=== PATIENT | female | born 1945 | race Caucasian/White ===

== ENCOUNTER 2017-07-03 13:51 | Observation (INO) | payer MEDICARE, OTHER, SELFPAY ==
[2017-07-03] VITALS (9 sets, daily range): BP systolic 127–153; BP diastolic 75–98; PULSE 71–76; RESP 16–20; TEMP 36.3–37.2; O2SAT 96–98; BMI 38.1; BMI 38.7
--- NOTE | 2017-07-03 13:55 | NURSING ---
NO OLD EKGS
--- NOTE | 2017-07-03 14:01 | EKG12_ITS ---
Test Reason : NEURO Blood Pressure : / mmHG Vent. Rate : 076 BPM Atrial Rate : 076 BPM P-R Int : 328 ms QRS Dur : 098 ms QT Int : 394 ms P-R-T Axes : 041 024 043 degrees QTc Int : 443 ms Sinus rhythm with 1st degree A-V block Otherwise normal ECG Confirmed by ELMER EVANS, JOSUÉ ([id number]), video tape editor ALEXANDER QUISPE ([id number]) on 07/05/2017 3:13:00 PM Referred By: ZOLTAN Confirmed By:JOSUÉ PAYNE MD
--- NOTE | 2017-07-03 14:01 | CT_ITS ---
STUDY: CT BRAIN WITHOUT CONTRAST REASON FOR EXAM: Female, 72 years old. 7 onset of left arm weakness and garbled speech at 12:30 AM today. All symptoms have resolved. RADIATION DOSAGE (If Supplied By Facility): CTDIvol = ( 44.99 ) mGy, DLP = ( 728.62 ) mGycm TECHNIQUE: Transaxial CT imaging of the brain was performed without administration of intravenous contrast material. Coronal and sagittal reconstructions were also performed. Individualized dose optimization techniques were used for this CT. COMPARISON: None. FINDINGS: Normal soft tissue structures. Normal calvarium. Normal size ventricles and extra-axial spaces for the patient's age. Hypodensities in the subcortical white matter and periventricular white matter of both cerebral hemispheres are chronic white matter ischemic changes. Normal basal ganglia and thalami. Normal brainstem. Normal cerebellum. There is no intracranial hemorrhage. There are no findings of an acute ischemic infarction. Sclerotic wall thickening with mucosal thickening of the right maxillary sinus and contraction due to chronic sinusitis. Benign mucus retention cyst and minimal mucosal thickening in the left maxillary sinus. The remaining paranasal sinuses are normal. CT/Brain/Head without Contrast IMPRESSION: 1. No CT evidence of intracranial bleeding or acute ischemic infarct at this time. 2. Chronic white matter ischemic changes in both cerebral hemispheres. Electronically Signed: Jovon Argueta MD at 14:35 EDT , Service support ,
[2017-07-03 14:12] LABS: Absolute Lymphocyte Count 1.56 X10^3/ul (0.83-4.51); Absolute Neutrophil Count 5.1 X10^3/uL (2.0-7.7); Basophil# 0.05 X10^3/uL; Basophil% 0.6 % (0-1); Eosinophil# 0.66 X10^3/uL; Eosinophils% 8.4 % (0-5); Hematocrit 36.5 % (37-47); Hemoglobin 12.4 g/dl (12.0-15.0); Lymphocyte # 1.56 X10^3/ul (4.0); Lymphocyte % 19.8 % (19-41); Mean Corpuscular Hgb 30.3 pg (27.0-32.0); Mean Corpuscular Volume 89.2 fL (81-99); Mean Platelet Vol. 9.1 fl (6.2-12.0); Monocyte# 0.52 X10^3/uL; Monocyte% 6.6 % (0-10); Neutrophil # 5.07 X10^3/uL (2.7-7.7); Neutrophil % 64.5 % (47-70); POSITIVE COUNT NO; POSITIVE DIFFERENTIAL NO; POSITIVE MORPHOLOGY NO; Platelet Count 391 K/mm3 (150-450); RBC Distribution Width CV 14.4 % (11.6-14.6); RBC Distribution Width SD 46.7 fl (35.1-43.9); Red Blood Count 4.09 M/mm3 (4.2-5.4); White Blood Count 7.9 K/mm3 (4.4-11.0)
[2017-07-03 14:18] LABS: Prothrombin Time (Protime)PT. 13.1 SECONDS (11.7-14.9)
[2017-07-03 14:19] LABS: Partial Thromboplast Time 29.7 Seconds (24.1-36.2)
--- NOTE | 2017-07-03 14:20 | RAD_ITS ---
STUDY: X-RAY CHEST REASON FOR EXAM: Female, 72 years old. Left-sided weakness. TECHNIQUE: AP upright portable view. COMPARISON: None. FINDINGS: Pulmonary hyperinflation. The lungs are clear. There is no demonstrated pleural abnormality. Normal size heart. Normal mediastinum and manoj. Normal visualized pulmonary arteries. Normal visualized aortic arch and descending thoracic aorta. Mild dextroscoliosis of the thoracic spine and accentuated by rotated positioning. Normal visualized ribs, clavicles, and shoulders. Prominent retrocardiac region soft tissue is most likely large gastric hernia. RAD/Chest 1 View IMPRESSION: 1. No acute cardiopulmonary pathology. 2. Pulmonary hyperinflation is suspicious for mild COPD. 3. Large left gastric hernia. Electronically Signed: Jovon Argueta MD at 14:58 EDT , Service support ,
--- NOTE | 2017-07-03 14:27 | ED.VISSUMM ---
- ER Visit Summary Date of Service: 07/03/17 Chief Complaint: Left arm weakness and speech difficulty History of Present Illness: The patient is a 72 F who states that at 12:40 PM this afternoon she developed difficulty moving her left arm. Patient states her arm would not go where she wanted it to go. She did not have any paresthesias. She called her who is nearby and she had difficulty speaking and expressing what she wanted to say to him. She states that her speech was very slurred. He came to check on her and symptoms were resolved by 1 PM. Patient presents here shortly before 2 PM for evaluation. Patient denies headache at present and did not have a headache with this episode. She did state that she had had some floaters in her left eye and a mild headache last week. Past history significant for hypertension and high cholesterol. Physical Examination: Blood pressure is 151/98, temperature 99.0, heart rate 76, respiratory rate 18, pulse ox 98% on room air. Patient sitting upright in bed no acute distress. Head neck examination is grossly unremarkable. Heart is regular rate and rhythm. Lung sounds are clear. Abdomen is soft and nontender. Neuro exam at this time reveals an NIH score of 0. Test Results: EKG is sinus at 76 with a first-degree AV block. No acute ischemia is noted. CT head shows no evidence of acute bleed or ischemic infarct. Portable chest x-ray is possible mild COPD with evidence of a hiatal hernia. CBC and chemistry studies are normal. Coags normal. Troponin is less than 0.02. Emergency Department Course and Treatment: On repeat evaluation patient is resting comfortably. She has had no recurrence of her symptoms. Patient will be admitted for further stroke workup and evaluation. Treatment Plan: [] Disposition: Admit Impression: TIA This note was generated with [employer] dictation software. It may contain incorrect words, spelling, and punctuation that were not noted in review of the chart prior to signing ED Disposition - Plan for ED Patient: Chief Complaint: Neuro S/Sx Referrals: Bright Gupta MD [Primary Care Provider] -
[2017-07-03 14:31] LABS: Anion Gap 8 (5-15); BUN 15 mg/dL (7-18); BUN/Creat Ratio 17.8 RATIO (10-20); Calcium,Total 8.7 mg/dL (8.5-10.1); Chloride 99 mmol/L (98-107); Creatinine, Serum 0.84 mg/dL (0.55-1.02); EST Glomerular Filtration Rate 71 mL/min (>60); Est Glom Filt Rate - Afr Amer 86 mL/min (>60); Estimated Creatinine Clearance 47.03 ml/min; Glucose 130 mg/dL (74-106); Potassium 3.6 mmol/L (3.5-5.1); Sodium Level 136 mmol/L (136-145)
--- NOTE | 2017-07-03 15:19 | NURSING ---
PCU OBS TIA, LEFT ARM WEAKNESS, DYSPHGIA SHANE
--- NOTE | 2017-07-03 15:55 | PCM.HP.STD ---
<Emily Blandon - Last Filed: 07/03/17 16:30> Problem List (1) Hypertension Status: Chronic (2) Hyperlipemia Status: Chronic (3) Zenkers diverticulum Status: Chronic (4) GERD (gastroesophageal reflux disease) Status: Chronic (5) CAD (coronary artery disease) Status: Chronic (6) Marijuana use Status: Chronic (7) Obesity (BMI 30-39.9) Status: Chronic History of Present Illness Date of Admission: 07/03/17 Chief Complaint: Left facial droop, slurred speech, left arm weakness. The patient is a 72 year old F who presents to the emergency room with left facial droop, slurred speech, left arm weakness which began around 12:45 PM today and resolved by approximately 1 PM. Patient states Tuesday and Tuesday this past week she noticed vision changes in her left eye and describes a zigzag appearance in her vision which came intermittently a few times and has since resolved. She denies headache. Her symptoms have now completely resolved. She denies history of stroke. She denies chest pain, shortness of breath. She has a past medical history of hypertension, hyperlipidemia, GERD, Zenker's diverticulum, CAD, marijuana use, occasional tobacco use. She has a remote history of detached left retina. Patient denies recent illness or other associated symptoms. Past Medical History Past Medical History (Chronic Problems): Chronic Problems Hypertension (Chronic) Hyperlipemia (Chronic) Zenkers diverticulum (Chronic) GERD (gastroesophageal reflux disease) (Chronic) CAD (coronary artery disease) (Chronic) Marijuana use (Chronic) Obesity (BMI 30-39.9) (Chronic) Allergies quinapril [From Accupril] Adverse Reaction (Verified 07/03/17 14:05) Other Home Medications: Ambulatory Orders Medication Instructions Recorded Aspirin [Aspirin, Baby] 81 mg PO QHS 01/18/17 Atenolol [Tenormin] 25 mg PO DAILY 01/18/17 Cholecalciferol (VIT D3) [Vitamin 2,000 unit PO DAILY 01/18/17 D] Cyanocobalamin (Vitamin B-12) 1,000 mcg PO DAILY 01/18/17 [Vitamin B12] Folic Acid 2 mg PO DAILY@0800 01/18/17 Losartan/Hydrochlorothiazide 1 each PO DAILY 01/18/17 [Losartan-Hctz 100-25 mg Tab] Multivitamins,Therapeutic 1 tablet PO DAILY 01/18/17 [Multivitamin] Omeprazole Magnesium [Prilosec Otc] 20 mg PO DAILY 01/18/17 Psyllium [Metamucil] 1 packet PO DAILY 01/18/17 Atorvastatin Calcium [Lipitor] 40 mg PO DAILY 07/03/17 Surgical History: - - Tubal ligation, lymph node removal left neck due to necrotic lymph node, Psychiatric History: No pertinent psych hx [employer] History: No pertinent [employer] history Lives: Spouse/ Significant Other Smoking Status: Current some day smoker Alcohol: Occasional Drugs: Marijuana - *Family History Maternal History Items: Hypertension Paternal History Items: Cancer - Colon Review of Systems Constitutional: Denies: Chills, Fever, Weight Change HEENT: Denies: Head Aches, Sinus Congestion, Sinus Drainage Cardiovascular: Denies: Chest Pain, Palpitations Respiratory: Denies: Cough, Shortness of breath at rest, Sputum production Gastrointestinal: Denies: Abdominal Pain, Nausea, Vomiting Genitourinary: Denies: Dysuria Musculoskeletal: Denies: Joint Pain, Joint Tenderness Skin: Denies: Rash, Wounds Neurological: Reports: Blurred vision - Left eye, resolved., Slurred speech, Numbness - Left arm, - - Left facial droop. Psychiatric: Denies: Anxiety, Depression, Homicidal Ideations, Suicidal Ideations Hematologic/ Lymphatic: Denies: Easy Bruising, Easy Bleeding VTE Information - Inpt Only VTE Present on Admission: No VTE Mechan Device Prophylaxis: None VTE Pharm Prophylaxis ordered?: Yes - Physical Exam General: Alert, Oriented x3, Cooperative, No apparent distress HEENT: Atraumatic, PERRLA, EOMI, Normocephalic Neck: Supple, No JVD, Negative Carotid Bruits Lungs: Clear to auscultation, Normal air movement Cardiovascular: Regular rate, Regular Rhythm, Normal S1, Normal S2, No murmurs Abdomen: Bowel Sounds Present, Soft, Non Tender Extremities: No clubbing, No cyanosis, No edema, Capillary Refill Less than 3 Seconds Skin: No rashes, No breakdown Musculoskeletal: No Tenderness to Palpation of Joints or Extremities Neurological: Cranial nerves II-XII grossly intact, Neuro grossly intact Psych/Mental Status: Normal Affect, Appropriate Vital Signs Temp Pulse Resp BP Pulse Ox 99.0 F 76 18 153/83 H 98 07/03/17 13:53 07/03/17 15:34 07/03/17 15:34 07/03/17 15:34 07/03/17 15:34 Oxygen Delivery Method Room Air Weight: 91.6 kg Body Mass Index (BMI) 38.1 Laboratory Tests Past 24 Hrs 07/03/17 07/03/17 07/03/17 14:01 14:01 14:01 WBC 7.9 RBC 4.09 L Hgb 12.4 Hct 36.5 L MCV 89.2 MCH 30.3 MCHC 34.0 RDW 14.4 RDW Differential 46.7 H Plt Count 391 MPV 9.1 Immature Gran % (Auto) 0.100 Neut % (Auto) 64.5 Lymph % (Auto) 19.8 [place] % (Auto) 6.6 Eos % (Auto) 8.4 H Baso % (Auto) 0.6 Absolute Neuts (auto) 5.1 Absolute Lymphs (auto) 1.56 Total Counted Not Reportable PT 13.1 INR 1.0 APTT 29.7 Sodium 136 Potassium 3.6 Chloride 99 Carbon Dioxide 29.0 Anion Gap 8 BUN 15 Creatinine 0.84 Estim Creat Clear Calc 47.03 Est GFR (MDRD) Af Amer 86 Est GFR (MDRD) Non-Af 71 BUN/Creatinine Ratio 17.8 Glucose 130 H Calcium 8.7 Troponin I < 0.02 Assessment/Plan 1. Suspected TIA-previously reported left facial droop, slurred speech and left arm weakness. These resolved in approximately 15-20 minutes. NIH currently 0. EKG sinus rhythm with first-degree AV block. No evidence of ischemia. CT without evidence of acute bleed or ischemic infarct. Chest x-ray shows possible mild COPD and hiatal hernia. Troponin negative ?1. Glucose elevated on admission, 130. Complete hemoglobin A1c. Check fasting lipid panel in a.m. Check TSH, mag. Complete MRI of brain. CTA head/neck. Consult neurology. PT/OT/ST. 2. Hypertension-stable, continue home regimen. 3. Hyperlipidemia-continue statin. Fasting lipid panel in a.m. 4. CAD-continue aspirin, statin. 5. GERD- Continue PPI. Patient underwent EGD January [address] Carvalho which showed moderate hiatal hernia, mid esophageal diverticulum, Zenker's diverticulum. 6. Tobacco use/marijuana use-encouraged smoking cessation. 7. Obesity- Diet and lifestyle modifications encouraged. DVT prophylaxis-Lovenox subcu. This patient was seen by STEFAN Lizama under the supervision of Dr. Oaets. <Landon Oates - Last Filed: 07/03/17 17:06> History of Present Illness As mentioned above symptoms lasted for about 15-20 minutes. I agree with above note [] Past Medical History Allergies quinapril [From Accupril] Adverse Reaction (Verified 07/03/17 14:05) Other - Physical Exam General: Alert, Oriented x3, Cooperative HEENT: Atraumatic, PERRLA, EOMI, Normocephalic Neck: Supple, No JVD, Negative Carotid Bruits Lungs: Clear to auscultation, Normal air movement Cardiovascular: Regular rate, No murmurs, - - EKG shows normal sinus rhythm at 76 bpm Abdomen: Bowel Sounds Present, Soft, Non Tender Extremities: No edema, Capillary Refill Less than 3 Seconds Skin: No rashes, No breakdown Musculoskeletal: No Tenderness to Palpation of Joints or Extremities, Arthritic Changes Neurological: Cranial nerves II-XII grossly intact Psych/Mental Status: Normal Affect, Appropriate Vital Signs Temp Pulse Resp BP Pulse Ox 98.9 F 74 18 135/75 H 97 07/03/17 16:20 07/03/17 16:20 07/03/17 16:20 07/03/17 16:20 07/03/17 16:20 Oxygen Delivery Method Room Air Weight: 191 lb 9.307 oz Body Mass Index (BMI) 38.7 Assessment/Plan This patient was seen in conjunction with Emily SANCHEZ. I have independently interviewed and examined the patient and reviewed pertinent history, examination findings, laboratory and plan of management. I have reviewed the note and agree with the documented findings with the few additional points. In brief, patient is admitted for TIA symptoms as mentioned above. Patient denies prior stroke, coronary artery disease or peripheral artery disease. Admitted for stroke workup as mentioned above. I have discussed my assessment with Emily SANCHEZ and orders have been reviewed. Code Visit OBSV E&M: 02674 Initial observation care L3
--- NOTE | 2017-07-03 16:26 | CT_ITS ---
STUDY: CTA NECK WITH CONTRAST REASON FOR EXAM: Female, 72 years old. CVA, left sided weakness and garbled speech earlier today, all symptoms resolved. Hx hypertension. RADIATION DOSAGE (If Supplied By Facility): CTDIvol = ( 16.28 ) mGy, DLP = ( 712.41 ) mGycm TECHNIQUE: CT angiography with multi-detector data acquisition was performed from the aortic arch to the skull base following intravenous administration of 100mL ml of Isovue 370 contrast. MIP images were reconstructed from the axial data set. Post-processing of the angiographic images was performed, with multiplanar reformation and 3D reconstruction. COMPARISON: None. FINDINGS: AORTIC ARCH: There is atherosclerotic calcific plaque formation of the aortic arch and great vessels arising from the aortic arch, without a hemodynamically significant stenosis. There is a normal origin of the brachiocephalic, left common carotid, and left subclavian arteries. Normal origins of the brachiocephalic, left common carotid, and left subclavian arteries. RIGHT CAROTID ARTERIES: Normal right common carotid artery (CCA). Normal right common carotid bulb. There is mild atherosclerotic plaque formation of the origin of the right internal carotid artery with a calculated stenosis of 35%. Normal visualized cervical portion of the right internal carotid artery. Normal origin of the right external carotid artery (ECA). LEFT CAROTID ARTERIES: Normal left common carotid artery (CCA). Normal left common carotid bulb. There is moderate atherosclerotic plaque formation of the origin of the left internal carotid artery with a calculated stenosis of 62%. Normal visualized cervical portion of the left internal carotid artery. Normal origin of the left external carotid artery (ECA). VERTEBRAL ARTERIES: There is nonvisualization of the distal left vertebral artery. This may represent slow flow or stenosis. IMPRESSION: There is mild atherosclerotic plaque formation of the origin of the right internal carotid artery with a calculated stenosis of 35%. There is moderate atherosclerotic plaque formation of the origin of the left internal carotid artery with a calculated stenosis of 62%. There is nonvisualization of the distal left vertebral artery. This may represent slow flow or stenosis. Electronically Signed: Franco Rao MD at 18:22 EDT , Service support , STUDY: CTA OF THE BRAIN REASON FOR EXAM: Female, 72 years old. CVA, left sided weakness and garbled speech earlier today, all symptoms resolved. Hx hypertension. RADIATION DOSAGE (If Supplied By Facility): CTDIvol = ( 16.28 ) mGy, DLP = ( 812.41 ) mGycm TECHNIQUE: CT angiography was performed with a multi-detector CT scanner. Data acquisition was obtained from the skull base through the vertex following intravenous administration of 100 ml of Iso 370. MIP images were reconstructed from the axial data set. Post-processing of the angiographic images was performed, with multiplanar reformation and 3D reconstruction. Individualized dose optimization techniques were used for this CT. COMPARISON: CT Brain 3.18 FINDINGS: Normal bilateral petrous carotid arteries. There is calcified plaque formation of the right cavernous carotid artery, without a cross-sectional luminal stenosis. There is calcified plaque formation of the left cavernous carotid artery, without a cross-sectional luminal stenosis. Normal right A1 segments of the anterior cerebral artery. Normal left A1 segments of the anterior cerebral artery. There is non-visualization of the anterior communicating artery (ACOM). Normal bilateral A2 segments of the anterior cerebral arteries. Normal right M1 and M2 segments of the middle cerebral arteries, with a normal M1 bifurcation. Normal left M1 and M2 segments of the middle cerebral arteries, with a normal M1 bifurcation. There is non-visualization of the right posterior communicating artery (PCOM). Normal left posterior communicating artery (PCOM). Normal bilateral vertebral arteries. Normal basilar artery with a normal basilar bifurcation. The visualized bilateral superior cerebellar (SCA) arteries are normal. Normal bilateral P1, P2 and visualized P3 segments of the posterior cerebral arteries. There is no demonstrated aneurysm of the [place]. There is no demonstrated abnormality of the visualized brain. CT/CTA Head W/WO Contrast IMPRESSION: There is non-visualization of the anterior communicating artery (ACOM). There is non-visualization of the right posterior communicating artery (PCOM). There is calcified plaque formation of the right cavernous carotid artery, without a cross-sectional luminal stenosis. There is calcified plaque formation of the left cavernous carotid artery, without a cross-sectional luminal stenosis. Electronically Signed: Franco Rao MD at 18:26 EDT , Service support ,
--- NOTE | 2017-07-03 16:26 | CT_ITS ---
STUDY: CTA NECK WITH CONTRAST REASON FOR EXAM: Female, 72 years old. CVA, left sided weakness and garbled speech earlier today, all symptoms resolved. Hx hypertension. RADIATION DOSAGE (If Supplied By Facility): CTDIvol = ( 16.28 ) mGy, DLP = ( 712.41 ) mGycm TECHNIQUE: CT angiography with multi-detector data acquisition was performed from the aortic arch to the skull base following intravenous administration of 100mL ml of Isovue 370 contrast. MIP images were reconstructed from the axial data set. Post-processing of the angiographic images was performed, with multiplanar reformation and 3D reconstruction. COMPARISON: None. FINDINGS: AORTIC ARCH: There is atherosclerotic calcific plaque formation of the aortic arch and great vessels arising from the aortic arch, without a hemodynamically significant stenosis. There is a normal origin of the brachiocephalic, left common carotid, and left subclavian arteries. Normal origins of the brachiocephalic, left common carotid, and left subclavian arteries. RIGHT CAROTID ARTERIES: Normal right common carotid artery (CCA). Normal right common carotid bulb. There is mild atherosclerotic plaque formation of the origin of the right internal carotid artery with a calculated stenosis of 35%. Normal visualized cervical portion of the right internal carotid artery. Normal origin of the right external carotid artery (ECA). LEFT CAROTID ARTERIES: Normal left common carotid artery (CCA). Normal left common carotid bulb. There is moderate atherosclerotic plaque formation of the origin of the left internal carotid artery with a calculated stenosis of 62%. Normal visualized cervical portion of the left internal carotid artery. Normal origin of the left external carotid artery (ECA). VERTEBRAL ARTERIES: There is nonvisualization of the distal left vertebral artery. This may represent slow flow or stenosis. IMPRESSION: There is mild atherosclerotic plaque formation of the origin of the right internal carotid artery with a calculated stenosis of 35%. There is moderate atherosclerotic plaque formation of the origin of the left internal carotid artery with a calculated stenosis of 62%. There is nonvisualization of the distal left vertebral artery. This may represent slow flow or stenosis. Electronically Signed: Franco Rao MD at 18:22 EDT , Service support , STUDY: CTA OF THE BRAIN REASON FOR EXAM: Female, 72 years old. CVA, left sided weakness and garbled speech earlier today, all symptoms resolved. Hx hypertension. RADIATION DOSAGE (If Supplied By Facility): CTDIvol = ( 16.28 ) mGy, DLP = ( 812.41 ) mGycm TECHNIQUE: CT angiography was performed with a multi-detector CT scanner. Data acquisition was obtained from the skull base through the vertex following intravenous administration of 100 ml of Iso 370. MIP images were reconstructed from the axial data set. Post-processing of the angiographic images was performed, with multiplanar reformation and 3D reconstruction. Individualized dose optimization techniques were used for this CT. COMPARISON: CT Brain 3.18 FINDINGS: Normal bilateral petrous carotid arteries. There is calcified plaque formation of the right cavernous carotid artery, without a cross-sectional luminal stenosis. There is calcified plaque formation of the left cavernous carotid artery, without a cross-sectional luminal stenosis. Normal right A1 segments of the anterior cerebral artery. Normal left A1 segments of the anterior cerebral artery. There is non-visualization of the anterior communicating artery (ACOM). Normal bilateral A2 segments of the anterior cerebral arteries. Normal right M1 and M2 segments of the middle cerebral arteries, with a normal M1 bifurcation. Normal left M1 and M2 segments of the middle cerebral arteries, with a normal M1 bifurcation. There is non-visualization of the right posterior communicating artery (PCOM). Normal left posterior communicating artery (PCOM). Normal bilateral vertebral arteries. Normal basilar artery with a normal basilar bifurcation. The visualized bilateral superior cerebellar (SCA) arteries are normal. Normal bilateral P1, P2 and visualized P3 segments of the posterior cerebral arteries. There is no demonstrated aneurysm of the [place]. There is no demonstrated abnormality of the visualized brain. CT/CTA Neck W/WO Contrast IMPRESSION: There is non-visualization of the anterior communicating artery (ACOM). There is non-visualization of the right posterior communicating artery (PCOM). There is calcified plaque formation of the right cavernous carotid artery, without a cross-sectional luminal stenosis. There is calcified plaque formation of the left cavernous carotid artery, without a cross-sectional luminal stenosis. Electronically Signed: Franco Rao MD at 18:26 EDT , Service support ,
[2017-07-03 17:11] LABS: Bedside Glucose 109 mg/dL (70-110)
[2017-07-03] MEDS: Aspirin E.C. 325 MG Tablet PO (17:15)
[2017-07-03 17:41] LABS: Hemoglobin A1c 6.2 % (4.2-6.3)
[2017-07-03] MEDS: 0.9% Normal Saline 1,000 ML 75 ML IV (18:24)
[2017-07-03] MEDS: Atorvastatin Calcium 80 MG Tablet PO (22:05)
[2017-07-03 22:51] LABS: Bedside Glucose 126 mg/dL (70-110)
[2017-07-04] VITALS (13 sets, daily range): BP systolic 110–167; BP diastolic 69–87; PULSE 70–89; RESP 16–18; TEMP 36.4–36.8; O2SAT 96–99; BMI 38.7
[2017-07-04] MEDS: 0.9% Normal Saline 1,000 ML 75 ML IV ×2 (00:48→15:51)
[2017-07-04 05:02] LABS: Cholesterol 129 mg/dL (200); High Density Lipoprotein 38 mg/dL; Triglycerides 165 mg/dL
[2017-07-04 05:03] LABS: Very Low Density Lipoprotein 33 mg/dL (5-40)
[2017-07-04] MEDS: Aspirin 81 MG TAB.CHEW PO (08:25)
--- NOTE | 2017-07-04 09:00 | MRI_ITS ---
STUDY: MRI BRAIN WITHOUT CONTRAST REASON FOR EXAM: Female, 72 years old. tia, left sided weakness, garbled speech, lt facial droop TECHNIQUE: Standardized multiplanar fat and water weighted pulse sequences were obtained. COMPARISON: 07/03/2017CT of the head FINDINGS: There is ventricular enlargement with prominence of the anterior horns and temporal tips of the bilateral lateral ventricles. There is confluent periventricular hyperintensity cloaking the lateral ventricles. There is thinning with bowing of the corpus callosum. There is enlargement of the third ventricle. 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 There are multiple white matter hyperintensities, distributed throughout the deep white matter tracts of the cerebral hemispheres, consistent with moderate chronic white matter ischemic changes. Normal bilateral basal ganglia. Normal thalami. There is no extra-axial fluid accumulation. Normal flow voids within the major intracranial circulation suggesting patency by spin echo criteria. Normal sella turcica, pituitary gland, infundibular stalk, optic chiasm and hypothalamus. Normal tectal plate and pineal gland. There is mucoperiosteal inflammatory disease of the paranasal sinuses consistent with mild chronic sinusitis. MRI/Brain without Contrast IMPRESSION: No acute intracranial abnormality. Moderate chronic microvascular ischemic changes. Findings suggestive of NPH. Electronically Signed: Louie Breaux MD at 11:31 EDT Tel , Service support ,
--- NOTE | 2017-07-04 10:05 | CDU_ITS ---
Reason For Study: CVA Rt. Velocities/BP Lt. Velocities/BP Prox CCA 87/17 cm/sec. Prox CCA 79/23 cm/sec. Mid CCA 67/16 cm/sec. Mid CCA 79/25 cm/sec. Dist CCA 70/20 cm/sec. Dist CCA 65/22 cm/sec. Prox ICA 46/13 cm/sec. Prox ICA 339/110 cm/sec. Mid ICA 78/20 cm/sec. Mid ICA 224/72 cm/sec. Dist ICA 83/28 cm/sec. Dist ICA 96/25 cm/sec. Rt. ICA/CCA = 1.23. Lt. ICA/CCA = 4.29. Prox ECA 95/15 cm/sec. Prox ECA 160/31 cm/sec. Rt. Vert. 37/13 cm/sec. Lt. Vert. 32/8 cm/sec. Right Extracranial There is no significant atherosclerotic plaque noted in the right common carotid artery. There is heterogeneous, irregular atherosclerotic plaque noted in the right internal carotid artery. There is no significant atherosclerotic plaque noted in the right external carotid artery. Antegrade flow is noted in the right vertebral artery. Left Extracranial There is heterogeneous, irregular atherosclerotic plaque noted in the left common carotid artery. There is heterogeneous, irregular atherosclerotic plaque noted in the left internal carotid artery. There is heterogeneous, irregular atherosclerotic plaque noted in the left external carotid artery. Antegrade flow is noted in the left vertebral artery. Procedure Carotid Duplex [id number]. Prelim given to Albina VIGIL. Exam performed portable in patient room. Interpretation Summary Minimal smooth plague at the proximal right internal carotid with <50% stenosis. Normal flow right external carotids Irregular, calcific plague withn the distal left common carotid artery with irregular plague at the proximal internal carotid and >70% stenosis. Moderate disease left external carotid Patent and antegrade vertebrals bilaterally Ordering Physician: Mayco Perry Referring Physician: Ean Gupta Performed By: Gauri Boland, RENARD, RVT
--- NOTE | 2017-07-04 11:11 | PCM.CONS.GEN ---
Reason for Consult Date of Consultation: 07/04/17 Reason for Consultation: tia History of Present Illness: The patient is a 72 year old right handed white female who experienced left arm weakness and slurred speech beginning 1230pm yesterday, resolving by 1pm, normal since. noted left facial droop. 6 days ago while watching tv noted zig-zag ripple fractal vision covered each eye and noted in both eyes, on left side lasting 20minutes then went away. occurred again 5 days ago, then again last night lasting about 20 minutes. no headache. Past Medical History Past Medical History (Chronic Problems): Chronic Problems Hypertension (Chronic) Hyperlipemia (Chronic) Zenkers diverticulum (Chronic) GERD (gastroesophageal reflux disease) (Chronic) CAD (coronary artery disease) (Chronic) Marijuana use (Chronic) Obesity (BMI 30-39.9) (Chronic) Allergies quinapril [From Accupril] Adverse Reaction (Verified 07/03/17 14:05) Other Home Medications: Ambulatory Orders Medication Instructions Recorded Aspirin [Aspirin, Baby] 81 mg PO QHS 01/18/17 Atenolol [Tenormin] 25 mg PO DAILY 01/18/17 Cholecalciferol (VIT D3) [Vitamin 2,000 unit PO DAILY 01/18/17 D] Cyanocobalamin (Vitamin B-12) 1,000 mcg PO DAILY 01/18/17 [Vitamin B12] Folic Acid 2 mg PO DAILY@0800 01/18/17 Losartan/Hydrochlorothiazide 1 each PO DAILY 01/18/17 [Losartan-Hctz 100-25 mg Tab] Multivitamins,Therapeutic 1 tablet PO DAILY 01/18/17 [Multivitamin] Omeprazole Magnesium [Prilosec Otc] 20 mg PO DAILY 01/18/17 Psyllium [Metamucil] 1 packet PO DAILY 01/18/17 Atorvastatin Calcium [Lipitor] 40 mg PO DAILY 07/03/17 Surgical History: - - Tubal ligation, lymph node removal left neck due to necrotic lymph node, Psychiatric History: No pertinent psych hx 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 Lives: Spouse/ Significant Other Smoking Status: Current some day smoker Tobacco Use: Non-smoker Alcohol: Occasional Drugs: Marijuana - *Family History Maternal History Items: Hypertension Paternal History Items: Cancer - Colon Review of Systems Constitutional: Denies: Chills, Fever, Weight Change HEENT: Denies: Head Aches, Sinus Congestion, Sinus Drainage Cardiovascular: Denies: Chest Pain, Palpitations Respiratory: Denies: Cough, Shortness of breath at rest, Sputum production Gastrointestinal: Denies: Abdominal Pain, Nausea, Vomiting Genitourinary: Denies: Dysuria Musculoskeletal: Denies: Joint Pain, Joint Tenderness Skin: Denies: Rash, Wounds Neurological: Denies: Numbness, Tingling, Focal weakness Psychiatric: Denies: Anxiety, Depression, Homicidal Ideations, Suicidal Ideations Hematologic/ Lymphatic: Denies: Easy Bruising, Easy Bleeding - Physical Exam General: Alert, Oriented x3, Cooperative HEENT: Atraumatic, PERRLA, EOMI, Normocephalic Neck: Supple, No JVD, Negative Carotid Bruits Lungs: Clear to auscultation, Normal air movement Cardiovascular: Regular rate, No murmurs Abdomen: Bowel Sounds Present, Soft, Non Tender Extremities: No edema, Capillary Refill Less than 3 Seconds Skin: No rashes, No breakdown Musculoskeletal: No Tenderness to Palpation of Joints or Extremities Neurological: Cranial nerves II-XII grossly intact Psych/Mental Status: Normal Affect, Appropriate Vital Signs Temp Pulse Resp BP Pulse Ox 36.8 C 74 16 146/87 H 99 07/04/17 08:02 07/04/17 08:02 07/04/17 08:02 07/04/17 08:02 07/04/17 08:02 Oxygen Delivery Method Room Air Weight: 86.9 kg Body Mass Index (BMI) 38.7 Intake and Output for Last 24 Hours 07/02/17 07/03/17 07/04/17 23:59 23:59 23:59 Intake Total 240 / 240 240 / 240 Balance 240 / 240 240 / 240 Laboratory Tests Past 24 Hrs 07/03/17 07/03/17 07/04/17 17:24 21:30 04:00 Troponin I < 0.02 < 0.02 < 0.02 Triglycerides 165 Cholesterol 129 LDL Cholesterol 58 VLDL Cholesterol 33 HDL Cholesterol 38 L POC Glucose 07/03/17 07/03/17 22:02 17:00 POC Glucose 126 H 109 Current Home Med List Medication Instructions Recorded Confirmed Type Aspirin [Aspirin, Baby] 81 mg PO QHS 01/18/17 07/03/17 History Atenolol [Tenormin] 25 mg PO DAILY 01/18/17 07/03/17 History Cholecalciferol (VIT D3) [Vitamin 2,000 unit PO DAILY 01/18/17 07/03/17 History D] Cyanocobalamin (Vitamin B-12) 1,000 mcg PO DAILY 01/18/17 07/03/17 History [Vitamin B12] Folic Acid 2 mg PO DAILY@0800 01/18/17 07/03/17 History Losartan/Hydrochlorothiazide 1 each PO DAILY 01/18/17 07/03/17 History [Losartan-Hctz 100-25 mg Tab] Multivitamins,Therapeutic 1 tablet PO DAILY 01/18/17 07/03/17 History [Multivitamin] Omeprazole Magnesium [Prilosec Otc] 20 mg PO DAILY 01/18/17 07/03/17 History Psyllium [Metamucil] 1 packet PO DAILY 01/18/17 07/03/17 History Atorvastatin Calcium [Lipitor] 40 mg PO DAILY 07/03/17 07/03/17 History mri reviewed, no acute cta reviewed, ? prox left ica stenosis Assessment/Plan tia vs complex migraine, left ica stenosis change asa to plavix continue statin echo await carotid us if above ok, dc with op followup outpt psg dc smoking
--- NOTE | 2017-07-04 11:18 | ECHOCS_ITS ---
Reason For Study: TIA/CVA Procedure This was a 2D Doppler, Color Flow transthoracic echocardiogram. Contrast injection was performed. The exam was of fair technical quality due to body habitus. Exam performed portable in patient room. Left Ventricle Normal LV size. Left ventricular systolic function is normal. The estimated ejection fraction is 65 %. No evidence for diastolic dysfunction. No regional wall motion abnormalities noted. Right Ventricle Normal RV size. Normal systolic function. Atria Normal left atrium. Normal right atrium. Bubble contrast study negative for right to left interatrial shunt. Mitral Valve Normal mitral valve. Tricuspid Valve Normal tricuspid valve. Mild (1+) tricuspid valve insufficiency. Pulmonary artery systolic pressure is 38 mmHg. Aortic Valve Normal aortic valve. Pulmonic Valve Normal pulmonic valve. Great Vessels Normal aortic root. The pulmonary artery is normal size. Pericardium/Pleural No pericardial effusion. Medication Diluted definity 3ml given slow IV push to enhance endocardial definition. Performed a rapid injection of agitated mix of 9 cc saline and 1cc air to assess for atrial septal defect. MMode/2D Measurements & Calculations LVIDd: 3.3 cm IVSd: 1.3 cm LVOT diam: 2.0 cm LVIDs: 2.0 cm LVPWd: 1.1 cm LVOT area: 3.3 cm2 RVDd: 2.8 cm FS: 38.3 % Ao root diam: 3.3 cm LAV(MOD-bp): 43.6 ml LA dimension: 3.2 cm LAV(MOD-bp) Indexed: 24.1 ml/m2 LA A4 area: 15.8 cm2 LAV(MOD-sp2): 42.9 ml LAV(MOD-sp4): 36.7 ml RA A4 area: 12.2 cm2 Doppler Measurements & Calculations MV E max ashok: 146.8 cm/sec MV V2 max: 140.8 cm/sec Ao V2 max: 160.0 cm/sec MV A max ashok: 157.0 cm/sec MV max P.9 mmHg Ao max P.2 mmHg MV E/A: 0.93 MV V2 mean: 92.4 cm/sec JO(V,D): 3.1 cm2 MV mean P.9 mmHg MV V2 VTI: 43.1 cm LV V1 max: 149.3 cm/sec PA V2 max: 87.5 cm/sec TR max ashok: 288.0 cm/sec LV V1 max P.9 mmHg TR max P.2 mmHg Interpretation Summary Normal LV size. Left ventricular systolic function is normal. The estimated ejection fraction is 65 %. No evidence for diastolic dysfunction. Pulmonary artery systolic pressure is 38 mmHg. Contrast injection was performed. Ordering Physician: Mayco Perry Referring Physician: SHRUTHI OCASIO Performed By: Arlette Lee RDCS, RVT
--- NOTE | 2017-07-04 14:59 | PN_ITS ---
<Emily Blandon - Last Filed: 07/04/17 14:58> Subjective: Patient seen and examined. States she did have a few episodes of flashes in her vision last night which has since resolved. She does state she has an upcoming follow-up appointment with ophthalmology for previous partial retinal detachment of the left eye and has had these symptoms in the past. Otherwise denies neurologic symptoms. Denies other complaints. - Physical Exam General: Alert, Oriented x3, Cooperative HEENT: Atraumatic, PERRLA, EOMI, Normocephalic Neck: Supple, No JVD, Negative Carotid Bruits Lungs: Clear to auscultation, Normal air movement Cardiovascular: Regular rate, Regular Rhythm, Normal S1, Normal S2, No murmurs Abdomen: Bowel Sounds Present, Soft, Non Tender, Non-Distended, Obese Extremities: No clubbing, No cyanosis, No edema, Capillary Refill Less than 3 Seconds Skin: No rashes, No breakdown Musculoskeletal: No Tenderness to Palpation of Joints or Extremities Neurological: Cranial nerves II-XII grossly intact, Neuro grossly intact Psych/Mental Status: Normal Affect, Appropriate Vital Signs Temp Pulse Resp BP Pulse Ox 98.2 F 76 16 147/87 H 98 07/04/17 14:02 07/04/17 14:02 07/04/17 14:02 07/04/17 14:02 07/04/17 14:02 Oxygen Delivery Method Room Air Weight: 86.9 kg Body Mass Index (BMI) 38.7 Intake and Output for Last 24 Hours 07/02/17 07/03/17 07/04/17 23:59 23:59 23:59 Intake Total 240 / 240 1609 / 1609 Balance 240 / 240 1609 / 1609 Laboratory Tests Past 24 Hrs 07/03/17 07/03/17 07/04/17 17:24 21:30 04:00 Troponin I < 0.02 < 0.02 < 0.02 Triglycerides 165 Cholesterol 129 LDL Cholesterol 58 VLDL Cholesterol 33 HDL Cholesterol 38 L POC Glucose 07/03/17 07/03/17 22:02 17:00 POC Glucose 126 H 109 Medical Necessity - Tobacco Use Smoking Status: Current some day smoker Tobacco Use: Non-smoker Assessment/Plan 1. Suspected TIA versus atypical migraine-previously reported left facial droop , slurred speech and left arm weakness. These resolved in approximately 15-20 minutes. NIH currently 0. EKG sinus rhythm with first-degree AV block. No evidence of ischemia. CT without evidence of acute bleed or ischemic infarct. Chest x-ray shows possible mild COPD and hiatal hernia. Troponin negative ?4. Neurology consulted. 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 Moderate chronic microvascular ischemic changes. No acute intracranial abnormality. Echocardiogram and carotid ultrasound pending. CTA of neck showed right internal carotid artery stenosis 35%, left internal coronary artery stenosis 62%. Continue Plavix, statin. PT/OT/ST. neurology recommending outpatient PSG. 2. Hypertension-stable, continue home regimen. 3. Hyperlipidemia-continue statin. . 4. CAD-continue plavix, statin. 5. GERD- Continue PPI. Patient underwent EGD January [address] Carvalho which showed moderate hiatal hernia, mid esophageal diverticulum, Zenker's diverticulum. 6. Tobacco use/marijuana use-encouraged smoking cessation. 7. Obesity- Diet and lifestyle modifications encouraged. DVT prophylaxis-Lovenox subcu. This patient was seen by STEFAN Lizama under the supervision of Dr. Garcia. <Meche Garcia - Last Filed: 07/05/17 07:22> - Physical Exam Vital Signs Temp Pulse Resp BP Pulse Ox 98.9 F 70 16 147/74 H 98 07/05/17 03:20 07/05/17 03:20 07/05/17 03:20 07/05/17 03:20 07/05/17 03:20 Oxygen Delivery Method Room Air Weight: 86.9 kg Body Mass Index (BMI) 38.7 Intake and Output for Last 24 Hours 07/03/17 07/04/17 07/05/17 23:59 23:59 23:59 Intake Total 240 / 240 2579 / 2579 948 / 948 Balance 240 / 240 2579 / 2579 948 / 948 Assessment/Plan Patient was seen and examined independently. Interval history, physical exam and assessment and plan as noted above by Emily Blandon, nurse practitioner. Patient complains of flashes of light in the left eye. Symptoms of left-sided weakness with facial droop and slurred speech resulting less than 30 minutes. No acute events on telemetry. Appreciate neurology consult. Rest of results are pending. Will follow-up on the results Code Visit OBSV E&M: 15767 Subsequent observation care L3
--- NOTE | 2017-07-04 16:00 | NURSING ---
dr. drake consulted, in surgery and surgical nurse took report about consult.
--- NOTE | 2017-07-04 17:17 | PCM.CONS.GEN ---
Reason for Consult Date of Consultation: 07/04/17 History of Present Illness: The patient is a 72 year old F who was admitted yesterday with transient left facial droop and left eye vision problems and temporary left upper extremity weakness. [place] to have had a TIA or possible migraine.MRI and CTA were obtained. There was felt to be calcific 62% narrowing of the left internal carotid. A carotid duplex exam pain. This demonstrates significant irregular calcific plaque at the distal left common carotid at the proximal left internal carotid with greater than 70% stenosis. Patient had been on low-dose aspirin at the time of the event. She has not had any previous TIAs or strokes. She denies any previous myocardial infarction. She is a chronic marijuana user and also cigarette user. She is noted be significantly overweight. In addition she has a history one year ago of difficult intubation for hemorrhoidectomy. In fact that intubation failed at the local [facility] outpatient center. She then states that she had a successful intubation here at the [facility] which allowed her to have an upper endoscopy by Dr. Rubio which demonstrated a large Zenker's esophageal which did not require additional treatment. Asked to see this patient in consultation by Dr. Perry in electronic copy my surgical consult will be present within the electronic medical record Past Medical History Past Medical History (Chronic Problems): Chronic Problems Hypertension (Chronic) Hyperlipemia (Chronic) Zenkers diverticulum (Chronic) GERD (gastroesophageal reflux disease) (Chronic) CAD (coronary artery disease) (Chronic) Marijuana use (Chronic) Obesity (BMI 30-39.9) (Chronic) Allergies quinapril [From Accupril] Adverse Reaction (Verified 07/03/17 14:05) Other Home Medications: Ambulatory Orders Medication Instructions Recorded Aspirin [Aspirin, Baby] 81 mg PO QHS 01/18/17 Atenolol [Tenormin] 25 mg PO DAILY 01/18/17 Cholecalciferol (VIT D3) [Vitamin 2,000 unit PO DAILY 01/18/17 D] Cyanocobalamin (Vitamin B-12) 1,000 mcg PO DAILY 01/18/17 [Vitamin B12] Folic Acid 2 mg PO DAILY@0800 01/18/17 Losartan/Hydrochlorothiazide 1 each PO DAILY 01/18/17 [Losartan-Hctz 100-25 mg Tab] Multivitamins,Therapeutic 1 tablet PO DAILY 01/18/17 [Multivitamin] Omeprazole Magnesium [Prilosec Otc] 20 mg PO DAILY 01/18/17 Psyllium [Metamucil] 1 packet PO DAILY 01/18/17 Atorvastatin Calcium [Lipitor] 40 mg PO DAILY 07/03/17 Surgical History: - - Tubal ligation, lymph node removal left neck due to necrotic lymph node, Psychiatric History: No pertinent psych hx 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 Lives: Spouse/ Significant Other Smoking Status: Current some day smoker Tobacco Use: Non-smoker Alcohol: Occasional Drugs: Marijuana - *Family History Maternal History Items: Hypertension Paternal History Items: Cancer - Colon Review of Systems Constitutional: Denies: Anorexia Eyes: Reports: Blurred vision HEENT: Denies: Difficulty Hearing Cardiovascular: Denies: Chest Pain Respiratory: Denies: Cough Gastrointestinal: Denies: Abdominal Pain Genitourinary: Denies: Dysuria Musculoskeletal: Denies: Arm Pain Skin: Denies: Dryness Neurological: Denies: Balance problems Psychiatric: Denies: Anxiety Endocrine: Denies: Change in Body Habitus Hematologic/ Lymphatic: Denies: Adenopathy - Physical Exam General: Alert, Oriented x3, Cooperative, No apparent distress HEENT: Atraumatic Oral: Moist Mucosa Neck: Supple Lungs: Clear to auscultation Cardiovascular: Regular rate, - - Heart rates are 3+ bilateral I do not detect any bruits. Brachials and radials are 3+ bilateral. Abdomen: - - The overweight I cannot detect any internal organs Extremities: No clubbing, No cyanosis, No edema Musculoskeletal: No Tenderness to Palpation of Joints or Extremities Lymphatic: No Cervical, Supraclavicular, or Inguinal Adenopathy, - - Well-healed suprasternal incision consistent with her right neck necrotic lymph node resection in 1979 Neurological: Cranial nerves II-XII grossly intact Psych/Mental Status: Normal Affect Vital Signs Temp Pulse Resp BP Pulse Ox 98.2 F 82 16 147/87 H 98 07/04/17 14:02 07/04/17 15:32 07/04/17 14:02 07/04/17 14:02 07/04/17 14:02 Oxygen Delivery Method Room Air Weight: 191 lb 9.307 oz Body Mass Index (BMI) 38.7 Intake and Output for Last 24 Hours 07/02/17 07/03/17 07/04/17 23:59 23:59 23:59 Intake Total 240 / 240 1609 / 1609 Balance 240 / 240 1609 / 1609 Laboratory Tests Past 24 Hrs 07/03/17 07/03/17 07/04/17 17:24 21:30 04:00 Troponin I < 0.02 < 0.02 < 0.02 Triglycerides 165 Cholesterol 129 LDL Cholesterol 58 VLDL Cholesterol 33 HDL Cholesterol 38 L POC Glucose 07/03/17 22:02 POC Glucose 126 H Assessment/Plan I have reviewed the patient's CT and duplex imaging. This seems to correlate well with her symptoms. I believe that her left carotid disease is etiologic to her TIA. I am recommending to the patient a left carotid endarterectomy with patch angioplasty. I discussed utilizing arterial line monitoring. I discussed the technique, benefits, risks, alternatives. No guarantees of success have been offered. I contrasted this with with carotid stenting. The patient has been initiated on clopidogrel. Her symptoms have resolved. Report of her echocardiogram is pending. Currently inspecting the operating room schedule I will tentatively schedule her for . I appreciate the opportunity of surgical consultation and will revisit her tomorrow morning as well. Malcolm Jolley M.D., F.A.C.S.
--- NOTE | 2017-07-04 17:24 | CON.PCM_ITS ---
Reason for Consult Date of Consultation: 07/04/17 History of Present Illness: The patient is a 72 year old F who was admitted yesterday with transient left facial droop and left eye vision problems and temporary left upper extremity weakness. Gardner to have had a TIA or possible migraine.MRI and CTA were obtained. There was felt to be calcific 62% narrowing of the left internal carotid. A carotid duplex exam pain. This demonstrates significant irregular calcific plaque at the distal left common carotid at the proximal left internal carotid with greater than 70% stenosis. Patient had been on low-dose aspirin at the time of the event. She has not had any previous TIAs or strokes. She denies any previous myocardial infarction. She is a chronic marijuana user and also cigarette user. She is noted be significantly overweight. In addition she has a history one year ago of difficult intubation for hemorrhoidectomy. In fact that intubation failed at the local [facility] outpatient center. She then states that she had a successful intubation here at the [facility] which allowed her to have an upper endoscopy by Dr. Rubio which demonstrated a large Zenker's esophageal which did not require additional treatment. Asked to see this patient in consultation by Dr. Perry in electronic copy my surgical consult will be present within the electronic medical record Past Medical History Past Medical History (Chronic Problems): Chronic Problems Hypertension (Chronic) Hyperlipemia (Chronic) Zenkers diverticulum (Chronic) GERD (gastroesophageal reflux disease) (Chronic) CAD (coronary artery disease) (Chronic) Marijuana use (Chronic) Obesity (BMI 30-39.9) (Chronic) Allergies quinapril [From Accupril] Adverse Reaction (Verified 07/03/17 14:05) Other Home Medications: Ambulatory Orders Medication Instructions Recorded Aspirin [Aspirin, Baby] 81 mg PO QHS 01/18/17 Atenolol [Tenormin] 25 mg PO DAILY 01/18/17 Cholecalciferol (VIT D3) [Vitamin 2,000 unit PO DAILY 01/18/17 D] Cyanocobalamin (Vitamin B-12) 1,000 mcg PO DAILY 01/18/17 [Vitamin B12] Folic Acid 2 mg PO DAILY@0800 01/18/17 Losartan/Hydrochlorothiazide 1 each PO DAILY 01/18/17 [Losartan-Hctz 100-25 mg Tab] Multivitamins,Therapeutic 1 tablet PO DAILY 01/18/17 [Multivitamin] Omeprazole Magnesium [Prilosec Otc] 20 mg PO DAILY 01/18/17 Psyllium [Metamucil] 1 packet PO DAILY 01/18/17 Atorvastatin Calcium [Lipitor] 40 mg PO DAILY 07/03/17 Surgical History: - - Tubal ligation, lymph node removal left neck due to necrotic lymph node, Psychiatric History: No pertinent psych hx COLLEGE RECRUITER History: No pertinent COLLEGE RECRUITER history Lives: Spouse/ Significant Other Smoking Status: Current some day smoker Tobacco Use: Non-smoker Alcohol: Occasional Drugs: Marijuana - *Family History Maternal History Items: Hypertension Paternal History Items: Cancer - Colon Review of Systems Constitutional: Denies: Anorexia Eyes: Reports: Blurred vision HEENT: Denies: Difficulty Hearing Cardiovascular: Denies: Chest Pain Respiratory: Denies: Cough Gastrointestinal: Denies: Abdominal Pain Genitourinary: Denies: Dysuria Musculoskeletal: Denies: Arm Pain Skin: Denies: Dryness Neurological: Denies: Balance problems Psychiatric: Denies: Anxiety Endocrine: Denies: Change in Body Habitus Hematologic/ Lymphatic: Denies: Adenopathy - Physical Exam General: Alert, Oriented x3, Cooperative, No apparent distress HEENT: Atraumatic Oral: Moist Mucosa Neck: Supple Lungs: Clear to auscultation Cardiovascular: Regular rate, - - Heart rates are 3+ bilateral I do not detect any bruits. Brachials and radials are 3+ bilateral. Abdomen: - - The overweight I cannot detect any internal organs Extremities: No clubbing, No cyanosis, No edema Musculoskeletal: No Tenderness to Palpation of Joints or Extremities Lymphatic: No Cervical, Supraclavicular, or Inguinal Adenopathy, - - Well- healed suprasternal incision consistent with her right neck necrotic lymph node resection in 1979 Neurological: Cranial nerves II-XII grossly intact Psych/Mental Status: Normal Affect Vital Signs Temp Pulse Resp BP Pulse Ox 98.2 F 82 16 147/87 H 98 07/04/17 14:02 07/04/17 15:32 07/04/17 14:02 07/04/17 14:02 07/04/17 14:02 Oxygen Delivery Method Room Air Weight: 191 lb 9.307 oz Body Mass Index (BMI) 38.7 Intake and Output for Last 24 Hours 07/02/17 07/03/17 07/04/17 23:59 23:59 23:59 Intake Total 240 / 240 1609 / 1609 Balance 240 / 240 1609 / 1609 Laboratory Tests Past 24 Hrs 07/03/17 07/03/17 07/04/17 17:24 21:30 04:00 Troponin I < 0.02 < 0.02 < 0.02 Triglycerides 165 Cholesterol 129 LDL Cholesterol 58 VLDL Cholesterol 33 HDL Cholesterol 38 L POC Glucose 07/03/17 22:02 POC Glucose 126 H Assessment/Plan I have reviewed the patient's CT and duplex imaging. This seems to correlate well with her symptoms. I believe that her left carotid disease is etiologic to her TIA. I am recommending to the patient a left carotid endarterectomy with patch angioplasty. I discussed utilizing arterial line monitoring. I discussed the technique, benefits, risks, alternatives. No guarantees of success have been offered. I contrasted this with with carotid stenting. The patient has been initiated on clopidogrel. Her symptoms have resolved. Report of her echocardiogram is pending. Currently inspecting the operating room schedule I will tentatively schedule her for . I appreciate the opportunity of surgical consultation and will revisit her tomorrow morning as well. Malcolm Jolley M.D., F.A.C.S.
[2017-07-04] MEDS: Atorvastatin Calcium 80 MG Tablet PO (21:26)
[2017-07-05 03:06] VITALS: PULSE 70
[2017-07-05 03:20] VITALS: BP 147/74; PULSE 70; RESP 16; TEMP 37.2; O2SAT 98
[2017-07-05] MEDS: 0.9% Normal Saline 1,000 ML 75 ML IV (05:08)
--- NOTE | 2017-07-05 06:03 | PCM.PN.SRG ---
Subjective: Pt without new complaint - Physical Exam Vital Signs Temp Pulse Resp BP Pulse Ox 98.9 F 70 16 147/74 H 98 07/05/17 03:20 07/05/17 03:20 07/05/17 03:20 07/05/17 03:20 07/05/17 03:20 Oxygen Delivery Method Room Air Weight: 191 lb 9.307 oz Body Mass Index (BMI) 38.7 Intake and Output for Last 24 Hours 07/03/17 07/04/17 07/05/17 23:59 23:59 23:59 Intake Total 240 / 240 2579 / 2579 Balance 240 / 240 2579 / 2579 Medical Necessity - Tobacco Use Smoking Status: Current some day smoker Tobacco Use: Non-smoker Assessment/Plan She would like to proceed with left CEA Tentatively scheduled for Can discharge if medically cleared Hold plavix on 07/06--may have ASA on 07/06
[2017-07-05 07:31] VITALS: PULSE 81
[2017-07-05 09:20] VITALS: BP 149/83; PULSE 79; RESP 16; TEMP 37.1; O2SAT 98
--- NOTE | 2017-07-05 09:55 | PCM.DC ---
- Discharge Diagnoses Current Active Problems: Current Active and Chronic Problems Hypertension (Chronic) Hyperlipemia (Chronic) Zenkers diverticulum (Chronic) GERD (gastroesophageal reflux disease) (Chronic) CAD (coronary artery disease) (Chronic) Marijuana use (Chronic) Obesity (BMI 30-39.9) (Chronic) You will use the following diet at home:: Cardiac - Low fat/low cholesterol Discharge Activity: Return to Normal Activity Call your doctor if you observe: Shortness of breath, Dizziness, Fainting spells, Chest pain Additional Instructions: -You are scheduled to have surgery on the left carotid artery this , 07/07/[address] Jolley at [facility]. -You were prescribed plavix which thins the blood and is used to prevent stroke. You will need to HOLD this on 07/06/[address] Jolley will instruct you when to resume taking this following surgery. Instead of plavix, you can take an 81mg baby aspirin 07/06/17. -Recommend you discuss sleep study with your primary care physician who can order this test. Allergies/Adverse Reactions: Allergies quinapril [From Accupril] Adverse Reaction (Verified 07/03/17 14:05) Other Medications to take at Discharge Atenolol [Tenormin] 25 mg PO DAILY 01/18/17 Cholecalciferol (VIT D3) [Vitamin D3] 2,000 unit PO DAILY 01/18/17 Cyanocobalamin (Vitamin B-12) [Vitamin B12] 1,000 mcg PO DAILY 01/18/17 Folic Acid 2 mg PO DAILY@0800 01/18/17 Losartan/Hydrochlorothiazide [Losartan-Hctz 100-25 mg Tab] 1 each PO DAILY 01/18/17 Multivitamins,Therapeutic [Multivitamin] 1 tablet PO DAILY 01/18/17 Omeprazole Magnesium [Prilosec Otc] 20 mg PO DAILY 01/18/17 Psyllium [Metamucil] 1 packet PO DAILY 01/18/17 Atorvastatin Calcium [Lipitor] 80 mg PO QHS #30 tab 07/05/17 Clopidogrel Bisulfate [Plavix] 75 mg PO DAILY #30 tab 07/05/17 The following prescriptions were given: Atorvastatin Calcium [Lipitor] 80 mg PO QHS #30 tab Clopidogrel Bisulfate [Plavix] 75 mg PO DAILY #30 tab Primary Care Physician: Bright Gupta MD [Primary Care Provider] - Please follow up with your Primary Care Physician in: 1 Week Please Follow Up With: Malcolm Jolley MD - Left carotid surgery When: 07/07/17 Please Follow Up With: Mayco Perry MD When: 2-4 Weeks Please Follow Up With: Account Processor - Eye doctor When: As previously scheduled, for left eye vision changes. Proposed Discharge Date: 07/05/17
--- NOTE | 2017-07-05 10:03 | DCINST_ITS ---
- Discharge Diagnoses Current Active Problems: Current Active and Chronic Problems Hypertension (Chronic) Hyperlipemia (Chronic) Zenkers diverticulum (Chronic) GERD (gastroesophageal reflux disease) (Chronic) CAD (coronary artery disease) (Chronic) Marijuana use (Chronic) Obesity (BMI 30-39.9) (Chronic) You will use the following diet at home:: Cardiac - Low fat/low cholesterol Discharge Activity: Return to Normal Activity Call your doctor if you observe: Shortness of breath, Dizziness, Fainting spells , Chest pain Additional Instructions: -You are scheduled to have surgery on the left carotid artery this , 07/07/[address] Jolley at [facility]. -You were prescribed plavix which thins the blood and is used to prevent stroke. You will need to HOLD this on 07/06/[address] Jolley will instruct you when to resume taking this following surgery. Instead of plavix, you can take an 81mg baby aspirin 07/06/17. -Recommend you discuss sleep study with your primary care physician who can order this test. Allergies/Adverse Reactions: Allergies quinapril [From Accupril] Adverse Reaction (Verified 07/03/17 14:05) Other Medications to take at Discharge Atenolol [Tenormin] 25 mg PO DAILY 01/18/17 Cholecalciferol (VIT D3) [Vitamin D3] 2,000 unit PO DAILY 01/18/17 Cyanocobalamin (Vitamin B-12) [Vitamin B12] 1,000 mcg PO DAILY 01/18/17 Folic Acid 2 mg PO DAILY@0800 01/18/17 Losartan/Hydrochlorothiazide [Losartan-Hctz 100-25 mg Tab] 1 each PO DAILY 01/18 Multivitamins,Therapeutic [Multivitamin] 1 tablet PO DAILY 01/18/17 Omeprazole Magnesium [Prilosec Otc] 20 mg PO DAILY 01/18/17 Psyllium [Metamucil] 1 packet PO DAILY 01/18/17 Atorvastatin Calcium [Lipitor] 80 mg PO QHS #30 tab 07/05/17 Clopidogrel Bisulfate [Plavix] 75 mg PO DAILY #30 tab 07/05/17 The following prescriptions were given: Atorvastatin Calcium [Lipitor] 80 mg PO QHS #30 tab Clopidogrel Bisulfate [Plavix] 75 mg PO DAILY #30 tab Primary Care Physician: Bright Gupta MD [Primary Care Provider] - Please follow up with your Primary Care Physician in: 1 Week Please Follow Up With: Malcolm Jolley MD - Left carotid surgery When: 07/07/17 Please Follow Up With: Mayco Perry MD When: 2-4 Weeks Please Follow Up With: Legal Secretary - Eye doctor When: As previously scheduled, for left eye vision changes. Proposed Discharge Date: 07/05/17
--- NOTE | 2017-07-05 10:12 | PCM.DC.SUM ---
Discharge Date and Diagnosis Date of Admission: 07/03/17 Date of Discharge: 07/05/17 - Primary Discharge Diagnosis 1. TIA 2. Left carotid stenosis, greater than 70% - Secondary Discharge Diagnosis Chronic Problems Hypertension (Chronic) Hyperlipemia (Chronic) Zenkers diverticulum (Chronic) GERD (gastroesophageal reflux disease) (Chronic) CAD (coronary artery disease) (Chronic) Marijuana use (Chronic) Obesity (BMI 30-39.9) (Chronic) Hospital Course and Treatment Imaging Results: Diagnostic Data Brain CT 07/03/17 14:[address]: 1[address] No [address] evidence of intracranial bleeding or acute ischemic infarct at this time. 2. Chronic white matter ischemic changes in both cerebral hemispheres. Electronically Signed: Jovon Argueta MD at 14:35 EDT , Service support , Chest X-Ray 07/03/17 14:20 IMPRESSION: 1. No acute cardiopulmonary pathology. 2. Pulmonary hyperinflation is suspicious for mild COPD. 3. Large left gastric hernia. Electronically Signed: Jovon Argueta MD at 14:58 EDT , Service support , Head CTA 07/03/17 16:26 IMPRESSION: There is non-visualization of the anterior communicating artery (ACOM). There is non-visualization of the right posterior communicating artery (PCOM). There is calcified plaque formation of the right cavernous carotid artery, without a cross-sectional luminal stenosis. There is calcified plaque formation of the left cavernous carotid artery, without a cross-sectional luminal stenosis. Electronically Signed: Franco Rao MD at 18:26 EDT , Service support , Neck CTA 07/03/17 16:26 IMPRESSION: There is non-visualization of the anterior communicating artery (ACOM). There is non-visualization of the right posterior communicating artery (PCOM). There is calcified plaque formation of the right cavernous carotid artery, without a cross-sectional luminal stenosis. There is calcified plaque formation of the left cavernous carotid artery, without a cross-sectional luminal stenosis. Electronically Signed: Franco Rao MD at 18:26 EDT , Service support , Brain MRI 07/04/17 09:00 IMPRESSION: No acute intracranial abnormality. Moderate chronic microvascular ischemic changes. Findings suggestive of NPH. Electronically Signed: Louie Breaux MD at 11:31 EDT Tel , Service support , Dr. Perry-Neurology Dr. Jolley- Surgery Operations: None Procedures: 2-D Echocardiogram Summary of Care Provided: Patient is a 72-year-old female admitted 07/03/2017 due to left facial droop, slurred speech, left arm weakness which resolved in 15-20 minutes. She has a past medical history of hypertension, hyperlipidemia, GERD, Zenker's diverticulum, CAD, marijuana use, occasional tobacco use. She has a remote history of detached left retina. 1. Suspected TIA-previously reported left facial droop, slurred speech and left arm weakness. These resolved in approximately 15-20 minutes. NIH 0. EKG sinus rhythm with first-degree AV block. No evidence of ischemia. CT without evidence of acute bleed or ischemic infarct. Chest x-ray shows possible mild COPD and hiatal hernia. Troponin negative ?4. Neurology consulted. 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 Moderate chronic microvascular ischemic changes. No acute intracranial abnormality. Echocardiogram showed an EF of 65%, pulmonary artery systolic pressure 38 mmHg. Recommend outpatient sleep study to be ordered by primary care physician. CTA of neck showed right internal carotid artery stenosis 35%, left internal coronary artery stenosis 62%. Carotid ultrasound showed right carotid less than 50% stenosis, left carotid greater than 70% stenosis. Dr. Jolley, surgery consulted who plans on left carotid enterectomy , 07/07/2017. She will hold Plavix 07/06/2017 prior to surgery. Continue statin. She will further discuss Plavix versus aspirin with Dr. Jolley following surgery. Patient will follow up with neurology as outpatient in 2-4 weeks. 2. Hypertension-stable, continue home regimen. 3. Hyperlipidemia-continue statin. 4. CAD-continue plavix, statin. 5. GERD- Continue PPI. Patient underwent EGD January [address] Carvalho which showed moderate hiatal hernia, mid esophageal diverticulum, Zenker's diverticulum. 6. Tobacco use/marijuana use-encouraged smoking cessation. 7. Obesity- Diet and lifestyle modifications encouraged. General: Alert, Oriented x3, Cooperative HEENT: Atraumatic, PERRLA, EOMI, Normocephalic Neck: Supple, No JVD, Negative Carotid Bruits Lungs: Clear to auscultation, Normal air movement Cardiovascular: Regular rate, Regular Rhythm, Normal S1, Normal S2, No murmurs Abdomen: Bowel Sounds Present, Soft, Non Tender, Non-Distended, Obese Extremities: No clubbing, No cyanosis, No edema, Capillary Refill Less than 3 Seconds Skin: No rashes, No breakdown Musculoskeletal: No Tenderness to Palpation of Joints or Extremities Neurological: Cranial nerves II-XII grossly intact, Neuro grossly intact Psych/Mental Status: Normal Affect, Appropriate Patient seen and examined prior to discharge. Physical assessment as noted above. Patient is stable for discharge home with the recommendations as noted above. This patient was seen by STEFAN Lizama under the supervision of Dr. Garcia. Discharge Diet: Low fat/ Low Cholesterol Discharge Activity: Return to Normal Activity Call your doctor if you observe: Shortness of breath, Dizziness, Fainting spells, Chest pain Home Medications: Medications to take at Discharge Atenolol [Tenormin] 25 mg PO DAILY 01/18/17 Cholecalciferol (VIT D3) [Vitamin D3] 2,000 unit PO DAILY 01/18/17 Cyanocobalamin (Vitamin B-12) [Vitamin B12] 1,000 mcg PO DAILY 01/18/17 Folic Acid 2 mg PO DAILY@0800 01/18/17 Losartan/Hydrochlorothiazide [Losartan-Hctz 100-25 mg Tab] 1 each PO DAILY 01/18/17 Multivitamins,Therapeutic [Multivitamin] 1 tablet PO DAILY 01/18/17 Omeprazole Magnesium [Prilosec Otc] 20 mg PO DAILY 01/18/17 Psyllium [Metamucil] 1 packet PO DAILY 01/18/17 Atorvastatin Calcium [Lipitor] 80 mg PO QHS #30 tab 07/05/17 Clopidogrel Bisulfate [Plavix] 75 mg PO DAILY #30 tab 07/05/17 Following Prescrptions Were Given to Patient: Atorvastatin Calcium [Lipitor] 80 mg PO QHS #30 tab Clopidogrel Bisulfate [Plavix] 75 mg PO DAILY #30 tab Primary Care Physician: Bright Gupta MD [Primary Care Provider] - Please follow up with your Primary Care Physician in: 1 Week Please Follow Up With: Malcolm Jolley MD - Left carotid surgery When: 07/07/17 Please Follow Up With: Mayco Perry MD When: 2-4 Weeks Please Follow Up With: Zipper Repairer - Eye doctor When: As previously scheduled, for left eye vision changes. Additional Instructions: You are scheduled to have surgery on the left carotid artery this , 07/07/[address] Jolley at [facility]. -You were prescribed plavix which thins the blood and is used to prevent stroke. You will need to HOLD this on 07/06/[address] Jolley will instruct you when to resume taking this following surgery. Instead of plavix, you can take an 81mg baby aspirin 07/06/17. -Recommend you discuss sleep study with your primary care physician who can order this test. Disposition: Home Minutes spent on discharge:: 35 Patient Condition:: Stable Medical Necessity - Tobacco Use Smoking Status: Current some day smoker Tobacco Use: Non-smoker Meaningful Use Info Meaningful Use Diagnoses (Choose all that apply): None applicable
--- NOTE | 2017-07-05 10:13 | CASEMGMT ---
This RN CM to room to speak with pt regarding HERNANDES form at this time. HERNANDES form explained, pt voices understanding and signs at this time. Pt provided copy of HERNANDES form and Medicare inpatient vs OBS booklet at this time. Original HERNANDES to chart at this time. Pt voices no further questions/concerns at this time. S[place]en RN CM
[2017-07-05] MEDS: hydroCHLOROthiazide 25 MG Tablet PO (10:17)
[2017-07-05] MEDS: Losartan Potassium 100 MG Tablet PO (10:17)
[2017-07-05] MEDS: Psyllium 1 PACKET PO (10:17)
[2017-07-05] MEDS: Atenolol 25 MG Tablet PO (10:18)
[2017-07-05] MEDS: Clopidogrel Bisulfate 75 MG Tablet PO (10:18)
[2017-07-05] MEDS: Cyanocobalamin 500 MCG Tablet 1000 MCG PO (10:19)
--- NOTE | 2017-07-05 10:24 | DS.PCM_ITS ---
Discharge Date and Diagnosis Date of Admission: 07/03/17 Date of Discharge: 07/05/17 - Primary Discharge Diagnosis 1. TIA 2. Left carotid stenosis, greater than 70% - Secondary Discharge Diagnosis Chronic Problems Hypertension (Chronic) Hyperlipemia (Chronic) Zenkers diverticulum (Chronic) GERD (gastroesophageal reflux disease) (Chronic) CAD (coronary artery disease) (Chronic) Marijuana use (Chronic) Obesity (BMI 30-39.9) (Chronic) Hospital Course and Treatment Imaging Results: Diagnostic Data Brain CT 07/03/17 14:[address]: 1[address] No [address] evidence of intracranial bleeding or acute ischemic infarct at this time. 2. Chronic white matter ischemic changes in both cerebral hemispheres. Electronically Signed: Jovon Argueta MD at 14:35 EDT , Service support , Chest X-Ray 07/03/17 14:20 IMPRESSION: 1. No acute cardiopulmonary pathology. 2. Pulmonary hyperinflation is suspicious for mild COPD. 3. Large left gastric hernia. Electronically Signed: Jovon Argueta MD at 14:58 EDT , Service support , Head CTA 07/03/17 16:26 IMPRESSION: There is non-visualization of the anterior communicating artery (ACOM). There is non-visualization of the right posterior communicating artery (PCOM). There is calcified plaque formation of the right cavernous carotid artery, without a cross-sectional luminal stenosis. There is calcified plaque formation of the left cavernous carotid artery, without a cross-sectional luminal stenosis. Electronically Signed: Franco Rao MD at 18:26 EDT , Service support , Neck CTA 07/03/17 16:26 IMPRESSION: There is non-visualization of the anterior communicating artery (ACOM). There is non-visualization of the right posterior communicating artery (PCOM). There is calcified plaque formation of the right cavernous carotid artery, without a cross-sectional luminal stenosis. There is calcified plaque formation of the left cavernous carotid artery, without a cross-sectional luminal stenosis. Electronically Signed: Franco Rao MD at 18:26 EDT , Service support , Brain MRI 07/04/17 09:00 IMPRESSION: No acute intracranial abnormality. Moderate chronic microvascular ischemic changes. Findings suggestive of NPH. Electronically Signed: Louie Breaux MD at 11:31 EDT Tel , Service support , Dr. Perry-Neurology Dr. Jolley- Surgery Operations: None Procedures: 2-D Echocardiogram Summary of Care Provided: Patient is a 72-year-old female admitted 07/03/2017 due to left facial droop, slurred speech, left arm weakness which resolved in 15-20 minutes. She has a past medical history of hypertension, hyperlipidemia, GERD, Zenker's diverticulum, CAD, marijuana use, occasional tobacco use. She has a remote history of detached left retina. 1. Suspected TIA-previously reported left facial droop, slurred speech and left arm weakness. These resolved in approximately 15-20 minutes. NIH 0. EKG sinus rhythm with first-degree AV block. No evidence of ischemia. CT without evidence of acute bleed or ischemic infarct. Chest x-ray shows possible mild COPD and hiatal hernia. Troponin negative ?4. Neurology consulted. 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 Moderate chronic microvascular ischemic changes. No acute intracranial abnormality. Echocardiogram showed an EF of 65%, pulmonary artery systolic pressure 38 mmHg. Recommend outpatient sleep study to be ordered by primary care physician. CTA of neck showed right internal carotid artery stenosis 35%, left internal coronary artery stenosis 62%. Carotid ultrasound showed right carotid less than 50% stenosis, left carotid greater than 70% stenosis. Dr. Jolley, surgery consulted who plans on left carotid enterectomy , 07/07/2017. She will hold Plavix 07/06/2017 prior to surgery. Continue statin. She will further discuss Plavix versus aspirin with Dr. Jolley following surgery. Patient will follow up with neurology as outpatient in 2-4 weeks. 2. Hypertension-stable, continue home regimen. 3. Hyperlipidemia-continue statin. 4. CAD-continue plavix, statin. 5. GERD- Continue PPI. Patient underwent EGD January [address] Carvalho which showed moderate hiatal hernia, mid esophageal diverticulum, Zenker's diverticulum. 6. Tobacco use/marijuana use-encouraged smoking cessation. 7. Obesity- Diet and lifestyle modifications encouraged. General: Alert, Oriented x3, Cooperative HEENT: Atraumatic, PERRLA, EOMI, Normocephalic Neck: Supple, No JVD, Negative Carotid Bruits Lungs: Clear to auscultation, Normal air movement Cardiovascular: Regular rate, Regular Rhythm, Normal S1, Normal S2, No murmurs Abdomen: Bowel Sounds Present, Soft, Non Tender, Non-Distended, Obese Extremities: No clubbing, No cyanosis, No edema, Capillary Refill Less than 3 Seconds Skin: No rashes, No breakdown Musculoskeletal: No Tenderness to Palpation of Joints or Extremities Neurological: Cranial nerves II-XII grossly intact, Neuro grossly intact Psych/Mental Status: Normal Affect, Appropriate Patient seen and examined prior to discharge. Physical assessment as noted above. Patient is stable for discharge home with the recommendations as noted above. This patient was seen by STEFAN Lizama under the supervision of Dr. Garcia. Discharge Diet: Low fat/ Low Cholesterol Discharge Activity: Return to Normal Activity Call your doctor if you observe: Shortness of breath, Dizziness, Fainting spells , Chest pain Home Medications: Medications to take at Discharge Atenolol [Tenormin] 25 mg PO DAILY 01/18/17 Cholecalciferol (VIT D3) [Vitamin D3] 2,000 unit PO DAILY 01/18/17 Cyanocobalamin (Vitamin B-12) [Vitamin B12] 1,000 mcg PO DAILY 01/18/17 Folic Acid 2 mg PO DAILY@0800 01/18/17 Losartan/Hydrochlorothiazide [Losartan-Hctz 100-25 mg Tab] 1 each PO DAILY 01/18 Multivitamins,Therapeutic [Multivitamin] 1 tablet PO DAILY 01/18/17 Omeprazole Magnesium [Prilosec Otc] 20 mg PO DAILY 01/18/17 Psyllium [Metamucil] 1 packet PO DAILY 01/18/17 Atorvastatin Calcium [Lipitor] 80 mg PO QHS #30 tab 07/05/17 Clopidogrel Bisulfate [Plavix] 75 mg PO DAILY #30 tab 07/05/17 Following Prescrptions Were Given to Patient: Atorvastatin Calcium [Lipitor] 80 mg PO QHS #30 tab Clopidogrel Bisulfate [Plavix] 75 mg PO DAILY #30 tab Primary Care Physician: Bright Gupta MD [Primary Care Provider] - Please follow up with your Primary Care Physician in: 1 Week Please Follow Up With: Malcolm Jolley MD - Left carotid surgery When: 07/07/17 Please Follow Up With: Mayco Perry MD When: 2-4 Weeks Please Follow Up With: Field Traffic Investigator - Eye doctor When: As previously scheduled, for left eye vision changes. Additional Instructions: You are scheduled to have surgery on the left carotid artery this , 07/[address] Jolley at [facility]. -You were prescribed plavix which thins the blood and is used to prevent stroke. You will need to HOLD this on prior to surgery. Dr. Jolley will instruct you when to resume taking this following surgery. Instead of plavix, you can take an 81mg baby aspirin . -Recommend you discuss sleep study with your primary care physician who can order this test. Disposition: Home Minutes spent on discharge:: 35 Patient Condition:: Stable Medical Necessity - Tobacco Use Smoking Status: Current some day smoker Tobacco Use: Non-smoker Meaningful Use Info Meaningful Use Diagnoses (Choose all that apply): None applicable
== END 2017-07-05 09:59 | disposition home or self-care (01) ==
LOC: ED 15:25 → PCU 15:49
PROVIDERS: Nurse Practitioner Family; Admitting Provider Internal Medicine; Emergency Provider Emergency Medicine; Family Provider Family Medicine; PCP Family Medicine; Visit Provider Internal Medicine
DX: I69.834 Monoplegia of upper limb following other cerebrovascular disease affecting left non-dominant side (principal); I25.10 Atherosclerotic heart disease of native coronary artery without angina pectoris; I69.892 Facial weakness following other cerebrovascular disease; I69.823 Fluency disorder following other cerebrovascular disease; I10 Essential (primary) hypertension; I65.22 Occlusion and stenosis of left carotid artery; E78.5 Hyperlipidemia, unspecified; K21.9 Gastro-esophageal reflux disease without esophagitis; K22.5 Diverticulum of esophagus, acquired; K44.9 Diaphragmatic hernia without obstruction or gangrene; E66.9 Obesity, unspecified; F17.210 Nicotine dependence, cigarettes, uncomplicated; I44.0 Atrioventricular block, first degree; H33.22 Serous retinal detachment, left eye; Z68.38 Body mass index [BMI] 38.0-38.9, adult; Z71.3 Dietary counseling and surveillance; Z79.899 Other long term (current) drug therapy; Z79.82 Long term (current) use of aspirin
CPT/HCPCS: 36415; 70450; 70496; 70498; 70551; 71045; 80048; 80061; 82962; 83036; 83735; 84443; 84484; 85025; 85610; 85730; 92523; 93005; 93306; 93880; 96360; 96361; 97162; 97165; 99218; 99285; J7030; J7040; Q9957; Q9967; A4216; C8929; G0378

== ENCOUNTER 2017-07-07 10:33 | Inpatient (IN) | payer MEDICARE, OTHER, SELFPAY ==
[2017-07-07] VITALS (21 sets, daily range): BP systolic 134–157; BP diastolic 67–91; PULSE 68–88; RESP 16–18; TEMP 36.2–37.4; O2SAT 93–100; BMI 37.8
--- NOTE | 2017-07-07 13:00 | PLAQ_PTH ---
PATIENT: GE ROLAND LOC: MS3 U#:[id number] AGE/SX: 72/F ROOM: MS309 RE07/07/[address]: Dr. Malcolm Jolley MD : 1945 BED: 1 DIS: 07/08/2017 SPEC #: [id number] RECD: 07/08/17 08:11 STATUS: SHERMAN NABEEL #: [id number] IGNACIO: 07/07/17 13:[address]: Malcolm Jolley DEPT: SURGICAL PATHOLOGY RECD BY: Osiris Arroyo ENTERED: 07/08/17 09:04 SP TYPE: PLAQUE OTHR DR: Dr. Bright Gupta MD Tissues: PLAQUE Procedures: Decalcification bone/plaque Surgery Specimen Level III HEADER OPERATION: Carotid endarterectomy with patch angioplasty PRE-OP DIAGNOSIS: Carotid stenosis TISSUE SUBMITTED: Plaque MICROSCOPIC DIAGNOSIS Carotid artery plaque, endarterectomy: Calcified atheromatous plaque consistent with severe stenosis. AM:han 07/13/17 GROSS DESCRIPTION Received in fixative is one container labeled with the patient's name and designated plaque. The specimen consists of a previously opened tubular piece of ndiaye-yellow, indurated tissue measuring 3 cm in length and up to 0.9 cm in diameter. The lumen is almost completely obliterated. Focally, the specimen cuts with gritty sensation. The entire specimen is submitted in one cassette after decalcification. / SJ:han 07/08/17 TC:5 CPT: 14545, 54613
--- NOTE | 2017-07-07 13:06 | PCM.DC.GS ---
Discharge Diet: Light diet - advance as tolerated - if you have questions about your diet instructions, please talk to you doctor. Discharge Activity: May Not Drive - for 1 week or while taking narcotic pain medicine. May shower in (days): 4 Lifting Restrictions: 10 pounds Call your doctor if your incision/area has: Continuous Slow Oozing, Sudden Increased Bleeding, Increased Pain/ Swelling, Increased Redness, Foul Smelling Discharge Call your doctor if you observe: Fever of 101 or Higher Suture Line Care: Avoid Pulling/Pushing, Avoid Pinching/Bending Additional Dressing/Incision Instructions:: Please keep the incision clean and dry. Do not shower until Tuesday. You may apply dry gauze to help protect the incision or you may leave it open to air. You may remove the Steri-Strips in 1 week Additional Instructions: You do not need to take your plavix (clopidogrel) You do need to take a daily ASA please 81mg Allergies/Adverse Reactions: Allergies quinapril [From Accupril] Adverse Reaction (Verified 07/06/17 13:07) Other Medications to take at Discharge Atenolol [Tenormin] 25 mg PO DAILY 01/18/17 Cholecalciferol (VIT D3) [Vitamin D3] 2,000 unit PO DAILY 01/18/17 Cyanocobalamin (Vitamin B-12) [Vitamin B12] 1,000 mcg PO DAILY 01/18/17 Folic Acid 2 mg PO DAILY@0800 01/18/17 Losartan/Hydrochlorothiazide [Losartan-Hctz 100-25 mg Tab] 1 each PO DAILY 01/18/17 Multivitamins,Therapeutic [Multivitamin] 1 tablet PO DAILY 01/18/17 Omeprazole Magnesium [Prilosec Otc] 20 mg PO DAILY 01/18/17 Psyllium [Metamucil] 1 packet PO DAILY 01/18/17 Aspirin E.C. [Ecotrin] 81 mg PO QHS 07/06/17 Atorvastatin Calcium [Lipitor] 80 mg PO QHS 07/06/17 Hydrocodone Bitart/Apap 5-325 [Oakridge 5MG-325MG] 1 tablet PO Q6H PRN PRN 3 Days #8 tablet 07/07/17 The following prescriptions were given: Hydrocodone Bitart/Apap 5-325 [[place]ridge 5MG-325MG] 1 tablet PO Q6H PRN PRN 3 Days #8 tablet PRN Reason: Pain Primary Care Physician: Bright Gupta MD [Primary Care Provider] - Please Follow Up With: Malcolm Jolley MD - [phone] When: Call to make an appointment to be seen in about 10 days.
[2017-07-07] MEDS: Cefazolin 2 GM in 0.9% Normal Saline 100 ML IV (13:11)
--- NOTE | 2017-07-07 13:13 | OP.PCM_ITS ---
Problem List (1) Carotid stenosis, symptomatic w/o infarct Status: Acute Qualifiers: Laterality: left Qualified Code(s): I65.22 - Occlusion and stenosis of left carotid artery Report of Operation Date of Procedure: 07/07/17 Pre-Operative Diagnosis: Left hemispheric TIA with greater than 70% stenosis left proximal internal carotid Post-Operative Diagnosis: Same Surgery/Procedure Performed:: Right radial arterial line placement. Left carotid endarterectomy with bovine patch angioplasty Description of Surgical Findings:: Timeout and informed consent was obtained. 72-year-old female at the bedside Nikhil test performed demonstrating adequate ulnar flow. The right wrist was gently extended. It was prepped with Betadine. Using ultrasound 1% lidocaine was instilled. A 20-gauge aero Angiocath kit was advanced into the artery. Seldinger wire technique was used to advance the catheter. The catheter was secured skin with interrupted 3-0 silk. It was connected to pressure tubing. OpSite dressing applied. Neil wrap applied. She tolerated procedure well without apparent complication. The hand was viable to completion. Good waveform was obtained. The patient was subsequently taken to the operating room for planned definitive left carotid endarterectomy. The patient was subsequently taken to the operating room. She was placed upon the table. She underwent general endotracheal intubation anesthesia. Colonoscope was utilized. She received 2 g of Ancef intravenously. The left neck was sterilely prepped and draped. An oblique incision was made along the anterior border the sternocleidomastoid. Sharp dissection was carried down through the substance tissue. Hemostasis was obtained throughout using electrocautery hemoclips and 4-0 Vicryl ligatures. Dissection was performed directly down upon the common carotid. Dissection was performed cephalad. The ansa had to be transected to allow for exposure. Circumferential control was obtained in the internal carotid and then it was dissected free for several centimeters because of the cephalad extent of the disease. A Dacron tape and Jama tourniquet was applied. A Dacron tape and a Mena fashion was placed in the common carotid and a vessel loop around the external carotid. The patient received 9000 units of heparin. After adequate circling time a Gomez clamp was placed on the internal carotid peripheral vascular clamps on the common carotid and a peripheral vascular clamp on the external carotid and 11 blade was used to make an arteriotomy. This was extended with Mena scissors at the proximal internal carotid due to the very extensive amount of calcific plaque I could not find true lumen. I then used a 15 blade to incise the carotid cephalad to that and was then able to use Mena scissors to open the vessel in a longitudinal fashion. I then placed a USCI style shunt cephalad and proximally. Throughout the procedure anesthesia did report there is about a 15 % decline on the left with the shunt in position and functioning correctly. A endarterectomy was performed the layer of the external elastic lamina. The plaque was sharply transected proximally and then it was carefully feathered distally. The internal carotid distal feathering was rather challenging I had to extend the arteriotomy because of further extensive plaque. Finally upon further dissection was able to get a smooth plane. I did place a posterior tacking suture of 7-0 Prolene. I performed an inversion enterectomy of the external carotid. Further debris was carefully removed. Then a 8 cm x 0.8 cm piece of bovine pericardium was used as a patch. I shape is deformed. I performed a patch angioplasty with a running 6-0 Prolene. Prior to completion the vessel was copiously irrigated. The shunt was removed. There was slow but adequate retrograde flow from the internal carotid and excellent inflow from the common carotid and adequate retrograde flow from the external carotid. The patch angioplasty was completed. Initial flow was instituted from the external carotid common carotid find the internal carotid. A couple repair sutures of 7- 0 Prolene were utilized. Complete hemostasis was intact. The patient then received 20 mg of protamine. Surgicel was briefly used to assist with hemostasis and Surgicel was hemostasis was nicely intact. It is of note that upon removal of the shunt and reestablishment of flow the patient resumed her baseline on the left. The wound was now closed by approximating the platysma with a running 3-0 Vicryl. The skin edges were approximated running septic or 5-0 Vicryl. The lázaro-incisional areas anesthetized with 10 cc of 0.5 cM. Steri-Strips Telfa tape dressings applied. Sponge instrument and needle counts were reported to the surgeon be correct. Blood loss was 200 cc. She appeared awake neurologically intact. Without apparent complication. Specimens plaque. Drains none. Blood loss 200 cc. Malcolm Jolley M.D., F.A.C.S. Type of Anesthesia:: General Anesthesiologist: Melanie Merlos
[2017-07-07] MEDS: Bupivacaine Mpf 0.5% 30 ML VIAL (15:13)
[2017-07-07] MEDS: Cefazolin 1 GM/50 ML BAG IV (21:20)
[2017-07-07] MEDS: Atorvastatin Calcium 80 MG Tablet PO (21:21)
[2017-07-07] MEDS: Aspirin E.C. 81 MG Tablet PO (21:21)
[2017-07-07] MEDS: HYDROcodone Bitartrate/Apap 5/325 Tablet PO (23:56)
[2017-07-08] MEDS: Cefazolin 1 GM/50 ML BAG IV (04:04)
[2017-07-08 04:06] VITALS: BP 146/99; PULSE 71; RESP 18; TEMP 36.7; O2SAT 95
--- NOTE | 2017-07-08 05:24 | PCM.PN.SRG ---
Patient Problems: Active and Suspected Problems Carotid stenosis, symptomatic w/o infarct (Acute) Subjective: Pt without complaint, feels well - Physical Exam HEENT: - - supple, very clean Lungs: Clear to auscultation Vital Signs Temp Pulse Resp BP Pulse Ox 98.1 F 71 18 146/99 H 95 07/08/17 04:06 07/08/17 04:06 07/08/17 04:06 07/08/17 04:06 07/08/17 04:06 Oxygen Delivery Method Room Air Weight: 187 lb 6.287 oz Body Mass Index (BMI) 37.8 Intake and Output for Last 24 Hours 07/06/17 07/07/17 07/08/17 23:59 23:59 23:59 Intake Total 1900 / 1900 680 / 680 Output Total 200 / 200 Balance 1900 / 1900 480 / 480 Medical Necessity - Tobacco Use Smoking Status: Never smoker Assessment/Plan Active and Suspected Problems Carotid stenosis, symptomatic w/o infarct (Acute) Mild HTN, will treat and resume routine meds Discharge
[2017-07-08 06:11] VITALS: BP 144/84; PULSE 76
[2017-07-08] MEDS: hydrALAZINE 20 MG/ML Vial 5 MG IV (06:11)
[2017-07-08] MEDS: Lactated Ringers 1,000 ML 30 ML IV (06:21)
[2017-07-08] MEDS: HYDROcodone Bitartrate/Apap 5/325 Tablet PO (07:48)
[2017-07-08] MEDS: Atenolol 25 MG Tablet PO (07:49)
[2017-07-08] MEDS: hydroCHLOROthiazide 25 MG Tablet PO (07:49)
[2017-07-08] MEDS: Losartan Potassium 100 MG Tablet PO (07:49)
[2017-07-08] MEDS: Pantoprazole Sodium 20 MG Tablet PO (07:51)
[2017-07-08 07:52] VITALS: BP 130/77; PULSE 76; RESP 16; TEMP 36.6; O2SAT 94
== END 2017-07-08 09:44 | disposition home or self-care (01) | DRG 38 ==
LOC: ACINP 10:39 → MS3 15:53
PROVIDERS: Admitting Provider Surgery; Family Provider Family Medicine; PCP Family Medicine; Visit Provider Surgery
PROC: 03CL0ZZ Extirpation of Matter from Left Internal Carotid Artery, Open Approach (ICD-10-PCS; CPT 35301; principal; 2017-07-07 12:40)
DX: I65.22 Occlusion and stenosis of left carotid artery (principal); H33.22 Serous retinal detachment, left eye; I69.834 Monoplegia of upper limb following other cerebrovascular disease affecting left non-dominant side; I69.823 Fluency disorder following other cerebrovascular disease; E66.9 Obesity, unspecified; I10 Essential (primary) hypertension; E78.5 Hyperlipidemia, unspecified; K21.9 Gastro-esophageal reflux disease without esophagitis; I25.10 Atherosclerotic heart disease of native coronary artery without angina pectoris; Z79.82 Long term (current) use of aspirin; Z79.899 Other long term (current) drug therapy; K22.5 Diverticulum of esophagus, acquired; Z68.38 Body mass index [BMI] 38.0-38.9, adult; I69.892 Facial weakness following other cerebrovascular disease; K44.9 Diaphragmatic hernia without obstruction or gangrene; F17.210 Nicotine dependence, cigarettes, uncomplicated; I44.0 Atrioventricular block, first degree; Z71.3 Dietary counseling and surveillance
CPT/HCPCS: 36415; 70450; 70496; 70498; 70551; 71045; 80048; 80061; 82962; 83036; 83735; 84443; 84484; 85025; 85610; 85730; 88304; 88311; 92523; 93005; 93306; 93880; 96360; 96361; 97162; 97165; 99218; 99285; J7030; J7040; J7120; Q9957; Q9967; A4216; C8929; G0378

== ENCOUNTER 2017-07-08 21:04 | Inpatient (IN) | payer MEDICARE, OTHER, SELFPAY ==
[2017-07-08 21:07] VITALS: BP 175/133; PULSE 77; RESP 16; TEMP 36.9; O2SAT 99; BMI 38.1
[2017-07-08 21:32] VITALS: BP 167/87; PULSE 74; RESP 15; O2SAT 96
--- NOTE | 2017-07-08 21:52 | CT_ITS ---
CTA Head and neck WO/W Contrast INDICATION: LIGHT HEADED, DIZZY, LEFT CAROTID SURG ON 07/07, ARRIVES TODAY WITH N/V AND INTERMITTENT VISION CHANGES COMPARISON: July 03, 2017 TECHNIQUE: Noncontrast axial CT of the brain followed by high resolution axial CT imaging of the head and neck during intravenous contrast administration, CTA protocol. Multiplanar and MIP reformatted images. 100 mL of Isovue-370 were given. Radiation dose optimization technique and NASCET criteria were applied. FINDINGS: CT brain: Ventricular system is mildly prominent, stable. Cortical sulci and basal cisterns are well seen. Patchy bilateral chronic ischemic microvascular white matter changes are again noted. CTA neck: Mild arteriosclerotic calcifications are noted at the aortic arch and there is normal origin of the great vessels from the arch. The common carotid arteries are normal in origin and symmetric in caliber. Mild arteriosclerotic calcifications are noted at the right bifurcation. There is no significant arteriosclerotic disease at the left bifurcation, and surgical clips are seen. The previously noted high-grade stenosis has resolved. There is symmetric caliber of the internal carotid arteries to the level of the skull base. Posterior circulation demonstrates mild dominance of the right vertebral arteries, otherwise normal appearance of the vertebral arteries. The left vertebral artery terminates as a posterior-inferior cerebellar artery. The right vertebral artery continues as the basilar artery. CTA head: Mild arteriosclerotic plaque formation is noted at the cavernous carotid arteries without significant luminal narrowing. There is symmetric supply to the anterior and middle cerebral arteries and their branching vessels. Posterior circulation demonstrates a small caliber nasal artery which gives rise to the right posterior cerebral artery. The left posterior cerebral artery is in origin. Findings are stable compared to July 03. Opacification of the paranasal sinuses is again noted. CT/CTA Neck W/WO Contrast IMPRESSION: Noncontrast CT brain: Stable chronic ischemic microvascular white matter changes. No evidence of intracranial hemorrhage. CTA neck: Left endarterectomy with removal of the arteriosclerotic plaque at the origin of the internal carotid artery and no evidence of residual luminal narrowing. Mild arteriosclerotic disease at the right bifurcation, unchanged, without significant luminal narrowing at the origin of the right internal carotid artery. CT angiogram head: Small left vertebral artery terminates as a posterior-inferior cerebellar artery and right vertebral artery is small in caliber distally, resulting in a small caliber basilar artery. Basilar artery gives rise to the right posterior cerebral artery. Left posterior cerebral artery is in origin. No evidence of dissection, aneurysm formation, or large vessel occlusion. at 2321 Reported and signed by: Gertrude Catalan MD Electronically Signed: Gertrude Catalan MD at 22:20 EDT Tel , Service support ,
--- NOTE | 2017-07-08 21:52 | CT_ITS ---
CTA Head and neck WO/W Contrast INDICATION: LIGHT HEADED, DIZZY, LEFT CAROTID SURG ON 07/07, ARRIVES TODAY WITH N/V AND INTERMITTENT VISION CHANGES COMPARISON: July 03, 2017 TECHNIQUE: Noncontrast axial CT of the brain followed by high resolution axial CT imaging of the head and neck during intravenous contrast administration, CTA protocol. Multiplanar and MIP reformatted images. 100 mL of Isovue-370 were given. Radiation dose optimization technique and NASCET criteria were applied. FINDINGS: CT brain: Ventricular system is mildly prominent, stable. Cortical sulci and basal cisterns are well seen. Patchy bilateral chronic ischemic microvascular white matter changes are again noted. CTA neck: Mild arteriosclerotic calcifications are noted at the aortic arch and there is normal origin of the great vessels from the arch. The common carotid arteries are normal in origin and symmetric in caliber. Mild arteriosclerotic calcifications are noted at the right bifurcation. There is no significant arteriosclerotic disease at the left bifurcation, and surgical clips are seen. The previously noted high-grade stenosis has resolved. There is symmetric caliber of the internal carotid arteries to the level of the skull base. Posterior circulation demonstrates mild dominance of the right vertebral arteries, otherwise normal appearance of the vertebral arteries. The left vertebral artery terminates as a posterior-inferior cerebellar artery. The right vertebral artery continues as the basilar artery. CTA head: Mild arteriosclerotic plaque formation is noted at the cavernous carotid arteries without significant luminal narrowing. There is symmetric supply to the anterior and middle cerebral arteries and their branching vessels. Posterior circulation demonstrates a small caliber nasal artery which gives rise to the right posterior cerebral artery. The left posterior cerebral artery is in origin. Findings are stable compared to July 03. Opacification of the paranasal sinuses is again noted. CT/CTA Head W/WO Contrast IMPRESSION: Noncontrast CT brain: Stable chronic ischemic microvascular white matter changes. No evidence of intracranial hemorrhage. CTA neck: Left endarterectomy with removal of the arteriosclerotic plaque at the origin of the internal carotid artery and no evidence of residual luminal narrowing. Mild arteriosclerotic disease at the right bifurcation, unchanged, without significant luminal narrowing at the origin of the right internal carotid artery. CT angiogram head: Small left vertebral artery terminates as a posterior-inferior cerebellar artery and right vertebral artery is small in caliber distally, resulting in a small caliber basilar artery. Basilar artery gives rise to the right posterior cerebral artery. Left posterior cerebral artery is in origin. No evidence of dissection, aneurysm formation, or large vessel occlusion. at 2320 Reported and signed by: Gertrude Catalan MD Electronically Signed: Gertrude Catalan MD at 22:19 EDT Tel , Service support ,
[2017-07-08 22:09] LABS: Absolute Lymphocyte Count 1.06 X10^3/ul (0.83-4.51); Absolute Neutrophil Count 7.1 X10^3/uL (2.0-7.7); Basophil# 0.02 X10^3/uL; Basophil% 0.2 % (0-1); Eosinophil# 0.17 X10^3/uL; Eosinophils% 1.9 % (0-5); Hematocrit 33.2 % (37-47); Hemoglobin 11.5 g/dl (12.0-15.0); Lymphocyte # 1.06 X10^3/ul (4.0); Lymphocyte % 11.9 % (19-41); Mean Corp Hgb Conc 34.6 g/gl (32-36); Mean Corpuscular Hgb 30.1 pg (27.0-32.0); Mean Corpuscular Volume 86.9 fL (81-99); Mean Platelet Vol. 9.5 fl (6.2-12.0); Monocyte# 0.62 X10^3/uL; Monocyte% 6.9 % (0-10); Neutrophil # 7.06 X10^3/uL (2.7-7.7); POSITIVE DIFFERENTIAL NO; Platelet Count 373 K/mm3 (150-450); RBC Distribution Width CV 13.9 % (11.6-14.6); RBC Distribution Width SD 44.3 fl (35.1-43.9); Red Blood Count 3.82 M/mm3 (4.2-5.4); White Blood Count 8.9 K/mm3 (4.4-11.0)
[2017-07-08 22:10] LABS: POSITIVE COUNT NO; POSITIVE MORPHOLOGY NO
[2017-07-08 22:13] LABS: Prothrombin Time (Protime)PT. 13.3 SECONDS (11.7-14.9)
[2017-07-08 22:20] LABS: Anion Gap 6 (5-15); BUN 6 mg/dL (7-18); BUN/Creat Ratio 10.4 RATIO (10-20); Calcium,Total 8.6 mg/dL (8.5-10.1); Chloride 89 mmol/L (98-107); Creatinine, Serum 0.58 mg/dL (0.55-1.02); EST Glomerular Filtration Rate 110 mL/min (>60); Est Glom Filt Rate - Afr Amer 133 mL/min (>60); Estimated Creatinine Clearance 70.85 ml/min; Glucose 121 mg/dL (74-106); Potassium 3.1 mmol/L (3.5-5.1); Sodium Level 122 mmol/L (136-145)
[2017-07-08 23:05] VITALS: BP 177/100; PULSE 87; O2SAT 96
[2017-07-09] VITALS (16 sets, daily range): BP systolic 128–171; BP diastolic 76–96; PULSE 69–95; RESP 13–17; TEMP 36.7–37.4; O2SAT 93–100; BMI 37.8
[2017-07-09] MEDS: 0.9% Normal Saline 1,000 ML 150 ML IV (00:04)
--- NOTE | 2017-07-09 00:37 | ED.VISSUMM ---
- ER Visit Summary Date of Service: 07/09/17 Chief Complaint: Dizziness, nausea vomiting and visual changes History of Present Illness: The patient is a 72 F presenting for evaluation secondary to dizziness nausea vomiting visual changes. Patient was recently admitted to the hospital secondary to TIA symptoms were she was having left-sided visual field changes. She was evaluated was found to have critical stenosis of her carotid arteries and received a left carotid endarterectomy yesterday. After the patient's discharge from the hospital she states that she has been having the same issues with the changes in her vision on the left, as well as having dizziness that she describes as a vertiginous type feeling with nausea and vomiting. Patient called her general surgeon who asked her take her blood pressure was noted to be elevated in the 160s and she was recommended to come to the emergency department. Patient denies any numbness or weakness or speech difficulty associated with this. Review of systems otherwise negative. Physical Examination: Vital signs notable blood pressure 167/87. Well-nourished female no acute distress. Head normal cephalic atraumatic PRL, EOMI visual valdez are normal to confrontation. Moist mucous membranes. No JVD noted. Patient's incision is clean dry and intact no evidence of bruit or thrill. Heart regular rate and rhythm lungs clear abdomen soft nontender extremities nontender nonedematous skin normal color no rash patient's NIH stroke scale is 0. 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 Patient's CBC unremarkable chemistry shows new hyponatremia 122. Emergency Department Course and Treatment: Patient presented secondary to symptoms following her carotid endarterectomy. Patient's NIH was negative. CT angiogram shows no evidence of acute changes. Blood work ended up showing the patient being hyponatremic significantly since her admission, she was normal at 136 on 318. I do believe the patient requires admission for this she was started on normal saline replacement and was admitted under the hospitalist Disposition: Admission Impression: 1. Hyponatremia This note was generated with [employer] software. It may contain incorrect words, spelling, and punctuation that were not noted in review of the chart prior to signing ED Disposition - Plan for ED Patient: Chief Complaint: Nausea/Vomiting Referrals: Bright Gupta MD [Primary Care Provider] -
--- NOTE | 2017-07-09 00:44 | PCM.HP.STD ---
Problem List (1) TIA (transient ischemic attack) Status: Acute (2) Hyponatremia Status: Acute (3) Hypokalemia Status: Acute (4) Carotid stenosis, symptomatic w/o infarct Status: Chronic Qualifiers: Laterality: left (5) Hypertension Status: Chronic Qualifiers: Hypertension type: essential hypertension Qualified Code(s): I10 - Essential (primary) hypertension (6) Hyperlipemia Status: Chronic Qualifiers: Hyperlipidemia type: unspecified Qualified Code(s): E78.5 - Hyperlipidemia, unspecified (7) [place] diverticulum Status: Chronic (8) GERD (gastroesophageal reflux disease) Status: Chronic Qualifiers: Esophagitis presence: esophagitis presence not specified Qualified Code(s): K21.9 - Gastro-esophageal reflux disease without esophagitis (9) CAD (coronary artery disease) Status: Chronic Qualifiers: Coronary Disease-Associated Artery/Lesion type: [place] artery [place] vs. transplanted heart: [place] heart Associated angina: without angina Qualified Code(s): I25.10 - Atherosclerotic heart disease of [place] coronary artery without angina pectoris (10) Obesity (BMI 30-39.9) Status: Chronic History of Present Illness Date of Admission: 07/08/17 Chief Complaint: visual changes The patient is a 72 year old F patient was experiencing some visual changes on the patient was seeing a glob on her left visual field that progressed over to her right. This is somewhat different than the visual changes that she had experienced on the where patient was having some zigzags . Symptoms are resolved but with patient's recent hospitalization and the fact that patient was just discharged earlier on the after having a left carotid endarterectomy patient presented again to the emergency room. The emergency room doctor spoke with Dr. Jolley who advised for the patient to have a CT angiogram. CT angiogram showed no acute process and no dissection. It was noted, however the patient's sodium was down to 122, whereas on the , it was 136. Patient states that she has not been eating much but has been drinking a lot of fluids during this time. Patient does take hydrochlorothiazide which she has been on for some time. [] Past Medical History Past Medical History (Chronic Problems): Chronic Problems Carotid stenosis, symptomatic w/o infarct (Chronic) Hypertension (Chronic) Hyperlipemia (Chronic) [place] diverticulum (Chronic) GERD (gastroesophageal reflux disease) (Chronic) CAD (coronary artery disease) (Chronic) Marijuana use (Chronic) Obesity (BMI 30-39.9) (Chronic) Allergies quinapril [From Accupril] Adverse Reaction (Verified 07/08/17 21:08) Other Home Medications: Ambulatory Orders Medication Instructions Recorded Atenolol [Tenormin] 25 mg PO DAILY 01/18/17 Cholecalciferol (VIT D3) [Vitamin 2,000 unit PO DAILY 01/18/17 D3] Cyanocobalamin (Vitamin B-12) 1,000 mcg PO DAILY 01/18/17 [Vitamin B12] Folic Acid 2 mg PO DAILY@0800 01/18/17 Losartan/Hydrochlorothiazide 1 each PO DAILY 01/18/17 [Losartan-Hctz 100-25 mg Tab] Multivitamins,Therapeutic 1 tablet PO DAILY 01/18/17 [Multivitamin] Omeprazole Magnesium [Prilosec Otc] 20 mg PO DAILY 01/18/17 Psyllium [Metamucil] 1 packet PO DAILY 01/18/17 Aspirin E.C. [Ecotrin] 81 mg PO QHS 07/06/17 Atorvastatin Calcium [Lipitor] 80 mg PO QHS 07/06/17 Hydrocodone Bitart/Apap 5-325 1 tablet PO Q6H PRN PRN 3 Days #8 07/07/17 [[place] 5MG-325MG] tablet Surgical History: - - Tubal ligation, lymph node removal left neck due to necrotic lymph node. Left carotid endarterectomy on July 07, 2017. Psychiatric History: No pertinent psych hx OFFICE ASST History: No pertinent OFFICE ASST history Lives: Spouse/ Significant Other Smoking Status: Never smoker Tobacco Use: Non-smoker Alcohol: None Drugs: None - *Family History Maternal History Items: Hypertension Paternal History Items: Cancer - Colon Review of Systems Constitutional: Reports: Weakness. Denies: Anorexia, Chills, Fever Eyes: Reports: Vision Change. Denies: Blurred vision, Double vision HEENT: Denies: Head Aches, Sinus Congestion, Sinus Drainage Cardiovascular: Denies: Chest Pain, Palpitations Respiratory: Denies: Cough, Shortness of breath at rest, Sputum production Gastrointestinal: Denies: Abdominal Pain, Nausea, Vomiting Genitourinary: Denies: Dysuria Musculoskeletal: Denies: Joint Pain, Joint Tenderness Skin: Denies: Rash, Wounds Neurological: Denies: Numbness, Tingling, Focal weakness Psychiatric: Denies: Anxiety, Depression Hematologic/ Lymphatic: Denies: Easy Bruising, Easy Bleeding, Hx of blood clot VTE Information - Inpt Only VTE Present on Admission: No VTE Pharm Prophylaxis ordered?: Yes Patient Problems: Active and Suspected Problems TIA (transient ischemic attack) (Acute) Hyponatremia (Acute) Hypokalemia (Acute) - Physical Exam General: Alert, Cooperative, No apparent distress, Well developed, Well nourished HEENT: Atraumatic, PERRLA, EOMI, Normocephalic Oral: Moist Mucosa, No Gingival or Mucosal Lesions/ Ulcerations Neck: No Nodes, Thyroid Normal Size and Texture, - - Left carotid endarterectomy incision well approximated with Steri-Strips. No discharge nor any bleeding noted. Lungs: Clear to auscultation, Normal air movement, No rhonchi, No wheeze Cardiovascular: Regular rate, Regular Rhythm, Normal S1, Normal S2, No murmurs Abdomen: Bowel Sounds Present, Soft, Non Tender, Non-Distended, No Hepato-splenomegaly, Passing Flatus Extremities: No clubbing, No cyanosis, No edema Skin: No rashes, No breakdown, - - Numerous tattoos throughout Musculoskeletal: No Tenderness to Palpation of Joints or Extremities, No Muscle Wasting Neurological: Cranial nerves II-XII grossly intact, Deep Tendon Reflexes 2+/4 and Symmetrical, Neuro grossly intact, Motor Exam 5/5 strength throughout Psych/Mental Status: Normal Affect, Appropriate Vital Signs Temp Pulse Resp BP Pulse Ox 36.9 C 80 17 171/96 H 96 07/08/17 21:07 07/09/17 00:20 07/09/17 00:20 07/09/17 00:20 07/08/17 23:05 Oxygen Delivery Method Room Air Weight: 85.729 kg Body Mass Index (BMI) 38.1 Laboratory Tests Past 24 Hrs 07/08/17 07/08/17 07/08/17 21:27 21:27 21:27 WBC 8.9 RBC 3.82 L Hgb 11.5 L Hct 33.2 L MCV 86.9 MCH 30.1 MCHC 34.6 RDW 13.9 RDW Differential 44.3 H Plt Count 373 MPV 9.5 Immature Gran % (Auto) 0.100 Neut % (Auto) 79.0 H Lymph % (Auto) 11.9 L [place] % (Auto) 6.9 Eos % (Auto) 1.9 Baso % (Auto) 0.2 Absolute Neuts (auto) 7.1 Absolute Lymphs (auto) 1.06 Total Counted Not Reportable PT 13.3 INR 1.0 APTT 32.0 Sodium 122 L Potassium 3.1 L Chloride 89 L Carbon Dioxide 27.0 Anion Gap 6 BUN 6 L Creatinine 0.58 Estim Creat Clear Calc 70.85 Est GFR (MDRD) Af Amer 133 Est GFR (MDRD) Non-Af 110 BUN/Creatinine Ratio 10.4 Glucose 121 H Calcium 8.6 Clinical Impression(s) from Imaging Studies Head CTA 07/08/17 21:52 IMPRESSION: Noncontrast CT brain: Stable chronic ischemic microvascular white matter changes. No evidence of intracranial hemorrhage. CTA neck: Left endarterectomy with removal of the arteriosclerotic plaque at the origin of the internal carotid artery and no evidence of residual luminal narrowing. Mild arteriosclerotic disease at the right bifurcation, unchanged, without significant luminal narrowing at the origin of the right internal carotid artery. CT angiogram head: Small left vertebral artery terminates as a posterior-inferior cerebellar artery and right vertebral artery is small in caliber distally, resulting in a small caliber basilar artery. Basilar artery gives rise to the right posterior cerebral artery. Left posterior cerebral artery is in origin. No evidence of dissection, aneurysm formation, or large vessel occlusion. at 2320 Reported and signed by: Gertrude Catalan MD Electronically Signed: Gertrude Catalan MD at 22:19 EDT Tel , Service support , Neck CTA 07/08/17 21:52 IMPRESSION: Noncontrast CT brain: Stable chronic ischemic microvascular white matter changes. No evidence of intracranial hemorrhage. CTA neck: Left endarterectomy with removal of the arteriosclerotic plaque at the origin of the internal carotid artery and no evidence of residual luminal narrowing. Mild arteriosclerotic disease at the right bifurcation, unchanged, without significant luminal narrowing at the origin of the right internal carotid artery. CT angiogram head: Small left vertebral artery terminates as a posterior-inferior cerebellar artery and right vertebral artery is small in caliber distally, resulting in a small caliber basilar artery. Basilar artery gives rise to the right posterior cerebral artery. Left posterior cerebral artery is in origin. No evidence of dissection, aneurysm formation, or large vessel occlusion. at 2321 Reported and signed by: Gertrude Catalan MD Electronically Signed: Gertrude Catalan MD at 22:20 EDT Tel , Service support , Assessment/Plan Active and Suspected Problems TIA (transient ischemic attack) (Acute) Hyponatremia (Acute) Hypokalemia (Acute) 1. Possible TIA/visual changes Given the patient's recent history think it prudent to rule out a TIA. Patient is already once angiograms so plan is next for RI of her brain. It is possible that this could be related with patient's hyponatremia but will need to evaluate for possible TIA or stroke. If stroke or to is noted then would recommend neurology consultation. Given that it is really not clear if this is a metabolic issue or possible TIA holding off on that for right now as patient is asymptomatic. 2. Hyponatremia Had a dramatic drop over the past week from 136-122. Possible this could be the etiology of some of her symptoms. Plan is for saline IV fluid and I will check some urine studies. But I feel that this is probably related with patient's concomitant HCTZ use plus her decreased appetite as well as increased free water intake. Would recommend discontinuing HCTZ altogether. 3. Hypokalemia I feel is also related with HCTZ and also decreased dietary intake and free water intake Will replace and check magnesium level later in the morning. 4. Recent left carotid endarterectomy Appears to be stable. No acute issues at this time. Follow-up with Dr. Jolley as outpatient. 5. DVT prophylaxis with low molecular weight heparin Patient seen and examined July 08, 2017. Code Visit Inpatient E&M: 03245 Init Hosp L3 - billing for 07/08/17
--- NOTE | 2017-07-09 00:52 | HP.PCM_ITS ---
Problem List (1) TIA (transient ischemic attack) Status: Acute (2) Hyponatremia Status: Acute (3) Hypokalemia Status: Acute (4) Carotid stenosis, symptomatic w/o infarct Status: Chronic Qualifiers: Laterality: left (5) Hypertension Status: Chronic Qualifiers: Hypertension type: essential hypertension Qualified Code(s): I10 - Essential (primary) hypertension (6) Hyperlipemia Status: Chronic Qualifiers: Hyperlipidemia type: unspecified Qualified Code(s): E78.5 - Hyperlipidemia , unspecified (7) [place] diverticulum Status: Chronic (8) GERD (gastroesophageal reflux disease) Status: Chronic Qualifiers: Esophagitis presence: esophagitis presence not specified Qualified Code(s) : K21.9 - Gastro-esophageal reflux disease without esophagitis (9) CAD (coronary artery disease) Status: Chronic Qualifiers: Coronary Disease-Associated Artery/Lesion type: [place] artery [place] vs. transplanted heart: [place] heart Associated angina: without angina Qualified Code(s): I25.10 - Atherosclerotic heart disease of [place] coronary artery without angina pectoris (10) Obesity (BMI 30-39.9) Status: Chronic History of Present Illness Date of Admission: 07/08/17 Chief Complaint: visual changes The patient is a 72 year old F patient was experiencing some visual changes on the patient was seeing a glob on her left visual field that progressed over to her right. This is somewhat different than the visual changes that she had experienced on the where patient was having some zigzags . Symptoms are resolved but with patient's recent hospitalization and the fact that patient was just discharged earlier on the after having a left carotid endarterectomy patient presented again to the emergency room. The emergency room doctor spoke with Dr. Jolley who advised for the patient to have a CT angiogram. CT angiogram showed no acute process and no dissection. It was noted, however the patient's sodium was down to 122, whereas on the , it was 136. Patient states that she has not been eating much but has been drinking a lot of fluids during this time. Patient does take hydrochlorothiazide which she has been on for some time. [] Past Medical History Past Medical History (Chronic Problems): Chronic Problems Carotid stenosis, symptomatic w/o infarct (Chronic) Hypertension (Chronic) Hyperlipemia (Chronic) [place] diverticulum (Chronic) GERD (gastroesophageal reflux disease) (Chronic) CAD (coronary artery disease) (Chronic) Marijuana use (Chronic) Obesity (BMI 30-39.9) (Chronic) Allergies quinapril [From Accupril] Adverse Reaction (Verified 07/08/17 21:08) Other Home Medications: Ambulatory Orders Medication Instructions Recorded Atenolol [Tenormin] 25 mg PO DAILY 01/18/17 Cholecalciferol (VIT D3) [Vitamin 2,000 unit PO DAILY 01/18/17 D3] Cyanocobalamin (Vitamin B-12) 1,000 mcg PO DAILY 01/18/17 [Vitamin B12] Folic Acid 2 mg PO DAILY@0800 01/18/17 Losartan/Hydrochlorothiazide 1 each PO DAILY 01/18/17 [Losartan-Hctz 100-25 mg Tab] Multivitamins,Therapeutic 1 tablet PO DAILY 01/18/17 [Multivitamin] Omeprazole Magnesium [Prilosec Otc] 20 mg PO DAILY 01/18/17 Psyllium [Metamucil] 1 packet PO DAILY 01/18/17 Aspirin E.C. [Ecotrin] 81 mg PO QHS 07/06/17 Atorvastatin Calcium [Lipitor] 80 mg PO QHS 07/06/17 Hydrocodone Bitart/Apap 5-325 1 tablet PO Q6H PRN PRN 3 Days #8 07/07/17 [[place] 5MG-325MG] tablet Surgical History: - - Tubal ligation, lymph node removal left neck due to necrotic lymph node. Left carotid endarterectomy on July 07, 2017. 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 Denies: Anorexia, Chills, Fever Eyes: Reports: Vision Change. Denies: Blurred vision, Double vision HEENT: Denies: Head Aches, Sinus Congestion, Sinus Drainage Cardiovascular: Denies: Chest Pain, Palpitations Respiratory: Denies: Cough, Shortness of breath at rest, Sputum production Gastrointestinal: Denies: Abdominal Pain, Nausea, Vomiting Genitourinary: Denies: Dysuria Musculoskeletal: Denies: Joint Pain, Joint Tenderness Skin: Denies: Rash, Wounds Neurological: Denies: Numbness, Tingling, Focal weakness Psychiatric: Denies: Anxiety, Depression Hematologic/ Lymphatic: Denies: Easy Bruising, Easy Bleeding, Hx of blood clot VTE Information - Inpt Only VTE Present on Admission: No VTE Pharm Prophylaxis ordered?: Yes Patient Problems: Active and Suspected Problems TIA (transient ischemic attack) (Acute) Hyponatremia (Acute) Hypokalemia (Acute) - Physical Exam General: Alert, Cooperative, No apparent distress, Well developed, Well nourished HEENT: Atraumatic, PERRLA, EOMI, Normocephalic Oral: Moist Mucosa, No Gingival or Mucosal Lesions/ Ulcerations Neck: No Nodes, Thyroid Normal Size and Texture, - - Left carotid endarterectomy incision well approximated with Steri-Strips. No discharge nor any bleeding noted. Lungs: Clear to auscultation, Normal air movement, No rhonchi, No wheeze Cardiovascular: Regular rate, Regular Rhythm, Normal S1, Normal S2, No murmurs Abdomen: Bowel Sounds Present, Soft, Non Tender, Non-Distended, No Hepato- splenomegaly, Passing Flatus Extremities: No clubbing, No cyanosis, No edema Skin: No rashes, No breakdown, - - Numerous tattoos throughout Musculoskeletal: No Tenderness to Palpation of Joints or Extremities, No Muscle Wasting Neurological: Cranial nerves II-XII grossly intact, Deep Tendon Reflexes 2+/4 and Symmetrical, Neuro grossly intact, Motor Exam 5/5 strength throughout Psych/Mental Status: Normal Affect, Appropriate Vital Signs Temp Pulse Resp BP Pulse Ox 36.9 C 80 17 171/96 H 96 07/08/17 21:07 07/09/17 00:20 07/09/17 00:20 07/09/17 00:20 07/08/17 23:05 Oxygen Delivery Method Room Air Weight: 85.729 kg Body Mass Index (BMI) 38.1 Laboratory Tests Past 24 Hrs 07/08/17 07/08/17 07/08/17 21:27 21:27 21:27 WBC 8.9 RBC 3.82 L Hgb 11.5 L Hct 33.2 L MCV 86.9 MCH 30.1 MCHC 34.6 RDW 13.9 RDW Differential 44.3 H Plt Count 373 MPV 9.5 Immature Gran % (Auto) 0.100 Neut % (Auto) 79.0 H Lymph % (Auto) 11.9 L [place] % (Auto) 6.9 Eos % (Auto) 1.9 Baso % (Auto) 0.2 Absolute Neuts (auto) 7.1 Absolute Lymphs (auto) 1.06 Total Counted Not Reportable PT 13.3 INR 1.0 APTT 32.0 Sodium 122 L Potassium 3.1 L Chloride 89 L Carbon Dioxide 27.0 Anion Gap 6 BUN 6 L Creatinine 0.58 Estim Creat Clear Calc 70.85 Est GFR (MDRD) Af Amer 133 Est GFR (MDRD) Non-Af 110 BUN/Creatinine Ratio 10.4 Glucose 121 H Calcium 8.6 Clinical Impression(s) from Imaging Studies Head CTA 07/08/17 21:52 IMPRESSION: Noncontrast CT brain: Stable chronic ischemic microvascular white matter changes. No evidence of intracranial hemorrhage. CTA neck: Left endarterectomy with removal of the arteriosclerotic plaque at the origin of the internal carotid artery and no evidence of residual luminal narrowing. Mild arteriosclerotic disease at the right bifurcation, unchanged, without significant luminal narrowing at the origin of the right internal carotid artery. CT angiogram head: Small left vertebral artery terminates as a posterior-inferior cerebellar artery and right vertebral artery is small in caliber distally, resulting in a small caliber basilar artery. Basilar artery gives rise to the right posterior cerebral artery. Left posterior cerebral artery is in origin. No evidence of dissection, aneurysm formation, or large vessel occlusion. at 2320 Reported and signed by: Gertrude Catalan MD Electronically Signed: Gertrude Catalan MD at 22:19 EDT Tel , Service support , Neck CTA 07/08/17 21:52 IMPRESSION: Noncontrast CT brain: Stable chronic ischemic microvascular white matter changes. No evidence of intracranial hemorrhage. CTA neck: Left endarterectomy with removal of the arteriosclerotic plaque at the origin of the internal carotid artery and no evidence of residual luminal narrowing. Mild arteriosclerotic disease at the right bifurcation, unchanged, without significant luminal narrowing at the origin of the right internal carotid artery. CT angiogram head: Small left vertebral artery terminates as a posterior-inferior cerebellar artery and right vertebral artery is small in caliber distally, resulting in a small caliber basilar artery. Basilar artery gives rise to the right posterior cerebral artery. Left posterior cerebral artery is in origin. No evidence of dissection, aneurysm formation, or large vessel occlusion. at 2321 Reported and signed by: Gertrude Catalan MD Electronically Signed: Gertrude Catalan MD at 22:20 EDT Tel , Service support , Assessment/Plan Active and Suspected Problems TIA (transient ischemic attack) (Acute) Hyponatremia (Acute) Hypokalemia (Acute) 1. Possible TIA/visual changes * Given the patient's recent history think it prudent to rule out a TIA. Patient is already once angiograms so plan is next for RI of her brain. It is possible that this could be related with patient's hyponatremia but will need to evaluate for possible TIA or stroke. * If stroke or to is noted then would recommend neurology consultation. Given that it is really not clear if this is a metabolic issue or possible TIA holding off on that for right now as patient is asymptomatic. 2. Hyponatremia * Had a dramatic drop over the past week from 136-122. Possible this could be the etiology of some of her symptoms. * Plan is for saline IV fluid and I will check some urine studies. But I feel that this is probably related with patient's concomitant HCTZ use plus her decreased appetite as well as increased free water intake. * Would recommend discontinuing HCTZ altogether. 3. Hypokalemia * I feel is also related with HCTZ and also decreased dietary intake and free water intake * Will replace and check magnesium level later in the morning. 4. Recent left carotid endarterectomy * Appears to be stable. No acute issues at this time. Follow-up with Dr. Jolley as outpatient. 5. DVT prophylaxis with low molecular weight heparin Patient seen and examined July 08, 2017. Code Visit Inpatient E&M: [id number] Init Hosp L3 - billing for 07/08/17
[2017-07-09] MEDS: 0.9% NaCl Peripheral Flush Adult/Peds IV (02:40)
[2017-07-09 03:18] LABS: Bacteria 0 SEEN /hpf (None Seen); Mucous, Urine 0 SEEN /hpf (<or=2+); White Blood Cells 0 SEEN /hpf (0-5)
[2017-07-09 03:38] LABS: Color, Urine Straw (Yellow); Glucose, Dipstick Normal (Normal); Ketone-Dipstick 5 mg/dl (Negative); Leukocyte Esterase-Dipstick Negative /ul (Negative); Nitrite-Dipstick Negative (Negative); Occult Blood-Urine 25 /ul (Negative); Protein-Dipstick Negative (Negative); Specific Gravity, Urine 1.005 (1.002-1.030); Urine Bilirubin Dipstick Negative (Negative); Urine Clarity Clear (Clear); Urine Urobilinogen Normal (Normal)
[2017-07-09 03:39] LABS: Urine Sodium 31 mmol/L (Not Establ.)
[2017-07-09 03:43] LABS: Red Blood Cells-Urine 0-5 SEEN /hpf (0-5); Squamous Epithelial Cells - UA 0-5 SEEN /hpf (5-10)
[2017-07-09 04:33] LABS: Osmolality, Urine 149 mOsm/KG
[2017-07-09 06:56] LABS: Anion Gap 9 (5-15); BUN 5 mg/dL (7-18); BUN/Creat Ratio 8.3 RATIO (10-20); Calcium,Total 8.5 mg/dL (8.5-10.1); Chloride 94 mmol/L (98-107); EST Glomerular Filtration Rate 105 mL/min (>60); Est Glom Filt Rate - Afr Amer 127 mL/min (>60); Estimated Creatinine Clearance 70.24 ml/min; Glucose 98 mg/dL (74-106); Magnesium 1.9 mg/dL (1.6-2.6); Potassium 3.3 mmol/L (3.5-5.1); Sodium Level 130 mmol/L (136-145)
--- NOTE | 2017-07-09 07:42 | PCM.PN.SRG ---
Patient Problems: Active and Suspected Problems TIA (transient ischemic attack) (Acute) Hyponatremia (Acute) Hypokalemia (Acute) Subjective: Patient reports that she is having no dizziness this morning. She has no other visual symptoms this morning. Her only symptom this morning is some nausea. She has had no more vomiting. - Physical Exam General: Alert, Oriented x3, Cooperative, No apparent distress HEENT: Atraumatic, Normocephalic Neck: Supple Lungs: Normal air movement Cardiovascular: Regular rate, Regular Rhythm Abdomen: Soft, Non Tender, Non-Distended Vital Signs Temp Pulse Resp BP Pulse Ox 99.4 F H 92 14 165/78 H 93 07/09/17 05:21 07/09/17 07:12 07/09/17 05:21 07/09/17 05:21 07/09/17 05:21 Oxygen Delivery Method Room Air Weight: 187 lb 6.287 oz Body Mass Index (BMI) 37.8 Intake and Output for Last 24 Hours 07/07/17 07/08/17 07/09/17 23:59 23:59 23:59 Intake Total 567 / 567 Balance 567 / 567 Laboratory Tests Past 24 Hrs 07/09/17 07/09/17 07/09/17 02:35 02:35 02:35 Sodium Potassium Chloride Carbon Dioxide Anion Gap BUN Creatinine Estim Creat Clear Calc Est GFR (MDRD) Af Amer Est GFR (MDRD) Non-Af BUN/Creatinine Ratio Glucose Serum Osmolality Calcium Magnesium Urine Color Straw Urine Clarity Clear Urine pH 7.0 Ur Specific [place] 1.005 Urine Protein Negative Urine Glucose (UA) Normal Urine Ketones 5 H Urine Occult Blood 25 H Urine Nitrite Negative Urine Bilirubin Negative Urine Urobilinogen Normal Ur Leukocyte Esterase Negative Urine RBC 0-5 SEEN Urine WBC 0 SEEN Ur Squamous Epith Cells 0-5 SEEN Urine Bacteria 0 SEEN Urine Mucus 0 SEEN Urine Osmolality 149 Ur Random Sodium 31 07/09/17 07/09/17 05:30 05:30 Sodium 130 L Potassium 3.3 L Chloride 94 L Carbon Dioxide 27.0 Anion Gap 9 BUN 5 L Creatinine 0.60 Estim Creat Clear Calc 70.24 Est GFR (MDRD) Af Amer 127 Est GFR (MDRD) Non-Af 105 BUN/Creatinine Ratio 8.3 L Glucose 98 Serum Osmolality Pending Calcium 8.5 Magnesium 1.9 Urine Color Urine Clarity Urine pH Ur Specific [place] Urine Protein Urine Glucose (UA) Urine Ketones Urine Occult Blood Urine Nitrite Urine Bilirubin Urine Urobilinogen Ur Leukocyte Esterase Urine RBC Urine WBC Ur Squamous Epith Cells Urine Bacteria Urine Mucus Urine Osmolality Ur Random Sodium Clinical Impression(s) from Imaging Studies Head CTA 07/08/17 21:52 IMPRESSION: Noncontrast CT brain: Stable chronic ischemic microvascular white matter changes. No evidence of intracranial hemorrhage. CTA neck: Left endarterectomy with removal of the arteriosclerotic plaque at the origin of the internal carotid artery and no evidence of residual luminal narrowing. Mild arteriosclerotic disease at the right bifurcation, unchanged, without significant luminal narrowing at the origin of the right internal carotid artery. CT angiogram head: Small left vertebral artery terminates as a posterior-inferior cerebellar artery and right vertebral artery is small in caliber distally, resulting in a small caliber basilar artery. Basilar artery gives rise to the right posterior cerebral artery. Left posterior cerebral artery is in origin. No evidence of dissection, aneurysm formation, or large vessel occlusion. at 2320 Reported and signed by: Gertrude Catalan MD Electronically Signed: Gertrude Catalan MD at 22:19 EDT Tel , Service support , Neck CTA 07/08/17 21:52 IMPRESSION: Noncontrast CT brain: Stable chronic ischemic microvascular white matter changes. No evidence of intracranial hemorrhage. CTA neck: Left endarterectomy with removal of the arteriosclerotic plaque at the origin of the internal carotid artery and no evidence of residual luminal narrowing. Mild arteriosclerotic disease at the right bifurcation, unchanged, without significant luminal narrowing at the origin of the right internal carotid artery. CT angiogram head: Small left vertebral artery terminates as a posterior-inferior cerebellar artery and right vertebral artery is small in caliber distally, resulting in a small caliber basilar artery. Basilar artery gives rise to the right posterior cerebral artery. Left posterior cerebral artery is in origin. No evidence of dissection, aneurysm formation, or large vessel occlusion. at 2321 Reported and signed by: Gertrude Catalan MD Electronically Signed: Gertrude Catalan MD at 22:20 EDT Tel , Service support , Medical Necessity - Tobacco Use Smoking Status: Never smoker Tobacco Use: Non-smoker Assessment/Plan Active and Suspected Problems TIA (transient ischemic attack) (Acute) Hyponatremia (Acute) Hypokalemia (Acute) 72-year-old female status post left carotid endarterectomy 1. The patient reports resolution of all of her symptoms except nausea. She has no visual disturbances this morning and she is not having any dizziness or vomiting. 2. Her neck is soft with some soft tissue swelling but no firm hematoma. There is no ecchymosis or erythema at the incision. 3. Patient still hypertensive. 4. Follow-up with Dr. Jolley as outpatient. Peyman Peter MD Pager: [facility] [address], [place] [phone] Office:
[2017-07-09 07:55] LABS: Osmolality, Serum 270 mOsm/KG (280-301)
[2017-07-09] MEDS: Atenolol 25 MG Tablet PO (09:26)
[2017-07-09] MEDS: Folic Acid 1 MG Tablet 2 MG PO (09:26)
[2017-07-09] MEDS: Pantoprazole Sodium 20 MG Tablet PO (09:26)
[2017-07-09] MEDS: Losartan Potassium 100 MG Tablet PO (09:26)
[2017-07-09] MEDS: Multivitamins,Therapeutic Tablet 1 TABLET PO (09:26)
[2017-07-09] MEDS: Enoxaparin 40 MG/0.4 ML Syringe SC (09:28)
[2017-07-09] MEDS: Cyanocobalamin 500 MCG Tablet 1000 MCG PO (09:30)
--- NOTE | 2017-07-09 09:57 | MRI_ITS ---
STUDY: MRI BRAIN WITHOUT CONTRAST REASON FOR EXAM: Female, 72 years old. Pt had left carotid endarterectomy 07/07/17 and has new onset of vision changes on left TECHNIQUE: Standardized multiplanar fat and water weighted pulse sequences were obtained. COMPARISON: July 04, 2017 FINDINGS: There is ventricular enlargement with prominence of the anterior horns and temporal tips of the bilateral lateral ventricles. There is confluent periventricular hyperintensity cloaking the lateral ventricles. There is thinning with bowing of the corpus callosum. There is enlargement of the third ventricle. 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 There are multiple white matter hyperintensities, distributed throughout the deep white matter tracts of the cerebral hemispheres, consistent with moderate chronic white matter ischemic changes. Normal bilateral basal ganglia. Normal thalami. There is no extra-axial fluid accumulation. Normal flow voids within the major intracranial circulation suggesting patency by spin echo criteria. Normal sella turcica, pituitary gland, infundibular stalk, optic chiasm and hypothalamus. Normal tectal plate and pineal gland. There is mucoperiosteal inflammatory disease of the paranasal sinuses consistent with moderate chronic sinusitis. MRI/Brain without Contrast IMPRESSION: No acute intracranial abnormality. Moderate chronic microvascular ischemic changes. Electronically Signed: Louie Breaux MD at 11:42 EDT Tel , Service support ,
--- NOTE | 2017-07-09 11:53 | PCM.PN.HOSP ---
Patient Problems: Active and Suspected Problems TIA (transient ischemic attack) (Acute) Hyponatremia (Acute) Hypokalemia (Acute) Subjective: Patient was seen and examined. She denies seeing a name blobs of light on the left side of her eye. Denied any weakness in her body. Feels much improved by a little bit spacey Vitals/I&O's: Vital Signs Temp Pulse Resp BP Pulse Ox 98.8 F 72 16 138/87 H 100 07/09/17 09:21 07/09/17 11:19 07/09/17 09:21 07/09/17 09:21 07/09/17 09:21 Oxygen Delivery Method Room Air Weight: 85 kg Body Mass Index (BMI) 37.8 Intake and Output for Last 24 Hours 07/07/17 07/08/17 07/09/17 23:59 23:59 23:59 Intake Total 567 / 567 Balance 567 / 567 Laboratory Results 07/09/17 02:35: Urine Osmolality 149 07/09/17 02:35: Urine Color Straw, Urine Clarity Clear, Urine pH 7.0, Ur Specific [place] 1.005, Urine Protein Negative, Urine Glucose (UA) Normal, Urine Ketones 5 H, Urine Occult Blood 25 H, Urine Nitrite Negative, Urine Bilirubin Negative, Urine Urobilinogen Normal, Ur Leukocyte Esterase Negative, Urine RBC 0-5 SEEN, Urine WBC 0 SEEN, Ur Squamous Epith Cells 0-5 SEEN, Urine Bacteria 0 SEEN, Urine Mucus 0 SEEN 07/09/17 02:35: Ur Random Sodium 31 07/09/17 05:30: Serum Osmolality 270 L 07/09/17 05:30: Sodium 130 L, Potassium 3.3 L, Chloride 94 L, Carbon Dioxide 27.0, Anion Gap 9, BUN 5 L, Creatinine 0.60, Estim Creat Clear Calc 70.24, Est GFR (MDRD) Af Amer 127, Est GFR (MDRD) Non-Af 105, BUN/Creatinine Ratio 8.3 L, Glucose 98, Calcium 8.5, Magnesium 1.9 Current Medications Acetaminophen (Tylenol) 650 mg PO Q6H PRN PRN PRN Reason: Mild Pain (1-3)/Temp > 100.7 F Hydrocodone Bitart/Acetaminophen ([place] 5mg-325mg) 1 tablet PO Q6H PRN PRN PRN Reason: PAIN Aspirin (Ecotrin) 81 mg PO QHS [facility] Atenolol (Tenormin (Beta Ernesto)) 25 mg PO DAILY [facility] Last Admin: 07/09/17 09:26 Dose: 25 mg Atorvastatin Calcium (Lipitor) 80 mg PO QHS [facility] Cholecalciferol (Vitamin D) 2,000 unit PO DAILY [facility] Last Admin: 07/09/17 09:26 Dose: 2,000 unit Cyanocobalamin (Vitamin B12) 1,000 mcg PO DAILY [facility] Last Admin: 07/09/17 09:30 Dose: 1,000 mcg Enoxaparin Sodium (Lovenox) 40 mg SC DAILY@1000 [facility] Last Admin: 07/09/17 09:28 Dose: 40 mg Folic Acid (Folic Acid) 2 mg PO DAILY@0800 [facility] Last Admin: 07/09/17 09:26 Dose: 2 mg Losartan Potassium (Cozaar) 100 mg PO DAILY [facility] Last Admin: 07/09/17 09:26 Dose: 100 mg Magnesium Hydroxide (Milk Of Magnesia) 30 ml PO DAILY PRN PRN Reason: Constipation [facility] Last Admin: 07/09/17 09:26 Dose: 1 tablet Ondansetron HCl (Zofran) 4 mg IV Q8H PRN PRN PRN Reason: NAUSEA Pantoprazole Sodium (Protonix) 20 mg PO DAILY [facility] Last Admin: 07/09/17 09:26 Dose: 20 mg Psyllium Hydrophilic Mucilloid (Metamucil) 1 packet PO DAILY [facility] Sodium Chloride () 5 - 30 ml IV UD PRN PRN Reason: SALINE FLUSH Last Admin: 07/09/17 02:40 Dose: 10 ml Medical Necessity - Tobacco Use Smoking Status: Never smoker Tobacco Use: Non-smoker Assessment/Plan Active and Suspected Problems TIA (transient ischemic attack) (Acute) Hyponatremia (Acute) Hypokalemia (Acute)
--- NOTE | 2017-07-09 12:00 | PCM.PN.HOSP ---
Patient Problems: Active and Suspected Problems TIA (transient ischemic attack) (Acute) Hyponatremia (Acute) Hypokalemia (Acute) Subjective: Patient was seen and examined. Denies any light blob out of the left side of eye. Denies any weakness in any part of the body,or tingling or numbness. No acute events on telemetry. Vitals/I&O's: Vital Signs Temp Pulse Resp BP Pulse Ox 98.8 F 72 16 138/87 H 100 07/09/17 09:21 07/09/17 11:19 07/09/17 09:21 07/09/17 09:21 07/09/17 09:21 Oxygen Delivery Method Room Air Weight: 85 kg Body Mass Index (BMI) 37.8 Intake and Output for Last 24 Hours 07/07/17 07/08/17 07/09/17 23:59 23:59 23:59 Intake Total 567 / 567 Balance 567 / 567 General: Alert, Oriented x3, Cooperative, - - Obese HEENT: Atraumatic, PERRLA, EOMI, Normocephalic Oral: Moist Mucosa Neck: Supple, - - Incision on left anterior neck looks clean, dry Lungs: Clear to auscultation, Normal air movement Cardiovascular: Regular rate, Regular Rhythm, Normal S1, Normal S2, No murmurs Abdomen: Bowel Sounds Present, Soft, Non Tender, Non-Distended, No Hepato-splenomegaly Extremities: No edema Skin: No rashes, No breakdown Musculoskeletal: No Tenderness to Palpation of Joints or Extremities Lymphatic: No Cervical, Supraclavicular, or Inguinal Adenopathy Neurological: Cranial nerves II-XII grossly intact Psych/Mental Status: Normal Affect, Appropriate Laboratory Results 07/09/17 02:35: Urine Osmolality 149 07/09/17 02:35: Urine Color Straw, Urine Clarity Clear, Urine pH 7.0, Ur Specific [place] 1.005, Urine Protein Negative, Urine Glucose (UA) Normal, Urine Ketones 5 H, Urine Occult Blood 25 H, Urine Nitrite Negative, Urine Bilirubin Negative, Urine Urobilinogen Normal, Ur Leukocyte Esterase Negative, Urine RBC 0-5 SEEN, Urine WBC 0 SEEN, Ur Squamous Epith Cells 0-5 SEEN, Urine Bacteria 0 SEEN, Urine Mucus 0 SEEN 07/09/17 02:35: Ur Random Sodium 31 07/09/17 05:30: Serum Osmolality 270 L 07/09/17 05:30: Sodium 130 L, Potassium 3.3 L, Chloride 94 L, Carbon Dioxide 27.0, Anion Gap 9, BUN 5 L, Creatinine 0.60, Estim Creat Clear Calc 70.24, Est GFR (MDRD) Af Amer 127, Est GFR (MDRD) Non-Af 105, BUN/Creatinine Ratio 8.3 L, Glucose 98, Calcium 8.5, Magnesium 1.9 Current Medications Acetaminophen (Tylenol) 650 mg PO Q6H PRN PRN PRN Reason: Mild Pain (1-3)/Temp > 100.7 F Hydrocodone Bitart/Acetaminophen ([place] 5mg-325mg) 1 tablet PO Q6H PRN PRN PRN Reason: PAIN Aspirin (Ecotrin) 81 mg PO QHS [facility] Atenolol (Tenormin (Beta Ernesto)) 25 mg PO DAILY [facility] Last Admin: 07/09/17 09:26 Dose: 25 mg Atorvastatin Calcium (Lipitor) 80 mg PO QHS [facility] Cholecalciferol (Vitamin D) 2,000 unit PO DAILY [facility] Last Admin: 07/09/17 09:26 Dose: 2,000 unit Cyanocobalamin (Vitamin B12) 1,000 mcg PO DAILY [facility] Last Admin: 07/09/17 09:30 Dose: 1,000 mcg Enoxaparin Sodium (Lovenox) 40 mg SC DAILY@1000 [facility] Last Admin: 07/09/17 09:28 Dose: 40 mg Folic Acid (Folic Acid) 2 mg PO DAILY@0800 [facility] Last Admin: 07/09/17 09:26 Dose: 2 mg Losartan Potassium (Cozaar) 100 mg PO DAILY [facility] Last Admin: 07/09/17 09:26 Dose: 100 mg Magnesium Hydroxide (Milk Of Magnesia) 30 ml PO DAILY PRN PRN Reason: Constipation [facility]) [facility] Last Admin: 07/09/17 09:26 Dose: 1 tablet Ondansetron HCl (Zofran) 4 mg IV Q8H PRN PRN PRN Reason: NAUSEA Pantoprazole Sodium (Protonix) 20 mg PO DAILY [facility] Last Admin: 07/09/17 09:26 Dose: 20 mg Psyllium Hydrophilic Mucilloid (Metamucil) 1 packet PO DAILY [facility] Sodium Chloride () 5 - 30 ml IV UD PRN PRN Reason: SALINE FLUSH Last Admin: 07/09/17 02:40 Dose: 10 ml Medical Necessity - Tobacco Use Smoking Status: Never smoker Tobacco Use: Non-smoker Assessment/Plan Active and Suspected Problems TIA (transient ischemic attack) (Acute) Hyponatremia (Acute) Hypokalemia (Acute) 72 y/o female past medical history of attention, hyperlipidemia, Zenker's diverticulum, GERD who comes in with visual changes ongoing since 07/08/2017. Patient had left carotid endarterectomy done on 07/07/2017. 1. Visual changes, less likely to be due to TIA, likely related to electrolyte imbalances, CTA of the head and neck is negative, MRI of the brain is negative, . Discussed with Dr. Christianson, agrees with the above assessment, okay for patient to be on aspirin, statin, will need to be followed up on discharge with a neurology clinic in 2-3 weeks. 2. Hyponatremia, chronic, likely secondary to use of hydrochlorothiazide; hydrochlorothiazide has been stopped, Na improved to 130 from 122 with IVF. Will dc IVF, repeat BMP in am 3. Hypokalemia due to hydrochlorothiazide, potassium this morning is 3.3, would replace, recheck in a.m. 4. Recent left carotid endarterectomy, stable, on aspirin, statin 5. Zenker's diverticulum, on PPI 6. DVT Prophylaxis with Lovenox Sc Code Visit Inpatient E&M: 92888 Subs Hosp L3
--- NOTE | 2017-07-09 12:19 | PN_ITS ---
Patient Problems: Active and Suspected Problems TIA (transient ischemic attack) (Acute) Hyponatremia (Acute) Hypokalemia (Acute) Subjective: Patient was seen and examined. She denies seeing a name blobs of light on the left side of her eye. Denied any weakness in her body. Feels much improved by a little bit spacey Vitals/I&O's: Vital Signs Temp Pulse Resp BP Pulse Ox 98.8 F 72 16 138/87 H 100 07/09/17 09:21 07/09/17 11:19 07/09/17 09:21 07/09/17 09:21 07/09/17 09:21 Oxygen Delivery Method Room Air Weight: 85 kg Body Mass Index (BMI) 37.8 Intake and Output for Last 24 Hours 07/07/17 07/08/17 07/09/17 23:59 23:59 23:59 Intake Total 567 / 567 Balance 567 / 567 Laboratory Results 07/09/17 02:35: Urine Osmolality 149 07/09/17 02:35: Urine Color Straw, Urine Clarity Clear, Urine pH 7.0, Ur Specific [place] 1.005, Urine Protein Negative, Urine Glucose (UA) Normal, Urine Ketones 5 H, Urine Occult Blood 25 H, Urine Nitrite Negative, Urine Bilirubin Negative, Urine Urobilinogen Normal, Ur Leukocyte Esterase Negative, Urine RBC 0-5 SEEN, Urine WBC 0 SEEN, Ur Squamous Epith Cells 0-5 SEEN, Urine Bacteria 0 SEEN, Urine Mucus 0 SEEN 07/09/17 02:35: Ur Random Sodium 31 07/09/17 05:30: Serum Osmolality 270 L 07/09/17 05:30: Sodium 130 L, Potassium 3.3 L, Chloride 94 L, Carbon Dioxide 27.0, Anion Gap 9, BUN 5 L, Creatinine 0.60, Estim Creat Clear Calc 70.24, Est GFR (MDRD) Af Amer 127, Est GFR (MDRD) Non-Af 105, BUN/Creatinine Ratio 8.3 L, Glucose 98, Calcium 8.5, Magnesium 1.9 Current Medications Acetaminophen (Tylenol) 650 mg PO Q6H PRN PRN PRN Reason: Mild Pain (1-3)/Temp > 100.7 F Hydrocodone Bitart/Acetaminophen ([place] 5mg-325mg) 1 tablet PO Q6H PRN PRN PRN Reason: PAIN Aspirin (Ecotrin) 81 mg PO QHS [facility] Atenolol (Tenormin (Beta Ernesto)) 25 mg PO DAILY [facility] Last Admin: 07/09/17 09:26 Dose: 25 mg Atorvastatin Calcium (Lipitor) 80 mg PO QHS [facility] Cholecalciferol (Vitamin D) 2,000 unit PO DAILY [facility] Last Admin: 07/09/17 09:26 Dose: 2,000 unit Cyanocobalamin (Vitamin B12) 1,000 mcg PO DAILY [facility] Last Admin: 07/09/17 09:30 Dose: 1,000 mcg Enoxaparin Sodium (Lovenox) 40 mg SC DAILY@1000 [facility] Last Admin: 07/09/17 09:28 Dose: 40 mg Folic Acid (Folic Acid) 2 mg PO DAILY@0800 [facility] Last Admin: 07/09/17 09:26 Dose: 2 mg Losartan Potassium (Cozaar) 100 mg PO DAILY [facility] Last Admin: 07/09/17 09:26 Dose: 100 mg Magnesium Hydroxide (Milk Of Magnesia) 30 ml PO DAILY PRN PRN Reason: Constipation [facility] Last Admin: 07/09/17 09:26 Dose: 1 tablet Ondansetron HCl (Zofran) 4 mg IV Q8H PRN PRN PRN Reason: NAUSEA Pantoprazole Sodium (Protonix) 20 mg PO DAILY [facility] Last Admin: 07/09/17 09:26 Dose: 20 mg Psyllium Hydrophilic Mucilloid (Metamucil) 1 packet PO DAILY [facility] Sodium Chloride () 5 - 30 ml IV UD PRN PRN Reason: SALINE FLUSH Last Admin: 07/09/17 02:40 Dose: 10 ml Medical Necessity - Tobacco Use Smoking Status: Never smoker Tobacco Use: Non-smoker Assessment/Plan Active and Suspected Problems TIA (transient ischemic attack) (Acute) Hyponatremia (Acute) Hypokalemia (Acute)
--- NOTE | 2017-07-09 12:20 | PN_ITS ---
Patient Problems: Active and Suspected Problems TIA (transient ischemic attack) (Acute) Hyponatremia (Acute) Hypokalemia (Acute) Subjective: Patient was seen and examined. Denies any light blob out of the left side of eye. Denies any weakness in any part of the body,or tingling or numbness. No acute events on telemetry. Vitals/I&O's: Vital Signs Temp Pulse Resp BP Pulse Ox 98.8 F 72 16 138/87 H 100 07/09/17 09:21 07/09/17 11:19 07/09/17 09:21 07/09/17 09:21 07/09/17 09:21 Oxygen Delivery Method Room Air Weight: 85 kg Body Mass Index (BMI) 37.8 Intake and Output for Last 24 Hours 07/07/17 07/08/17 07/09/17 23:59 23:59 23:59 Intake Total 567 / 567 Balance 567 / 567 General: Alert, Oriented x3, Cooperative, - - Obese HEENT: Atraumatic, PERRLA, EOMI, Normocephalic Oral: Moist Mucosa Neck: Supple, - - Incision on left anterior neck looks clean, dry Lungs: Clear to auscultation, Normal air movement Cardiovascular: Regular rate, Regular Rhythm, Normal S1, Normal S2, No murmurs Abdomen: Bowel Sounds Present, Soft, Non Tender, Non-Distended, No Hepato- splenomegaly Extremities: No edema Skin: No rashes, No breakdown Musculoskeletal: No Tenderness to Palpation of Joints or Extremities Lymphatic: No Cervical, Supraclavicular, or Inguinal Adenopathy Neurological: Cranial nerves II-XII grossly intact Psych/Mental Status: Normal Affect, Appropriate Laboratory Results 07/09/17 02:35: Urine Osmolality 149 07/09/17 02:35: Urine Color Straw, Urine Clarity Clear, Urine pH 7.0, Ur Specific [place] 1.005, Urine Protein Negative, Urine Glucose (UA) Normal, Urine Ketones 5 H, Urine Occult Blood 25 H, Urine Nitrite Negative, Urine Bilirubin Negative, Urine Urobilinogen Normal, Ur Leukocyte Esterase Negative, Urine RBC 0-5 SEEN, Urine WBC 0 SEEN, Ur Squamous Epith Cells 0-5 SEEN, Urine Bacteria 0 SEEN, Urine Mucus 0 SEEN 07/09/17 02:35: Ur Random Sodium 31 07/09/17 05:30: Serum Osmolality 270 L 07/09/17 05:30: Sodium 130 L, Potassium 3.3 L, Chloride 94 L, Carbon Dioxide 27.0, Anion Gap 9, BUN 5 L, Creatinine 0.60, Estim Creat Clear Calc 70.24, Est GFR (MDRD) Af Amer 127, Est GFR (MDRD) Non-Af 105, BUN/Creatinine Ratio 8.3 L, Glucose 98, Calcium 8.5, Magnesium 1.9 Current Medications Acetaminophen (Tylenol) 650 mg PO Q6H PRN PRN PRN Reason: Mild Pain (1-3)/Temp > 100.7 F Hydrocodone Bitart/Acetaminophen ([place] 5mg-325mg) 1 tablet PO Q6H PRN PRN PRN Reason: PAIN Aspirin (Ecotrin) 81 mg PO QHS [facility] Atenolol (Tenormin (Beta Ernesto)) 25 mg PO DAILY [facility] Last Admin: 07/09/17 09:26 Dose: 25 mg Atorvastatin Calcium (Lipitor) 80 mg PO QHS [facility] Cholecalciferol (Vitamin D) 2,000 unit PO DAILY [facility] Last Admin: 07/09/17 09:26 Dose: 2,000 unit Cyanocobalamin (Vitamin B12) 1,000 mcg PO DAILY [facility] Last Admin: 07/09/17 09:30 Dose: 1,000 mcg Enoxaparin Sodium (Lovenox) 40 mg SC DAILY@1000 [facility] Last Admin: 07/09/17 09:28 Dose: 40 mg Folic Acid (Folic Acid) 2 mg PO DAILY@0800 [facility] Last Admin: 07/09/17 09:26 Dose: 2 mg Losartan Potassium (Cozaar) 100 mg PO DAILY [facility] Last Admin: 07/09/17 09:26 Dose: 100 mg Magnesium Hydroxide (Milk Of Magnesia) 30 ml PO DAILY PRN PRN Reason: Constipation [facility] Last Admin: 07/09/17 09:26 Dose: 1 tablet Ondansetron HCl (Zofran) 4 mg IV Q8H PRN PRN PRN Reason: NAUSEA Pantoprazole Sodium (Protonix) 20 mg PO DAILY [facility] Last Admin: 07/09/17 09:26 Dose: 20 mg Psyllium Hydrophilic Mucilloid (Metamucil) 1 packet PO DAILY [facility] Sodium Chloride () 5 - 30 ml IV UD PRN PRN Reason: SALINE FLUSH Last Admin: 07/09/17 02:40 Dose: 10 ml Medical Necessity - Tobacco Use Smoking Status: Never smoker Tobacco Use: Non-smoker Assessment/Plan Active and Suspected Problems TIA (transient ischemic attack) (Acute) Hyponatremia (Acute) Hypokalemia (Acute) 72 y/o female past medical history of attention, hyperlipidemia, Zenker's diverticulum, GERD who comes in with visual changes ongoing since 07/08/2017. Patient had left carotid endarterectomy done on 07/07/2017. 1. Visual changes, less likely to be due to TIA, likely related to electrolyte imbalances, CTA of the head and neck is negative, MRI of the brain is negative, . Discussed with Dr. Christianson, agrees with the above assessment, okay for patient to be on aspirin, statin, will need to be followed up on discharge with a neurology clinic in 2-3 weeks. 2. Hyponatremia, chronic, likely secondary to use of hydrochlorothiazide; hydrochlorothiazide has been stopped, Na improved to 130 from 122 with IVF. Will dc IVF, repeat BMP in am 3. Hypokalemia due to hydrochlorothiazide, potassium this morning is 3.3, would replace, recheck in a.m. 4. Recent left carotid endarterectomy, stable, on aspirin, statin 5. Zenker's diverticulum, on PPI 6. DVT Prophylaxis with Lovenox Sc Code Visit Inpatient E&M: 12736 Subs Hosp L3
--- NOTE | 2017-07-09 13:04 | CASEMGMT ---
CM Readmission Assessment: Prior Admission: 07/03/17 - 07/05/17 Suspected TIA Prior Admission: 07/07/17 - 07/08/17 Left Carotid Endarterectomy Current Admission: 07/08/17, Patient presented to ED with visual changes. Patient was admitted for hyponatremia, possible TIA. Demographics/Providers/Pharmacy all verified. Patient lives in a one story home, with one step into home. Patient states she has a walker available to her, but does not need to use it normally. She does still drive. She states he has never used home health services. She has living will and POA paperwork, but has not yet completed these documents. Disposition: Patient would like to return home upon discharge. CM will continue to follow for safe discharge planning.
[2017-07-09] MEDS: Psyllium 1 PACKET PO (16:37)
[2017-07-09] MEDS: Aspirin E.C. 81 MG Tablet PO (21:26)
[2017-07-09] MEDS: Atorvastatin Calcium 80 MG Tablet PO (21:26)
[2017-07-10 04:25] VITALS: PULSE 65
[2017-07-10 04:40] VITALS: BP 141/78; PULSE 70; RESP 16; TEMP 36.9; O2SAT 97
[2017-07-10 06:52] LABS: Anion Gap 7 (5-15); BUN 9 mg/dL (7-18); BUN/Creat Ratio 14.2 RATIO (10-20); Calcium,Total 8.6 mg/dL (8.5-10.1); Chloride 103 mmol/L (98-107); Creatinine, Serum 0.64 mg/dL (0.55-1.02); EST Glomerular Filtration Rate 98 mL/min (>60); Est Glom Filt Rate - Afr Amer 119 mL/min (>60); Estimated Creatinine Clearance 70.24 ml/min; Glucose 88 mg/dL (74-106); Potassium 3.6 mmol/L (3.5-5.1); Sodium Level 138 mmol/L (136-145)
[2017-07-10 06:58] VITALS: PULSE 66
[2017-07-10 09:15] VITALS: BP 144/87; PULSE 87; RESP 16; TEMP 36.8; O2SAT 97
[2017-07-10] MEDS: Atenolol 25 MG Tablet PO (09:15)
[2017-07-10] MEDS: Pantoprazole Sodium 20 MG Tablet PO (09:15)
[2017-07-10] MEDS: Losartan Potassium 100 MG Tablet PO (09:15)
[2017-07-10] MEDS: Enoxaparin 40 MG/0.4 ML Syringe SC (09:15)
[2017-07-10] MEDS: Folic Acid 1 MG Tablet 2 MG PO (09:16)
[2017-07-10] MEDS: Multivitamins,Therapeutic Tablet 1 TABLET PO (09:16)
[2017-07-10] MEDS: Cyanocobalamin 500 MCG Tablet 1000 MCG PO (09:16)
--- NOTE | 2017-07-10 09:29 | PCM.DC ---
- Discharge Diagnoses Current Active Problems: Current Active and Chronic Problems TIA (transient ischemic attack) (Acute) Hyponatremia (Acute) Hypokalemia (Acute) Reason(s) for Visit for Discharge Instructions: Visual changes You will use the following diet at home:: Calorie/Carbohydrate Controlled (specify 1200, 1400, etc) Your food should be the consistency of: Regular Your liquids should be the consistency of: Regular/Thin Discharge Activity: Return to Normal Activity Additional Instructions: Note the changes in your medications. You have been prescribed a new blood pressure medication to replace hydrochlorothiazide in your previous medication. You need to see your doctor to follow-up on blood pressure and possibly have adjustments made to the medications. You should continue to follow-up with Dr. Jolley, Neurology and your doctor as scheduled. Allergies/Adverse Reactions: Allergies quinapril [From Accupril] Adverse Reaction (Verified 07/08/17 21:08) Other Medications to take at Discharge Atenolol [Tenormin] 25 mg PO DAILY 01/18/17 Cholecalciferol (VIT D3) [Vitamin D3] 2,000 unit PO DAILY 01/18/17 Cyanocobalamin (Vitamin B-12) [Vitamin B12] 1,000 mcg PO DAILY 01/18/17 Folic Acid 2 mg PO DAILY@0800 01/18/17 Multivitamins,Therapeutic [Multivitamin] 1 tablet PO DAILY 01/18/17 Omeprazole Magnesium [Prilosec Otc] 20 mg PO DAILY 01/18/17 Psyllium [Metamucil] 1 packet PO DAILY 01/18/17 Aspirin E.C. [Ecotrin] 81 mg PO QHS 07/06/17 Atorvastatin Calcium [Lipitor] 80 mg PO QHS 07/06/17 Hydrocodone Bitart/Apap 5-325 [[place] 5/325] 1 tablet PO Q6H PRN PRN 3 Days #8 tablet 07/07/17 Amlodipine [Norvasc] 2.5 mg PO DAILY #30 tab 07/10/17 Losartan Potassium [Cozaar] 100 mg PO DAILY #30 tab 07/10/17 The following prescriptions were given: Losartan Potassium [Cozaar] 100 mg PO DAILY #30 tab Primary Care Physician: Bright Gupta MD [Primary Care Provider] - Please follow up with your Primary Care Physician in: within 2 weeks Please Follow Up With: eSa Christianson MD When: in 2-3 weeks Please Follow Up With: Malcolm Jolley MD When: as previously scheduled Proposed Discharge Date: 07/10/17
--- NOTE | 2017-07-10 09:36 | DCINST_ITS ---
- Discharge Diagnoses Current Active Problems: Current Active and Chronic Problems TIA (transient ischemic attack) (Acute) Hyponatremia (Acute) Hypokalemia (Acute) Reason(s) for Visit for Discharge Instructions: Visual changes You will use the following diet at home:: Calorie/Carbohydrate Controlled ( specify 1200, 1400, etc) Your food should be the consistency of: Regular Your liquids should be the consistency of: Regular/Thin Discharge Activity: Return to Normal Activity Additional Instructions: Note the changes in your medications. You have been prescribed a new blood pressure medication to replace hydrochlorothiazide in your previous medication. You need to see your doctor to follow-up on blood pressure and possibly have adjustments made to the medications. You should continue to follow-up with Dr. Jolley, Neurology and your doctor as scheduled. Allergies/Adverse Reactions: Allergies quinapril [From Accupril] Adverse Reaction (Verified 07/08/17 21:08) Other Medications to take at Discharge Atenolol [Tenormin] 25 mg PO DAILY 01/18/17 Cholecalciferol (VIT D3) [Vitamin D3] 2,000 unit PO DAILY 01/18/17 Cyanocobalamin (Vitamin B-12) [Vitamin B12] 1,000 mcg PO DAILY 01/18/17 Folic Acid 2 mg PO DAILY@0800 01/18/17 Multivitamins,Therapeutic [Multivitamin] 1 tablet PO DAILY 01/18/17 Omeprazole Magnesium [Prilosec Otc] 20 mg PO DAILY 01/18/17 Psyllium [Metamucil] 1 packet PO DAILY 01/18/17 Aspirin E.C. [Ecotrin] 81 mg PO QHS 07/06/17 Atorvastatin Calcium [Lipitor] 80 mg PO QHS 07/06/17 Hydrocodone Bitart/Apap 5-325 [[place] 5/325] 1 tablet PO Q6H PRN PRN 3 Days #8 tablet 07/07/17 Amlodipine [Norvasc] 2.5 mg PO DAILY #30 tab 07/10/17 Losartan Potassium [Cozaar] 100 mg PO DAILY #30 tab 07/10/17 The following prescriptions were given: Losartan Potassium [Cozaar] 100 mg PO DAILY #30 tab Primary Care Physician: Bright Gupta MD [Primary Care Provider] - Please follow up with your Primary Care Physician in: within 2 weeks Please Follow Up With: Sea Christianson MD When: in 2-3 weeks Please Follow Up With: Malcolm Jolley MD When: as previously scheduled Proposed Discharge Date: 07/10/17
[2017-07-10 10:20] VITALS: BP 149/89; PULSE 82; RESP 18; O2SAT 97
[2017-07-10] MEDS: amLODIPine 2.5 MG Tablet PO (10:33)
--- NOTE | 2017-07-10 10:38 | NURSING ---
Walked patient around halls per physician request prior to d/c. Tolerated well, no dizziness or SOB.
--- NOTE | 2017-07-18 07:10 | PCM.DC.SUM ---
Discharge Date and Diagnosis Date of Admission: 07/08/17 Date of Discharge: 07/10/17 - Primary Discharge Diagnosis Visual changes secondary to electrolyte imbalances Hyponatremia, Hypokalemia Recent left carotid endarterectomy. - Secondary Discharge Diagnosis Chronic Problems Carotid stenosis, symptomatic w/o infarct (Chronic) Hypertension (Chronic) Hyperlipemia (Chronic) Zenkers diverticulum (Chronic) GERD (gastroesophageal reflux disease) (Chronic) CAD (coronary artery disease) (Chronic) Marijuana use (Chronic) Obesity (BMI 30-39.9) (Chronic) Hospital Course and Treatment Imaging Results: Clinical Impression(s) from Imaging Studies Head CTA 07/08/17 21:52 IMPRESSION: Noncontrast CT brain: Stable chronic ischemic microvascular white matter changes. No evidence of intracranial hemorrhage. CTA neck: Left endarterectomy with removal of the arteriosclerotic plaque at the origin of the internal carotid artery and no evidence of residual luminal narrowing. Mild arteriosclerotic disease at the right bifurcation, unchanged, without significant luminal narrowing at the origin of the right internal carotid artery. CT angiogram head: Small left vertebral artery terminates as a posterior-inferior cerebellar artery and right vertebral artery is small in caliber distally, resulting in a small caliber basilar artery. Basilar artery gives rise to the right posterior cerebral artery. Left posterior cerebral artery is in origin. No evidence of dissection, aneurysm formation, or large vessel occlusion. at 2320 Reported and signed by: Gertrude Catalan MD Electronically Signed: Gertrude Catalan MD at 22:19 EDT Tel , Service support , Neck CTA 07/08/17 21:52 IMPRESSION: Noncontrast CT brain: Stable chronic ischemic microvascular white matter changes. No evidence of intracranial hemorrhage. CTA neck: Left endarterectomy with removal of the arteriosclerotic plaque at the origin of the internal carotid artery and no evidence of residual luminal narrowing. Mild arteriosclerotic disease at the right bifurcation, unchanged, without significant luminal narrowing at the origin of the right internal carotid artery. CT angiogram head: Small left vertebral artery terminates as a posterior-inferior cerebellar artery and right vertebral artery is small in caliber distally, resulting in a small caliber basilar artery. Basilar artery gives rise to the right posterior cerebral artery. Left posterior cerebral artery is in origin. No evidence of dissection, aneurysm formation, or large vessel occlusion. at 2321 Reported and signed by: Gertrude Catalan MD Electronically Signed: Gertrude Catalan MD at 22:20 EDT Tel , Service support , Brain MRI 07/09/17 09:57 IMPRESSION: No acute intracranial abnormality. Moderate chronic microvascular ischemic changes. Electronically Signed: Louie Breaux MD at 11:42 EDT Tel , Service support , Neurology Operations: None Procedures: None Summary of Care Provided: The patient is a 72 year old F [] 72 y/o female past medical history of hypertension, hyperlipidemia, Zenker's diverticulum, GERD who comes in with visual changes ongoing since 07/08/2017. Patient had recent left carotid endarterectomy done on 07/07/2017. She described her visual changes as seeing a glob on her left visual field that gradually progressed to her right. THis was different from what she had seen on 07/03/17 for which a TIA was diagnosed. 1. Visual changes, likely secondary to electrolyte imbalances, resolved in the admission. CTA of the head and neck is negative, MRI of the brain is negative, discharged on on aspirin, statin, will follow up on discharge with a neurology clinic in 2-3 weeks, repeat BMP in a couple of days. 2. Hyponatremia, ?acute on chronic, secondary to use of hydrochlorothiazide; hydrochlorothiazide has been stopped, admitted with sodium of 122 which improved with IVF. Needs to be followed up in the outpatient. 3. Hypokalemia due to hydrochlorothiazide, replaced, will be checked in the outpatient. 4. Recent left carotid endarterectomy, stable, on aspirin, statin, will follow-up post-op instructions per Dr. Jolley, including follow-up. 5. Zenker's diverticulum, on PPI Discharge Diet: Low fat/ Low Cholesterol, 2000 mg Sodium Diet Discharge Activity: Return to Normal Activity Home Medications: Medications to take at Discharge Atenolol [Tenormin] 25 mg PO DAILY 01/18/17 Cholecalciferol (VIT D3) [Vitamin D3] 2,000 unit PO DAILY 01/18/17 Cyanocobalamin (Vitamin B-12) [Vitamin B12] 1,000 mcg PO DAILY 01/18/17 Folic Acid 2 mg PO DAILY@0800 01/18/17 Multivitamins,Therapeutic [Multivitamin] 1 tablet PO DAILY 01/18/17 Omeprazole Magnesium [Prilosec Otc] 20 mg PO DAILY 01/18/17 Psyllium [Metamucil] 1 packet PO DAILY 01/18/17 Aspirin E.C. [Ecotrin] 81 mg PO QHS 07/06/17 Atorvastatin Calcium [Lipitor] 80 mg PO QHS 07/06/17 Hydrocodone Bitart/Apap 5-325 [[place] 5/325] 1 tablet PO Q6H PRN PRN 3 Days #8 tablet 07/07/17 Amlodipine [Norvasc] 2.5 mg PO DAILY #30 tab 07/10/17 Losartan Potassium [Cozaar] 100 mg PO DAILY #30 tab 07/10/17 Following Prescrptions Were Given to Patient: Amlodipine [Norvasc] 2.5 mg PO DAILY #30 tab Losartan Potassium [Cozaar] 100 mg PO DAILY #30 tab Primary Care Physician: Bright Gupta MD [Primary Care Provider] - Please follow up with your Primary Care Physician in: within 2 weeks Please Follow Up With: Sea Christianson MD When: in 2-3 weeks Please Follow Up With: Malcolm Jolley MD When: as previously scheduled Disposition: Home Minutes spent on discharge:: 25 Patient Condition:: Stable Medical Necessity - Tobacco Use Smoking Status: Never smoker Tobacco Use: Non-smoker Meaningful Use Info Meaningful Use Diagnoses (Choose all that apply): None applicable Code Visit Inpatient E&M: 63518 Disch Hosp
== END 2017-07-10 10:58 | disposition home or self-care (01) | DRG 641 ==
LOC: ED 23:43 → PCU 07-09 00:52
PROVIDERS: Emergency Provider Emergency Medicine; Family Provider Family Medicine; PCP Family Medicine; Visit Provider Internal Medicine
DX: E87.1 Hypo-osmolality and hyponatremia (principal); E78.5 Hyperlipidemia, unspecified; E87.6 Hypokalemia; Z98.890 Other specified postprocedural states; K22.5 Diverticulum of esophagus, acquired; Z79.899 Other long term (current) drug therapy; T50.2X5A Adverse effect of carbonic-anhydrase inhibitors, benzothiadiazides and other diuretics, initial encounter; H53.9 Unspecified visual disturbance; I10 Essential (primary) hypertension; H53.8 Other visual disturbances
CPT/HCPCS: 36415; 70496; 70498; 70551; 80048; 81001; 83735; 83930; 83935; 84300; 85025; 85610; 85730; 97161; 97165; 97802; 99281; J7030; Q9967; A4216

== ENCOUNTER → 2017-07-13 14:00 | Outpatient (CLI) | payer MEDICARE, OTHER, SELFPAY ==
[2017-07-13 14:51] LABS: Anion Gap 6 (5-15); BUN 13 mg/dL (7-18); BUN/Creat Ratio 14.7 RATIO (10-20); Chloride 102 mmol/L (98-107); Creatinine, Serum 0.88 mg/dL (0.55-1.02); EST Glomerular Filtration Rate 67 mL/min (>60); Est Glom Filt Rate - Afr Amer 81 mL/min (>60); Glucose 84 mg/dL (74-106); Potassium 4.2 mmol/L (3.5-5.1); Sodium Level 138 mmol/L (136-145)
== END ==
PROVIDERS: Family Provider Family Medicine; PCP Family Medicine; Visit Provider Internal Medicine
DX: E87.6 Hypokalemia (principal); E87.1 Hypo-osmolality and hyponatremia
CPT/HCPCS: 36415; 80048

== ENCOUNTER → 2017-07-18 11:57 | Outpatient (CLI) | payer MEDICARE, OTHER, SELFPAY ==
[2017-07-18 12:34] LABS: ALB/GLOB Ratio 0.9 RATIO (0.9-2.4); AST(SGOT) 19 U/L (15-37); Alanine Aminotransfer ALT/SGPT 24 U/L (13-56); Albumin, Serum 3.8 g/dL (3.2-5.0); Alkaline Phosphatase 89 U/L (45-117); Anion Gap 7 (5-15); BUN 14 mg/dL (7-18); BUN/Creat Ratio 18.2 RATIO (10-20); Calcium,Total 9.4 mg/dL (8.5-10.1); Chloride 102 mmol/L (98-107); Creatinine, Serum 0.77 mg/dL (0.55-1.02); EST Glomerular Filtration Rate 79 mL/min (>60); Est Glom Filt Rate - Afr Amer 96 mL/min (>60); Globulin 4.1 g/dL (2.2-4.2); Glucose 100 mg/dL (74-106); Potassium 4.3 mmol/L (3.5-5.1); Protein, Total 7.9 g/dL (6.4-8.2); Sodium Level 136 mmol/L (136-145)
== END ==
PROVIDERS: Family Provider Family Medicine; PCP Family Medicine; Visit Provider Family Medicine
DX: I10 Essential (primary) hypertension (principal)
CPT/HCPCS: 80053

== ENCOUNTER 2017-07-31 08:58 | Emergency (ER) | payer MEDICARE, OTHER, SELFPAY ==
[2017-07-31 09:01] VITALS: BP 113/82; PULSE 85; RESP 16; TEMP 36.9; O2SAT 94; BMI 36.7
--- NOTE | 2017-07-31 09:15 | EKG12_ITS ---
Test Reason : DIZZINESS Blood Pressure : / mmHG Vent. Rate : 084 BPM Atrial Rate : 084 BPM P-R Int : 136 ms QRS Dur : 088 ms QT Int : 356 ms P-R-T Axes : 002 050 019 degrees QTc Int : 420 ms Normal sinus rhythm Normal ECG Confirmed by TERRY EVANS, ROWAN ([id number]), avid editor ALEXANDER QUISPE ([id number] on 08/02/2017 2:49:07 PM Referred By: DONELL Confirmed By:ROWAN STEWART MD
--- NOTE | 2017-07-31 09:15 | CT_ITS ---
STUDY: CT BRAIN WITHOUT CONTRAST REASON FOR EXAM: Female, 72 years old. Dizziness and weakness RADIATION DOSAGE (If Supplied By Facility): CTDIvol = ( 44.99 ) mGy, DLP = ( 745.49 ) mGycm TECHNIQUE: Transaxial CT imaging of the brain was performed without administration of intravenous contrast material. Individualized dose optimization techniques were used for this CT. COMPARISON: 07/08/2017 FINDINGS: Normal soft tissue structures. Normal calvarium. There is mild cerebral atrophy with widening of the extra-axial spaces and ventricular dilatation. There are areas of decreased attenuation within the white matter tracts of the supratentorial brain, consistent with microvascular disease changes. Normal basal ganglia and thalami. Normal brainstem. There is mild cerebellar atrophy. There is no intracranial hemorrhage. There are no findings of an acute ischemic infarction. There is mucoperiosteal inflammatory disease of the paranasal sinuses consistent with mild chronic sinusitis. CT/Brain/Head without Contrast IMPRESSION: Chronic involutional changes of the brain. No significant change from July 08, 2017 Electronically Signed: Pablito Perry DO at 10:14 EDT Tel , Service support ,
--- NOTE | 2017-07-31 09:25 | ED.VISSUMM ---
- ER Visit Summary Date of Service: 07/31/17 Chief Complaint: [] Dizziness sense of imbalance fatigue left carotid endarterectomy July 07, 2017 History of Present Illness: The patient is a 72 F [] patient reports July 03, 2017 she had a TIA with left facial droop trouble speaking, she was found to have a significant occlusion left carotid that had carotid endarterectomy July 07, 2017, she was discharged the next day, she returned to the emergency department the day of discharge was found to have electrolyte abnormalities which were addressed she was sent home she is follow-up with her family physicians her neurologist or surgeon she had a postoperative MRI that showed no strokes or acute new abnormalities, she is persistent having intermittent episodes where she feels that she has trouble keeping her balance and feels generalized fatigue this occurred again today and brought to the emergency department, sitting in the bed she has no complaints she simply feels as when she walks she feels slightly unsteady we did walk her to the bathroom and she had no trouble walking, she denies headache chest pain abdominal pain or paresthesias there is no mental cloudiness her speech is easy to understand she has full range of motion of her extremities she has no focal complaints she has had no fever no cough normal bowel habits the patient does report that when she urinates she feels a stinging sensation and she feels sometimes she is constantly urinating to the point that she cannot empty her bladder she has no back pain no cough she has no history of UTI urinary retention review of systems otherwise negative Physical Examination: [] Her vital signs are within normal range she is resting cupping the bed her speech is easy to understand and normal her cranial nerve exam is unremarkable her oral cavity is normal her left carotid endarterectomy incision is intact minimally swollen nontender her neck movement is full, there is no nystagmus to extract muscle movement. Her movement of her head her lungs sound clear the heart tones are normal abdomen soft nontender upper lower extremity unremarkable motor strength is symmetric bilaterally no sensory deficit again her gait was strong and steady her NIH is 0 Test Results: [] Emergency Department Course and Treatment: [] Patient studies were all generally unremarkable including lab tests EKG head CT etc. except her UA showed signs of UTI urine culture sent we did check a bladder scan the bladder scan showed 40 cc only explained all the above to her I asked her if she felt too ill to be at home she stated she felt better she wanted to go home she did not wish to be admitted she is eating and drinking here in the department I explained all the test results to her the need to start her on antibiotics to clear up the UTI as that might be contributing to some of her symptoms, and her follow with her family physicians for more definitive management she understands and agrees she understands further that the urine culture is pending, we will start her on Cipro and Pyridium Treatment Plan: [] Disposition: [] Home stable Impression: [] Dense of fatigue, urinary tract infection, intermittent dizziness, recent carotid endarterectomy left This note was generated with [employer] dictation software. It may contain incorrect words, spelling, and punctuation that were not noted in review of the chart prior to signing ED Disposition - Plan for ED Patient: Chief Complaint: Dizziness Referrals: Bright Gupta MD [Primary Care Provider] -
--- NOTE | 2017-07-31 09:30 | RAD_ITS ---
STUDY: X-RAY CHEST REASON FOR EXAM: Female, 72 years old. Shortness of breath and dizziness TECHNIQUE: Single AP portable view of the chest. COMPARISON: 07/03/2017 FINDINGS: There is hyperinflation of the lungs consistent with chronic obstructive lung disease (COPD). Lungs are clear. Stable small hiatal hernia. There is no demonstrated pleural abnormality. Normal size heart. Normal mediastinum and manoj. Normal visualized pulmonary arteries. Normal visualized aortic arch and descending thoracic aorta. There are diffuse degenerative changes of the visualized thoracic spine. There is degenerative osteoarthritis of the bilateral shoulders. There is no demonstrated abnormality of the visualized soft tissue structures of the upper abdomen. RAD/Chest 1 View (Portable) IMPRESSION: COPD without acute findings Electronically Signed: Pablito Perry DO at 9:48 EDT Tel , Service support ,
[2017-07-31 09:36] LABS: Absolute Lymphocyte Count 0.78 X10^3/ul (0.83-4.51); Absolute Neutrophil Count 11.2 X10^3/uL (2.0-7.7); Basophil# 0.01 X10^3/uL; Basophil% 0.1 % (0-1); Eosinophil# 0.02 X10^3/uL; Eosinophils% 0.2 % (0-5); Hematocrit 37.5 % (37-47); Hemoglobin 12.3 g/dl (12.0-15.0); Lymphocyte # 0.78 X10^3/ul (4.0); Lymphocyte % 6.1 % (19-41); Mean Corp Hgb Conc 32.8 g/gl (32-36); Mean Corpuscular Hgb 29.1 pg (27.0-32.0); Mean Corpuscular Volume 88.9 fL (81-99); Mean Platelet Vol. 9.3 fl (6.2-12.0); Monocyte# 0.63 X10^3/uL; Neutrophil # 11.23 X10^3/uL (2.7-7.7); Neutrophil % 88.4 % (47-70); Platelet Count 353 K/mm3 (150-450); RBC Distribution Width CV 14.4 % (11.6-14.6); RBC Distribution Width SD 46.6 fl (35.1-43.9); Red Blood Count 4.22 M/mm3 (4.2-5.4); White Blood Count 12.7 K/mm3 (4.4-11.0)
[2017-07-31 09:37] LABS: POSITIVE COUNT NO; POSITIVE DIFFERENTIAL NO; POSITIVE MORPHOLOGY NO
[2017-07-31 09:52] LABS: AST(SGOT) 14 U/L (15-37); Alanine Aminotransfer ALT/SGPT 20 U/L (13-56); Albumin, Serum 3.6 g/dL (3.2-5.0); Alkaline Phosphatase 98 U/L (45-117); Anion Gap 9 (5-15); BUN 9 mg/dL (7-18); BUN/Creat Ratio 8.3 RATIO (10-20); Bilirubin, Direct 0.14 mg/dL (0.00-0.30); Calcium,Total 8.9 mg/dL (8.5-10.1); Chloride 100 mmol/L (98-107); Creatinine, Serum 1.09 mg/dL (0.55-1.02); EST Glomerular Filtration Rate 53 mL/min (>60); Est Glom Filt Rate - Afr Amer 64 mL/min (>60); Estimated Creatinine Clearance 62.59 ml/min; Globulin 4.5 g/dL (2.2-4.2); Glucose 157 mg/dL (74-106); Lipase 74 U/L (73-393); Potassium 3.7 mmol/L (3.5-5.1); Protein, Total 8.1 g/dL (6.4-8.2); Sodium Level 136 mmol/L (136-145)
[2017-07-31 10:00] VITALS: BP 113/62; PULSE 82; RESP 17; O2SAT 97
[2017-07-31 10:05] LABS: BNP,B-Type NATRIURETIC PEPTIDE 40.6 pg/mL (0-100)
[2017-07-31 10:28] LABS: Mucous, Urine 0 SEEN /hpf (<or=2+); Red Blood Cells-Urine 0 SEEN /hpf (0-5)
[2017-07-31 10:29] LABS: Color, Urine Yellow (Yellow); Glucose, Dipstick Normal (Normal); Ketone-Dipstick Negative (Negative); Leukocyte Esterase-Dipstick 500 /ul (Negative); Nitrite-Dipstick Positive (Negative); Occult Blood-Urine 150 /ul (Negative); Protein-Dipstick 100 mg/dl (Negative); Urine Bilirubin Dipstick Negative (Negative); Urine Clarity Sl. Cloudy (Clear); Urine Urobilinogen Normal (Normal)
[2017-07-31 10:42] LABS: Bacteria 1+ /hpf (None Seen); Squamous Epithelial Cells - UA 5-10 SEEN /hpf (5-10); White Blood Cells >100 SEEN /hpf (0-5)
[2017-07-31 11:00] VITALS: BP 124/75; PULSE 78; RESP 17; O2SAT 96
[2017-07-31] MEDS: Ciprofloxacin 500 MG Tablet PO (11:01)
--- NOTE | 2017-07-31 11:58 | ED.DEP ---
ED Disposition - Plan for ED Patient: Chief Complaint: Dizziness Instructions: ED Dizziness UKO, ED UTI Cystitis Female Prescriptions: Phenazopyridine HCl [Pyridium] 200 mg PO BID PRN PRN #6 tab PRN Reason: Pain Ciprofloxacin [Cipro] 500 mg PO BID #14 tab Referrals: Bright Gupta MD [Primary Care Provider] -
[2017-07-31 12:29] VITALS: BP 107/68; PULSE 87; RESP 20; TEMP 37.1; O2SAT 96
--- NOTE | 2017-07-31 12:30 | ED.RN ---
REVIEWED D/C INSTRUCTIONS, FOLLOW UP CARE, PRESCRIPTIONS, AND S/S THAT WOULD WARRANT A RETURN TO THE ED WITH PT. PT VERBALIZED AN UNDERSTANDING AND DENIES FURTHER QUESTIONS FOR THIS RN. PT SKIN P/W/D, RESP EVEN AND UNLABORED, PT A&O X 3, NO DISTRESS NOTED. PT ASSISTED OUT OF ED IN WHEELCHAIR.
== END 2017-07-31 12:31 | disposition home or self-care (01) ==
LOC: ED 10:05
PROVIDERS: Emergency Provider Emergency Medicine; Family Provider Family Medicine; PCP Family Medicine
DX: N39.0 Urinary tract infection, site not specified (principal); R42 Dizziness and giddiness; R53.83 Other fatigue; Z98.890 Other specified postprocedural states; I69.892 Facial weakness following other cerebrovascular disease; I69.821 Dysphasia following other cerebrovascular disease
CPT/HCPCS: 70450; 71045; 80048; 80076; 81001; 83690; 83880; 84484; 85025; 87086; 87088; 87186; 93005; 96360; 99284; J7030; J7040

== ENCOUNTER 2017-08-02 09:54 | Inpatient (IN) | payer MEDICARE, OTHER, SELFPAY ==
[2017-08-02] VITALS (18 sets, daily range): BP systolic 122–187; BP diastolic 75–102; PULSE 78–89; RESP 10–18; TEMP 36.1–37.8; O2SAT 95–99; BMI 36.7; BMI 36.8; BMI 36.1
--- NOTE | 2017-08-02 10:47 | MRI_ITS ---
MRA Neck WO/W Contrast INDICATION: expressive aphasia, numbness/tingling in lips, dizziness, hx left carotid endarterectomy 07/07/17 COMPARISON: CTA July 08, 2017 TECHNIQUE: MR angiogram of the neck into the [id number]-vq-[id number] technique and 3-D wupq-xz-gugvou technique with 3-D reformatted images. Without and with IV contrast, total of 9 mL liters of gaddavist given intravenously. FINDINGS: There is symmetric flow related signal in the common carotid arteries. There is normal origin and symmetric flow in the internal carotid arteries to the level of the skull base. There is no significant luminal narrowing at the carotid bifurcations. Posterior circulation demonstrates small caliber of both vertebral arteries, left smaller than right, left vertebral artery terminates as a posterior-inferior cerebellar artery. Distal right vertebral artery demonstrates thready flow and a small caliber basilar artery. MRI/MRA Neck WITH and W/O Contrast IMPRESSION: Unremarkable appearance of the common carotid arteries, bifurcations, internal carotid arteries. Posterior circulation appears insufficient with small caliber vertebral arteries and termination of the left vertebral artery into a posterior-inferior cerebellar artery, normal variation. Basilar artery is only supplied by the small caliber right vertebral artery, which demonstrates near absence of flow related signal distally, and focal occlusion at the proximal basilar artery cannot be entirely excluded. Basilar artery is small in caliber. (See MRA brain report for further detail) at 1407 Reported and signed by: Gertrude Catalan MD Electronically Signed: Gertrude Catalan MD at 14:06 EDT Tel , Service support ,
--- NOTE | 2017-08-02 10:47 | MRI_ITS ---
MRA Head W/O Contrast INDICATION: expressive aphasia, numbness/tingling in lips, dizziness, hx left carotid endarterectomy 07/07/17 COMPARISON: CTA July 08, 2017 TECHNIQUE: MR angiogram of the [place] and 3-D eftk-jk-occwes technique. 3-D reformatted images. FINDINGS: There is symmetric flow related signal in the intracranial portions of the internal carotid arteries with symmetric supply to the anterior and middle cerebral arteries and their branching vessels. Posterior circulation again demonstrates small caliber of the left vertebral artery which terminates as a posterior-inferior cerebellar artery. There is very minimal flow related signal in the distal right vertebral artery and no convincing flow-related signal at the confluence to the basilar artery. Flow related signal in the proximal basilar artery is very minimal, and the caliber of the mid and distal basilar artery appears small, as described on prior CTA. The small basilar artery gives rise to the right posterior cerebral artery, which is also small in caliber. The left posterior cerebral artery is in origin. MRI/MRA Head ONLY without Contrast IMPRESSION: Insufficient posterior circulation : Small caliber left vertebral artery, terminating as posterior inferior cerebellar artery. Thready flow in the distal right vertebral artery and questionable short segment occlusion at the proximal basilar artery. Mid and distal basilar artery is small in caliber and gives rise to a small caliber right posterior cerebral artery with decreased flow related signal when compared to the contralateral side. The left posterior cerebral artery is in origin and demonstrates normal flow related signal. at 1346 Reported and signed by: Gertrude Catalan MD N.B. : The above information has been verbally conveyed by Gertrude Catalan MD to , Covering Physician, on 08/02/2017 13:51:33 (ET). Electronically Signed: Gertrude Catalan MD at 13:45 EDT Tel , Service support , N.B. : The above information has been verbally conveyed by Gertrude Catalan MD to , Covering Physician, on 08/02/2017 13:51:33 (ET).
--- NOTE | 2017-08-02 10:47 | MRI_ITS ---
MR Brain WO/W Contrast INDICATION: expressive aphasia, numbness/tingling in lips, dizziness, hx left carotid endarterectomy 07/07/17 COMPARISON: MRA from the prior day and CTA and CT from July 08, 2017 TECHNIQUE: Multiplanar multisequence MRI examination of the brain without and with IV contrast. 9 mL of gadavist given intravenously. FINDINGS: There is evidence of restricted diffusion in the bilateral cerebellar hemispheres, right larger than left compatible with bilateral cerebellar strokes. An additional punctate focus of restricted diffusion is seen in the right occipital cortex. Otherwise, no supratentorial restricted diffusion. The ventricular system and cortical sulci are prominent, compatible with generalized cerebral volume loss. There are patchy and confluent bilateral periventricular and subcortical T2/FLAIR signal hyperintensities, nonspecific, most compatible with chronic ischemic microvascular white matter changes. There is no evidence of parenchymal hemorrhage, mass effect, midline shift, or abnormal extra-axial collection. After contrast administration, there is no abnormal enhancement identified. There is partial opacification of the paranasal sinuses. The mastoid air cells are clear. MRI/Brain W/WO Contrast IMPRESSION: Acute bilateral cerebellar infarcts, right larger than left. Punctate focus of infarction in the right occipital cortex. Generalized cerebral volume loss and chronic ischemic microvascular white matter changes. Paranasal sinus disease. Findings of MRI and MRA communicated with Dr. Cazares's physician food and beverage assistant manager at 12:46 PM. at 1357 Reported and signed by: Gertrude Catalan MD N.B. : The above information has been verbally conveyed by Gertrude Catalan MD to Ky Cazares on 08/02/2017 13:51:41 (ET). Electronically Signed: Gertrude Catalan MD at 13:56 EDT Tel , Service support , N.B. : The above information has been verbally conveyed by Gertrude Catalan MD to Ky Cazares on 08/02/2017 13:51:41 (ET).
[2017-08-02 10:58] LABS: Absolute Lymphocyte Count 0.45 X10^3/ul (0.83-4.51); Absolute Neutrophil Count 6.2 X10^3/uL (2.0-7.7); Basophil# 0.02 X10^3/uL; Basophil% 0.3 % (0-1); Eosinophil# 0.02 X10^3/uL; Eosinophils% 0.3 % (0-5); Hematocrit 35.3 % (37-47); Hemoglobin 11.6 g/dl (12.0-15.0); Lymphocyte # 0.45 X10^3/ul (4.0); Mean Corp Hgb Conc 32.9 g/gl (32-36); Mean Corpuscular Hgb 28.9 pg (27.0-32.0); Mean Corpuscular Volume 87.8 fL (81-99); Mean Platelet Vol. 8.9 fl (6.2-12.0); Monocyte# 0.77 X10^3/uL; Monocyte% 10.3 % (0-10); Neutrophil # 6.19 X10^3/uL (2.7-7.7); Neutrophil % 83.1 % (47-70); Platelet Count 295 K/mm3 (150-450); RBC Distribution Width CV 14.2 % (11.6-14.6); Red Blood Count 4.02 M/mm3 (4.2-5.4); White Blood Count 7.5 K/mm3 (4.4-11.0)
[2017-08-02 10:59] LABS: Differential Indicated SCAN CRITERIA MET; POSITIVE COUNT NO; POSITIVE DIFFERENTIAL YES; POSITIVE MORPHOLOGY NO
[2017-08-02 11:06] LABS: Anion Gap 10 (5-15); BUN 11 mg/dL (7-18); BUN/Creat Ratio 12.8 RATIO (10-20); Calcium,Total 8.9 mg/dL (8.5-10.1); Chloride 99 mmol/L (98-107); Creatinine, Serum 0.86 mg/dL (0.55-1.02); EST Glomerular Filtration Rate 69 mL/min (>60); Est Glom Filt Rate - Afr Amer 84 mL/min (>60); Estimated Creatinine Clearance 79.33 ml/min; Glucose 126 mg/dL (74-106); Potassium 3.6 mmol/L (3.5-5.1); Sodium Level 136 mmol/L (136-145)
[2017-08-02] MEDS: 0.9% Normal Saline 1,000 ML 999 ML IV (11:12)
--- NOTE | 2017-08-02 15:37 | HP.PCM_ITS ---
Problem List (1) S/P carotid endarterectomy Status: Resolved Comment: 07/07/2017 (2) TIA (transient ischemic attack) Status: Resolved (3) CAD (coronary artery disease) Status: Chronic Qualifiers: Coronary Disease-Associated Artery/Lesion type: [place] artery [place] vs. transplanted heart: [place] heart Associated angina: without angina Qualified Code(s): I25.10 - Atherosclerotic heart disease of [place] coronary artery without angina pectoris (4) Carotid stenosis, symptomatic w/o infarct Status: Resolved Qualifiers: Laterality: left Qualified Code(s): I65.22 - Occlusion and stenosis of left carotid artery (5) GERD (gastroesophageal reflux disease) Status: Chronic Qualifiers: Esophagitis presence: esophagitis presence not specified Qualified Code(s) : K21.9 - Gastro-esophageal reflux disease without esophagitis (6) Hyperlipemia Status: Chronic Qualifiers: Hyperlipidemia type: unspecified Qualified Code(s): E78.5 - Hyperlipidemia , unspecified History of Present Illness Date of Admission: 08/02/17 Chief Complaint: Slurred speech Stephany Eid is a 72 F who is post left CEA done on July 07 to the emergency room today due to an episode of difficulty speaking. She has had problems with dizziness and vertigo after her procedure and was admitted here on July 08 when she presented to the [facility] ED with visual changes and underwent CT angiogram of the neck and that did not show nay dissection. She reports she has had vertigo and dizziness since then . She was noted to have expressive dysphasia this morning and it lasted for about 10 minutes. She reports no focal weakness associated with this. Emergency room she underwent MRI and MRA of the brain . The MRI of the brain showed acute bilateral cerebellar infarcts with right greater than left as well as punctate focus of infarction in the right occipital cortex. The MRA of the brain also showed insufficient posterior circulation, with a small caliber of the left vertebral artery, terminating as posterior inferior cerebellar artery. When I saw the patient in the emergency room , alert and oriented to time place and person , she spoke in full sentences without difficulty. She denied any focal deficit, headache, dizziness, chest pain shortness of breath palpitations or rapid heartbeat. Past Medical History Past Medical History (Chronic Problems): Chronic Problems (Last Reviewed 07/19/17 @ 13:19 by Jessica Neumann) Hypertension (Chronic) Hyperlipemia (Chronic) Zenkers diverticulum (Chronic) GERD (gastroesophageal reflux disease) (Chronic) CAD (coronary artery disease) (Chronic) Marijuana use (Chronic) Obesity (BMI 30-39.9) (Chronic) Allergies quinapril [From Accupril] Adverse Reaction (Verified 08/02/17 09:55) Other Home Medications: Ambulatory Orders Medication Instructions Recorded Atenolol [Tenormin] 25 mg PO DAILY 01/18/17 Cholecalciferol (VIT D3) [Vitamin 2,000 unit PO DAILY 01/18/17 D3] Cyanocobalamin (Vitamin B-12) 1,000 mcg PO DAILY 01/18/17 [Vitamin B12] Folic Acid 2 mg PO DAILY@0800 01/18/17 Multivitamins,Therapeutic 1 tab PO DAILY 01/18/17 [Multivitamin] Omeprazole Magnesium [Prilosec Otc] 20 mg PO DAILY 01/18/17 Psyllium [Metamucil] 1 packet PO DAILY PRN 01/18/17 Aspirin E.C. [Ecotrin] 81 mg PO QHS 07/06/17 Atorvastatin Calcium [Lipitor] 80 mg PO QHS 07/06/17 Phenazopyridine HCl [Pyridium] 200 mg PO BID PRN PRN #6 tab 07/31/17 Amlodipine [Norvasc] 2.5 mg PO QHS 08/02/17 Ciprofloxacin [Cipro] 500 mg PO BID 08/02/17 Losartan Potassium [Cozaar] 100 mg PO DAILY 08/02/17 Surgical History: - - Tubal ligation, lymph node removal left neck due to necrotic lymph node. Left carotid endarterectomy on July 07, 2017. 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 VTE Information - Inpt Only VTE Present on Admission: No VTE Mechan Device Prophylaxis: SCD's VTE Pharm Prophylaxis ordered?: No - Physical Exam General: Alert, Oriented x3 Neck: Supple, No JVD Lungs: Clear to auscultation Cardiovascular: Regular rate, Normal S1, Normal S2 Abdomen: Bowel Sounds Present, Soft, Non Tender Extremities: No clubbing Lymphatic: No Cervical, Supraclavicular, or Inguinal Adenopathy Neurological: Cranial nerves II-XII grossly intact, Deep Tendon Reflexes 2+/4 and Symmetrical, Neuro grossly intact, Motor Exam 5/5 strength throughout, Facial Droop, Slurred Speech Vital Signs Temp Pulse Resp BP Pulse Ox 98.1 F 81 16 187/79 H 97 08/02/17 15:24 08/02/17 15:24 08/02/17 15:24 08/02/17 15:24 08/02/17 15:24 Oxygen Delivery Method Room Air Weight: 82.554 kg Body Mass Index (BMI) 36.7 Laboratory Tests Past 24 Hrs 08/02/17 08/02/17 10:44 10:44 WBC 7.5 RBC 4.02 L Hgb 11.6 L Hct 35.3 L MCV 87.8 MCH 28.9 MCHC 32.9 RDW 14.2 RDW Differential 46.0 H Plt Count 295 MPV 8.9 Immature Gran % (Auto) 0.000 Neut % (Auto) 83.1 H Lymph % (Auto) 6.0 L Kidder % (Auto) 10.3 H Eos % (Auto) 0.3 Baso % (Auto) 0.3 Absolute Neuts (auto) 6.2 Absolute Lymphs (auto) 0.45 L Total Counted Not Reportable Sodium 136 Potassium 3.6 Chloride 99 Carbon Dioxide 27.0 Anion Gap 10 BUN 11 Creatinine 0.86 Estim Creat Clear Calc 79.33 Est GFR (MDRD) Af Amer 84 Est GFR (MDRD) Non-Af 69 BUN/Creatinine Ratio 12.8 Glucose 126 H Calcium 8.9 Assessment/Plan 1. Acute bilateral cerebellar infarcts; will place the patient in the ICU for close monitoring, will obtain echocardiogram in AM, her on Plavix and Lipitor. She will benefit from anticoagulation when the risk of hemorrhagic transformation is acceptable. Neurologist has been consulted. PT/OT/ST. 2. The insufficient posterior circulation likely causing #1. 3. Carotid artery disease status post recent left CEA. 4. Essential hypertension, we would hold off on her antihypertensive therapy to allow for permissive hypertension given #1 5. GERD;she is on a PPI. 6. DVT prophylaxis with Lovenox. 7. Advanced directive and goals of care were discussed, the patient is a Full Code and wants everything done. My clinical impression, plan of management and management goals were discussed with the patient and family in lay terms and he verbalized understanding. Further management of this patient will be dictated by her clinical progress. Code Visit Inpatient E&M: 02302 Init Hosp L3
--- NOTE | 2017-08-02 15:57 | ED.VISSUMM ---
- ER Visit Summary Date of Service: 08/02/17 Chief Complaint: Speech difficulties History of Present Illness: The patient is a [address] shane today, Dr. Malcolm Jolley, and Dr. Perry. She was admitted to the hospital last month following a TIA and had a left carotid endarterectomy performed on July 08. She reports that she has had vertigo off and on since this and that is not as bad as usual today. However, she reports that a 37 this morning she had approximately 10 minute episode of expressive aphasia. This was not accompanied by any numbness or weakness. No change in her vision. She is completely asymptomatic now. Physical Examination: Vitals: Stable. Afebrile. General: Well-nourished and well-developed. Head: Normocephalic atraumatic. Neck: Supple, no lymphadenopathy. No JVD. Nontender. Cardiovascular: Regular rate and rhythm. No murmurs. Respiratory: No respiratory distress. Clear to auscultation bilaterally. Abdominal: Soft, nontender, nondistended, normal bowel sounds. No guarding, rebound, or peritoneal signs. Back: Nontender. Extremities: Nontender, no edema. Skin: Normal color, no rash. Neurologic: Alert and oriented ?3. Cranial nerves II through XII are intact. Normal strength and sensation. Psych: Normal affect. Test Results: CBC is remarkable for an H&H of 11.6 and 35.3, 7 neutrophils 83, lymphocytes of 6, monocytes of 10. Glucose is marked for a sugar of 126. Clinical Impression(s) from Imaging Studies Head MRA 08/02/17 10:47 IMPRESSION: Insufficient posterior circulation : Small caliber left vertebral artery, terminating as posterior inferior cerebellar artery. Thready flow in the distal right vertebral artery and questionable short segment occlusion at the proximal basilar artery. Mid and distal basilar artery is small in caliber and gives rise to a small caliber right posterior cerebral artery with decreased flow related signal when compared to the contralateral side. The left posterior cerebral artery is in origin and demonstrates normal flow related signal. MRI brain shows acute bilateral cerebellar infarcts right greater than left. Punctate focus of infarction in the right occipital cortex. Emergency Department Course and Treatment: Patient has remained comfortable while here and her NIH scale remains 0. Treatment Plan: The patient was discussed with Dr. Perry. At this time she will be admitted to the hospital. He does not want to anticoagulate her at this time. The patient was discussed with Dr. Bartlett will be admitted to the ICU. Disposition: Admitted in serious condition Impression: 1. Bilateral cerebellar strokes. 2. Basilar artery insufficiency. This note was generated with [employer] dictation software. It may contain incorrect words, spelling, and punctuation that were not noted in review of the chart prior to signing ED Disposition - Plan for ED Patient: Chief Complaint: Neuro S/Sx
[2017-08-02 18:55] LABS: M R Staph aureus DNA By PCR Negative (Negative); Probe Check PASS; Specimen Processing Control PASS
[2017-08-02] MEDS: Acetaminophen 325 MG Tablet 650 MG PO (21:57)
[2017-08-02] MEDS: Ciprofloxacin 500 MG Tablet PO (21:57)
[2017-08-02] MEDS: Aspirin E.C. 81 MG Tablet PO (21:58)
[2017-08-02] MEDS: Famotidine 20 MG Tablet PO (21:59)
[2017-08-03] VITALS (22 sets, daily range): BP systolic 106–175; BP diastolic 70–96; PULSE 64–89; RESP 12–26; TEMP 36.4–37.2; O2SAT 92–100; BMI 36.1
[2017-08-03 05:10] LABS: Cholesterol 86 mg/dL (200); High Density Lipoprotein 32 mg/dL; Triglycerides 100 mg/dL; Very Low Density Lipoprotein 20 mg/dL (5-40)
--- NOTE | 2017-08-03 08:55 | PCM.PN.HOSP ---
Patient Problems: Active and Suspected Problems (Last Reviewed 07/19/17 @ 13:19 by Jessica Neumann) Dysarthria due to acute cerebellar cerebrovascular accident (CVA) (Acute) Subjective: No further dysarthria. Vitals/I&O's: Vital Signs Temp Pulse Resp BP Pulse Ox 36.8 C 72 12 125/70 H 96 08/03/17 04:00 08/03/17 05:00 08/03/17 05:00 08/03/17 05:00 08/03/17 05:00 Oxygen Flow Rate (L/min) 3 Oxygen Delivery Method Nasal Cannula Weight: 81.9 kg Body Mass Index (BMI) 36.1 Intake and Output for Last 24 Hours 08/01/17 08/02/17 08/03/17 23:59 23:59 23:59 Output Total 300 / 300 Balance -300 / -300 General: Alert, Cooperative, No apparent distress HEENT: Atraumatic, PERRLA, EOMI, Normocephalic Oral: Moist Mucosa, No Gingival or Mucosal Lesions/ Ulcerations Neck: No Nodes, Thyroid Normal Size and Texture Lungs: Clear to auscultation, Normal air movement, No rhonchi, No wheeze Cardiovascular: Regular rate, Regular Rhythm, Normal S1, Normal S2, No murmurs Abdomen: Bowel Sounds Present, Soft, Non Tender, Non-Distended, No Hepato-splenomegaly Extremities: No edema, No Calf Tenderness Skin: No rashes, No breakdown, - - numerous tatoos Musculoskeletal: No Tenderness to Palpation of Joints or Extremities, No Muscle Wasting Neurological: Cranial nerves II-XII grossly intact, Neuro grossly intact, Motor Exam 5/5 strength throughout Psych/Mental Status: Normal Affect, Appropriate Laboratory Results 08/02/17 17:00: MRSA (PCR) Negative 08/02/17 17:15: Troponin I < 0.02 08/03/17 04:30: Triglycerides 100, Cholesterol 86, LDL Cholesterol 34, VLDL Cholesterol 20, HDL Cholesterol 32 L Current Medications Acetaminophen (Tylenol) 650 mg PO Q4H PRN PRN PRN Reason: PAIN Last Admin: 08/02/17 21:57 Dose: 650 mg Aspirin (Ecotrin) 81 mg PO QHS DEREK Last Admin: 08/02/17 21:58 Dose: 81 mg Atorvastatin Calcium (Lipitor) 80 mg PO DAILY [facility] Ciprofloxacin HCl (Cipro) 500 mg PO BID [facility] Last Admin: 08/02/17 21:57 Dose: 500 mg Clopidogrel Bisulfate (Plavix) 75 mg PO DAILY [facility] Cyanocobalamin ([facility]itamin [facility]) [facility] Famotidine (Pepcid) 20 mg PO BID [facility] Last Admin: 08/02/17 21:59 Dose: 20 mg Folic Acid (Folic Acid) 2 mg PO DAILY@0800 [facility] Labetalol HCl (Trandate) 10 mg IV Q10M PRN PRN Reason: MAINTAIN SBP GOALS Stop: 08/03/17 16:41 Pantoprazole Sodium (Protonix) 20 mg PO DAILY [facility] Psyllium Hydrophilic Mucilloid (Metamucil) 1 packet PO DAILY PRN PRN Reason: Constipation Sodium Chloride () 5 - 30 ml IV UD PRN PRN Reason: SALINE FLUSH Medical Necessity - Tobacco Use Smoking Status: Former smoker Tobacco Use: Non-smoker Assessment/Plan Active and Suspected Problems (Last Reviewed 07/19/17 @ 13:19 by Jessica Neumann) Dysarthria due to acute cerebellar cerebrovascular accident (CVA) (Acute) 1. Acute bilateral cerebellar infarcts MRA shows insufficient posterior circulation Follow-up remainder of neurologic workup with an echocardiogram, cardiology consultation. Will defer to neurology if felt ZUHAIR would be necessary or not. Patient will need to be initiated on anticoagulation once the risk for hemorrhagic transformation has lapsed. Symptoms improved Currently on dual antiplatelet therapy plus high intensity statin. 2. DVT prophylaxis with Lovenox Code Visit Inpatient E&M: 63116 [facility] Hosp L3
--- NOTE | 2017-08-03 09:00 | PN_ITS ---
Patient Problems: Active and Suspected Problems (Last Reviewed 07/19/17 @ 13:19 by Jessica Neumann) Dysarthria due to acute cerebellar cerebrovascular accident (CVA) (Acute) Subjective: No further dysarthria. Vitals/I&O's: Vital Signs Temp Pulse Resp BP Pulse Ox 36.8 C 72 12 125/70 H 96 08/03/17 04:00 08/03/17 05:00 08/03/17 05:00 08/03/17 05:00 08/03/17 05:00 Oxygen Flow Rate (L/min) 3 Oxygen Delivery Method Nasal Cannula Weight: 81.9 kg Body Mass Index (BMI) 36.1 Intake and Output for Last 24 Hours 08/01/17 08/02/17 08/03/17 23:59 23:59 23:59 Output Total 300 / 300 Balance -300 / -300 General: Alert, Cooperative, No apparent distress HEENT: Atraumatic, PERRLA, EOMI, Normocephalic Oral: Moist Mucosa, No Gingival or Mucosal Lesions/ Ulcerations Neck: No Nodes, Thyroid Normal Size and Texture Lungs: Clear to auscultation, Normal air movement, No rhonchi, No wheeze Cardiovascular: Regular rate, Regular Rhythm, Normal S1, Normal S2, No murmurs Abdomen: Bowel Sounds Present, Soft, Non Tender, Non-Distended, No Hepato- splenomegaly Extremities: No edema, No Calf Tenderness Skin: No rashes, No breakdown, - - numerous tatoos Musculoskeletal: No Tenderness to Palpation of Joints or Extremities, No Muscle Wasting Neurological: Cranial nerves II-XII grossly intact, Neuro grossly intact, Motor Exam 5/5 strength throughout Psych/Mental Status: Normal Affect, Appropriate Laboratory Results 08/02/17 17:00: MRSA (PCR) Negative 08/02/17 17:15: Troponin I < 0.02 08/03/17 04:30: Triglycerides 100, Cholesterol 86, LDL Cholesterol 34, VLDL Cholesterol 20, HDL Cholesterol 32 L Current Medications Acetaminophen (Tylenol) 650 mg PO Q4H PRN PRN PRN Reason: PAIN Last Admin: 08/02/17 21:57 Dose: 650 mg Aspirin (Ecotrin) 81 mg PO QHS DEREK Last Admin: 08/02/17 21:58 Dose: 81 mg Atorvastatin Calcium (Lipitor) 80 mg PO DAILY [facility] Ciprofloxacin HCl (Cipro) 500 mg PO BID [facility] Last Admin: 08/02/17 21:57 Dose: 500 mg Clopidogrel Bisulfate (Plavix) 75 mg PO DAILY [facility] Cyanocobalamin ([facility]itamin B[facility]) [facility] Famotidine (Pepcid) 20 mg PO BID [facility] Last Admin: 08/02/17 21:59 Dose: 20 mg Folic Acid (Folic Acid) 2 mg PO DAILY@0800 [facility] Labetalol HCl (Trandate) 10 mg IV Q10M PRN PRN Reason: MAINTAIN SBP GOALS Stop: 08/03/17 16:41 Pantoprazole Sodium (Protonix) 20 mg PO DAILY [facility] Psyllium Hydrophilic Mucilloid (Metamucil) 1 packet PO DAILY PRN PRN Reason: Constipation Sodium Chloride () 5 - 30 ml IV UD PRN PRN Reason: SALINE FLUSH Medical Necessity - Tobacco Use Smoking Status: Former smoker Tobacco Use: Non-smoker Assessment/Plan Active and Suspected Problems (Last Reviewed 07/19/17 @ 13:19 by Jessica Neumann) Dysarthria due to acute cerebellar cerebrovascular accident (CVA) (Acute) 1. Acute bilateral cerebellar infarcts * MRA shows insufficient posterior circulation * Follow-up remainder of neurologic workup with an echocardiogram, cardiology consultation. * Will defer to neurology if felt ZUHAIR would be necessary or not. * Patient will need to be initiated on anticoagulation once the risk for hemorrhagic transformation has lapsed. * Symptoms improved * Currently on dual antiplatelet therapy plus high intensity statin. 2. DVT prophylaxis with Lovenox Code Visit Inpatient E&M: 34114 Subs Hosp L3
--- NOTE | 2017-08-03 09:17 | PCM.CONS.GEN ---
Reason for Consult History of Present Illness: The patient is a 72 year old F [] per admit h&p:Stephany Eid is a 72 F who is post left CEA done on July 07 to the emergency room today due to an episode of difficulty speaking. She has had problems with dizziness and vertigo after her procedure and was admitted here on July 08 when she presented to the [facility] ED with visual changes and underwent CT angiogram of the neck and that did not show nay dissection. She reports she has had vertigo and dizziness since then . She was noted to have expressive dysphasia this morning and it lasted for about 10 minutes. She reports no focal weakness associated with this. Emergency room she underwent MRI and MRA of the brain . The MRI of the brain showed acute bilateral cerebellar infarcts with right greater than left as well as punctate focus of infarction in the right occipital cortex. The MRA of the brain also showed insufficient posterior circulation, with a small caliber of the left vertebral artery, terminating as posterior inferior cerebellar artery. When I saw the patient in the emergency room , alert and oriented to time place and person , she spoke in full sentences without difficulty. She denied any focal deficit, headache, dizziness, chest pain shortness of breath palpitations or rapid heartbeat. Past Medical History Past Medical History (Chronic Problems): Chronic Problems (Last Reviewed 07/19/17 @ 13:19 by Jessica Neumann) Hypertension (Chronic) Hyperlipemia (Chronic) [place] diverticulum (Chronic) GERD (gastroesophageal reflux disease) (Chronic) CAD (coronary artery disease) (Chronic) Marijuana use (Chronic) Obesity (BMI 30-39.9) (Chronic) Allergies quinapril [From Accupril] Adverse Reaction (Verified 08/02/17 09:55) Other Home Medications: Ambulatory Orders Medication Instructions Recorded Atenolol [Tenormin] 25 mg PO DAILY 01/18/17 Cholecalciferol (VIT D3) [Vitamin 2,000 unit PO DAILY 01/18/17 D3] Cyanocobalamin (Vitamin B-12) 1,000 mcg PO DAILY 01/18/17 [Vitamin B12] Folic Acid 2 mg PO DAILY@0800 01/18/17 Multivitamins,Therapeutic 1 tab PO DAILY 01/18/17 [Multivitamin] Omeprazole Magnesium [Prilosec Otc] 20 mg PO DAILY 01/18/17 Psyllium [Metamucil] 1 packet PO DAILY PRN 01/18/17 Aspirin E.C. [Ecotrin] 81 mg PO QHS 07/06/17 Atorvastatin Calcium [Lipitor] 80 mg PO QHS 07/06/17 Phenazopyridine HCl [Pyridium] 200 mg PO BID PRN PRN #6 tab 07/31/17 Amlodipine [Norvasc] 2.5 mg PO QHS 08/02/17 Ciprofloxacin [Cipro] 500 mg PO BID 08/02/17 Losartan Potassium [Cozaar] 100 mg PO DAILY 08/02/17 Surgical History: - - Tubal ligation, lymph node removal left neck due to necrotic lymph node. Left carotid endarterectomy on July 07, 2017. 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 Smoking Status: Former smoker Tobacco Use: Non-smoker - *Family History Maternal History Items: Hypertension Paternal History Items: Cancer - Colon Patient Problems: Active and Suspected Problems (Last Reviewed 07/19/17 @ 13:19 by Jessica Neumann) Dysarthria due to acute cerebellar cerebrovascular accident (CVA) (Acute) - Physical Exam Vital Signs Temp Pulse Resp BP Pulse Ox 36.8 C 72 12 125/70 H 96 08/03/17 04:00 08/03/17 05:00 08/03/17 05:00 08/03/17 05:00 08/03/17 05:00 Oxygen Flow Rate (L/min) 3 Oxygen Delivery Method Nasal Cannula Weight: 81.9 kg Body Mass Index (BMI) 36.1 Intake and Output for Last 24 Hours 08/01/17 08/02/17 08/03/17 23:59 23:59 23:59 Output Total 300 / 300 Balance -300 / -300 Laboratory Tests Past 24 Hrs 08/02/17 08/02/17 08/03/17 17:00 17:15 04:30 Troponin I < 0.02 Triglycerides 100 Cholesterol 86 LDL Cholesterol 34 VLDL Cholesterol 20 HDL Cholesterol 32 L MRSA (PCR) Negative Assessment/Plan Active and Suspected Problems (Last Reviewed 07/19/17 @ 13:19 by Jessica Neumann) Dysarthria due to acute cerebellar cerebrovascular accident (CVA) (Acute)
[2017-08-03] MEDS: Folic Acid 1 MG Tablet 2 MG PO (10:45)
[2017-08-03] MEDS: Ciprofloxacin 500 MG Tablet PO ×2 (10:45→21:24)
[2017-08-03] MEDS: Clopidogrel Bisulfate 75 MG Tablet PO (10:45)
[2017-08-03] MEDS: Famotidine 20 MG Tablet PO ×2 (10:46→21:24)
[2017-08-03] MEDS: Pantoprazole Sodium 20 MG Tablet PO (10:46)
[2017-08-03] MEDS: Cyanocobalamin 500 MCG Tablet 1000 MCG PO (10:46)
[2017-08-03] MEDS: Atorvastatin Calcium 80 MG Tablet PO (10:47)
--- NOTE | 2017-08-03 14:47 | CASEMGMT ---
Face to Face with patient for initial transition planning/care coordination assessment. RN ABIGAIL introduced self and role at [facility], pt voices understanding and consents to assessment at this time. Pt is sitting up in chair in no distress at this time. Pt A/Ox4 at this time and answers all questions appropriately at this time. Care providers, pharmacy, and demographics verified. See attached link. Referral to SW d/t no Rx insurance and also pt would like to complete advance directives. Message left with Ashley OCHOA at this time. Pt voices no further concerns/needs at this time. Advised pt to ask for CM if any further questions/concerns/needs arise, voices understanding. [place]
[2017-08-03] MEDS: Aspirin E.C. 81 MG Tablet PO (21:24)
[2017-08-04 02:00] VITALS: BP 145/88; PULSE 73; RESP 12; TEMP 37.5; O2SAT 99
[2017-08-04 03:52] VITALS: PULSE 68
[2017-08-04] MEDS: Enoxaparin 40 MG/0.4 ML Syringe SC (06:43)
[2017-08-04 07:07] VITALS: PULSE 77
[2017-08-04 08:07] VITALS: BP 134/76; PULSE 84; RESP 16; TEMP 36.5; O2SAT 100
--- NOTE | 2017-08-04 08:09 | PCM.PN.HOSP ---
Patient Problems: Active and Suspected Problems (Last Reviewed 07/19/17 @ 13:19 by Jessica Neumann) Dysarthria due to acute cerebellar cerebrovascular accident (CVA) (Acute) Subjective: No new issues. Vitals/I&O's: Vital Signs Temp Pulse Resp BP Pulse Ox 37.5 C H 77 12 145/88 H 99 08/04/17 02:00 08/04/17 07:07 08/04/17 02:00 08/04/17 02:00 08/04/17 02:00 Oxygen Flow Rate (L/min) 3 Oxygen Delivery Method Room Air Weight: 80.9 kg Body Mass Index (BMI) 36.1 Intake and Output for Last 24 Hours 08/02/17 08/03/17 08/04/17 23:59 23:59 23:59 Intake Total 675 / 675 50 / 50 Output Total 300 / 300 Balance 375 / 375 50 / 50 General: Alert, Cooperative, No apparent distress HEENT: Atraumatic, Normocephalic Lungs: Clear to auscultation, Normal air movement, No rhonchi, No wheeze Cardiovascular: Regular rate, Regular Rhythm, Normal S1, Normal S2, No murmurs Abdomen: Bowel Sounds Present, Soft, Non Tender, Non-Distended, No Hepato-splenomegaly Extremities: No edema, No Calf Tenderness Psych/Mental Status: Normal Affect, Appropriate Current Medications Acetaminophen (Tylenol) 650 mg PO Q4H PRN PRN PRN Reason: PAIN Last Admin: 08/02/17 21:57 Dose: 650 mg Aspirin (Ecotrin) 81 mg PO QHS [facility] Last Admin: 08/03/17 21:24 Dose: 81 mg Atorvastatin Calcium (Lipitor) 80 mg PO DAILY [facility] Last Admin: 08/03/17 10:47 Dose: 80 mg Ciprofloxacin HCl (Cipro) 500 mg PO BID [facility] Last Admin: 08/03/17 21:24 Dose: 500 mg Clopidogrel Bisulfate (Plavix) 75 mg PO DAILY [facility] Last Admin: 08/03/17 10:45 Dose: 75 mg Cyanocobalamin (Vitamin B12) 1,000 mcg PO DAILYCM [facility] Last Admin: 08/03/17 10:46 Dose: 1,000 mcg Enoxaparin Sodium (Lovenox) 40 mg SC DAILY@0600 [facility] Last Admin: 08/04/17 06:43 Dose: 40 mg Famotidine (Pepcid) 20 mg PO BID [facility] Last Admin: 08/03/17 21:24 Dose: 20 mg Folic Acid (Folic Acid) 2 mg PO DAILY@0800 [facility] Last Admin: 08/03/17 10:45 Dose: 2 mg Pantoprazole Sodium (Protonix) 20 mg PO DAILY [facility] Last Admin: 08/03/17 10:46 Dose: 20 mg Psyllium Hydrophilic Mucilloid (Metamucil) 1 packet PO DAILY PRN PRN Reason: Constipation Sodium Chloride () 5 - 30 ml IV UD PRN PRN Reason: SALINE FLUSH Medical Necessity - Tobacco Use Smoking Status: Former smoker Tobacco Use: Non-smoker Assessment/Plan Active and Suspected Problems (Last Reviewed 07/19/17 @ 13:19 by Jessica Neumann) Dysarthria due to acute cerebellar cerebrovascular accident (CVA) (Acute) 1. Acute bilateral cerebellar infarcts MRA shows insufficient posterior circulation Follow-up remainder of neurologic workup with an echocardiogram, cardiology consultation. Will defer to neurology if felt ZUHAIR would be necessary or not. Patient will need to be initiated on anticoagulation once the risk for hemorrhagic transformation has lapsed. Symptoms improved Currently on dual antiplatelet therapy plus high intensity statin. keep SBP bw 130-140. follow up 2d echo. 2. DVT prophylaxis with Lovenox Code Visit Inpatient E&M: 26496 Subs Hosp L2
--- NOTE | 2017-08-04 08:27 | ECHOD_ITS ---
Reason For Study: CVA Procedure This was a 2D Doppler, Color Flow transthoracic echocardiogram. Exam performed portable in ICU/CCU. Left Ventricle Normal size and thickness. The estimated ejection fraction is 70 %. Stage 1 diastolic dysfunction. No regional wall motion abnormalities noted. Right Ventricle Normal size and thickness. Normal systolic function. Atria Normal left atrium. Normal right atrium. Normal atrial septum. Mitral Valve Mild diffuse mitral valve thickening. Moderate mitral annular calcification extending into the posterior leaflet. Mild mitral valve stenosis. Tricuspid Valve Normal tricuspid valve. Trivial tricuspid valve insufficiency. Right ventricular systolic pressure estimated to be 38 mmHg. Mild pulmonary hypertension. Aortic Valve Trisinus/trileaflet aortic valve. Mild focal aortic valve thickening. There is no aortic stenosis. Pulmonic Valve Normal pulmonic valve. Great Vessels Normal aortic root. Normal arch. Normal inferior vena cava. Inferior vena cava collapse with sniff. Pericardium/Pleural No pericardial effusion. MMode/2D Measurements & Calculations LVIDd: 3.7 cm IVSd: 1.4 cm Ao root diam: 3.2 cm LVIDs: 2.1 cm LVPWd: 1.2 cm RVDd: 2.5 cm FS: 43.4 % LAV(MOD-bp): 19.8 ml EDV(MOD-sp4): 74.6 ml SV(MOD-sp4): 51.6 ml LAV(MOD-bp) Indexed: 11.4 ml/m2 ESV(MOD-sp4): 23.0 ml LAV(MOD-sp2): 31.8 ml EF(MOD-sp4): 69.2 % LAV(MOD-sp4): 9.8 ml LA A4 area: 6.9 cm2 RA A4 area: 10.8 cm2 Time Measurements MV dec time: 0.30 sec Doppler Measurements & Calculations MV E max marshall: 117.1 cm/sec Lat Peak E' Marshall: 7.9 cm/sec Med Peak E' Marshall: 5.9 cm/sec MV A max marshall: 149.5 cm/sec E/E' lat: 14.8 E/E' med: 19.9 MV E/A: 0.78 MV V2 max: 159.8 cm/sec Ao V2 max: 157.8 cm/sec LV V1 max: 146.0 cm/sec MV max P.2 mmHg Ao max P.0 mmHg LV V1 max P.5 mmHg MV V2 mean: 115.0 cm/sec MV mean P.6 mmHg MV V2 VTI: 45.0 cm PA V2 max: 98.6 cm/sec TR max marshall: 277.6 cm/sec TR max P.9 mmHg Interpretation Summary The estimated ejection fraction is 70 %. Stage 1 diastolic dysfunction. Mild mitral valve stenosis. Trivial tricuspid valve insufficiency. Right ventricular systolic pressure estimated to be 38 mmHg. Mild pulmonary hypertension. Compared to echo report dated 07/04/2017, no appreciable changes noted. Ordering Physician: Sridhar Gonzalez Referring Physician: Bright Gupta Performed By: Krystal Acevedo RDCS
[2017-08-04] MEDS: Clopidogrel Bisulfate 75 MG Tablet PO (09:56)
[2017-08-04] MEDS: Ciprofloxacin 500 MG Tablet PO (09:56)
[2017-08-04] MEDS: Cyanocobalamin 500 MCG Tablet 1000 MCG PO (09:56)
[2017-08-04] MEDS: Folic Acid 1 MG Tablet 2 MG PO (09:56)
[2017-08-04] MEDS: Atorvastatin Calcium 80 MG Tablet PO (09:57)
--- NOTE | 2017-08-04 10:25 | CASEMGMT ---
Addendum entered by Siena Segovia 08/04/17 14:44: RN spoke w/the neurologist, it is not anticipated pt will need to go home on any additional medications. NICOLE Tilley, [employer] OPERATOR Original Note: Pt had indicated yesterday to CM she wants to complete POA forms. SW met w/pt, and son in room. Both pt and wanted to complete POA/LW forms. Forms completed, originals and copies given to pt and and , copies placed in chart. Pt also has no coverage for meds. SW explained if any meds have coupons, SW will provide them to pt. Pt normally covers the cost of her meds out of pocket. NICOLE Tilley, MARINE TOWER OPERATOR
--- NOTE | 2017-08-04 11:30 | PCM.PN.NEU ---
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 echo done, no result yet - Physical Exam General: Alert, Oriented x3, Cooperative HEENT: Atraumatic, PERRLA, EOMI, Normocephalic Neck: Supple, No JVD, Negative Carotid Bruits Lungs: Clear to auscultation, Normal air movement Cardiovascular: Regular rate, No murmurs Abdomen: Bowel Sounds Present, Soft, Non Tender Extremities: No edema, Capillary Refill Less than 3 Seconds Skin: No rashes, No breakdown Musculoskeletal: No Tenderness to Palpation of Joints or Extremities Neurological: Cranial nerves II-XII grossly intact Psych/Mental Status: Normal Affect, Appropriate Vital Signs Temp Pulse Resp BP Pulse Ox 36.5 C L 84 16 134/76 H 100 08/04/17 08:07 08/04/17 08:07 08/04/17 08:07 08/04/17 08:07 08/04/17 08:07 Oxygen Flow Rate (L/min) 3 Oxygen Delivery Method Room Air Weight: 80.9 kg Body Mass Index (BMI) 36.1 Intake and Output for Last 24 Hours 08/02/17 08/03/17 08/04/17 23:59 23:59 23:59 Intake Total 675 / 675 50 / 50 Output Total 300 / 300 Balance 375 / 375 50 / 50 Current Medications Generic Name Dose Route Start Last Admin Trade Name Freq PRN Reason Stop Dose Admin Acetaminophen 650 mg 08/02/17 20:56 08/02/17 21:57 Tylenol PO 650 mg Q4H PRN PRN Administration PAIN Aspirin 81 mg 08/02/17 22:00 08/03/17 21:24 Ecotrin PO 81 mg QHS DEREK Administration Atorvastatin Calcium 80 mg 08/03/17 10:00 08/04/17 09:57 Lipitor PO 80 mg DAILY DEREK Administration Ciprofloxacin HCl 500 mg 08/02/17 22:00 08/04/17 09:56 Cipro PO 500 mg BID DEREK Administration Clopidogrel Bisulfate 75 mg 08/03/17 10:00 08/04/17 09:56 Plavix PO 75 mg DAILY DEREK Administration Cyanocobalamin 1,000 mcg 08/03/17 08:00 08/04/17 09:56 Vitamin B12 PO 1,000 mcg DAILYCM DEREK Administration Enoxaparin Sodium 40 mg 08/04/17 06:00 08/04/17 06:43 Lovenox SC 40 mg DAILY@0600 DEREK Administration Famotidine 20 mg 08/02/17 22:00 08/03/17 21:24 Pepcid PO 20 mg BID DEREK Administration Folic Acid 2 mg 08/03/17 08:00 08/04/17 09:56 Folic Acid PO 2 mg DAILY@0800 DEREK Administration Pantoprazole Sodium 20 mg 08/03/17 10:00 08/03/17 10:46 Protonix PO 20 mg DAILY DEREK Administration Psyllium Hydrophilic Mucilloid 1 packet 08/02/17 16:47 Metamucil PO DAILY PRN Constipation Sodium Chloride 5 - 30 ml 08/02/17 17:24 IV UD PRN SALINE FLUSH Medical Necessity - Tobacco Use Smoking Status: Former smoker Tobacco Use: Non-smoker Assessment/Plan Active and Suspected Problems (Last Reviewed 07/19/17 @ 13:19 by Jessica Neumann) 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 She has a basilar occlusion. It is not clear if this was a operative infarct or if it is something that happened more recently. She has been symptomatic intermittently with dizziness since her surgery. Await repeat echocardiogram Monitor on telemetry Platelet therapy for now but will likely need anticoagulation Her blood pressure, I would withhold all antihypertensives if her blood pressure systolic is less than 120 ideally I would like to see her systolic blood pressure between 130 and 140 given her basilar occlusion. ok to ia home suggest 30 day event monitor
[2017-08-04 12:09] VITALS: PULSE 93
[2017-08-04] MEDS: Pantoprazole Sodium 20 MG Tablet PO (12:37)
[2017-08-04 13:00] VITALS: BP 115/80; PULSE 88; RESP 15; TEMP 36.4; O2SAT 99
[2017-08-04] MEDS: Acetaminophen 325 MG Tablet 650 MG PO (13:38)
--- NOTE | 2017-08-04 15:59 | PCM.DC ---
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 slurred speach. dizziness. one-sided weakness. Allergies/Adverse Reactions: Allergies quinapril [From Accupril] Adverse Reaction (Verified 08/02/17 09:55) Other Medications to take at Discharge Atenolol [Tenormin] 25 mg PO DAILY 01/18/17 Cholecalciferol (VIT D3) [Vitamin D3] 2,000 unit PO DAILY 01/18/17 Cyanocobalamin (Vitamin B-12) [Vitamin B12] 1,000 mcg PO DAILY 01/18/17 Folic Acid 2 mg PO DAILY@0800 01/18/17 Multivitamins,Therapeutic [Multivitamin] 1 tab PO DAILY 01/18/17 Omeprazole Magnesium [Prilosec Otc] 20 mg PO DAILY 01/18/17 Psyllium [Metamucil] 1 packet PO DAILY PRN 01/18/17 Aspirin E.C. [Ecotrin] 81 mg PO QHS 07/06/17 Atorvastatin Calcium [Lipitor] 80 mg PO QHS 07/06/17 Ciprofloxacin [Cipro] 500 mg PO BID 08/02/17 Clopidogrel Bisulfate [Plavix] 75 mg PO DAILY tablet 08/04/17 Primary Care Physician: Bright Gupta MD [Primary Care Provider] - Within 2 Weeks Please Follow Up With: Grace Lacy NP-C When: Tomorrow Proposed Discharge Date: 08/04/17
--- NOTE | 2017-08-04 16:02 | PCM.DC.SUM ---
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) (Acute) - Secondary Discharge Diagnosis Chronic Problems (Last Reviewed 07/19/17 @ 13:19 by Jessica Neumann) Hypertension (Chronic) Hyperlipemia (Chronic) [place] diverticulum (Chronic) GERD (gastroesophageal reflux disease) (Chronic) CAD (coronary artery disease) (Chronic) Marijuana use (Chronic) Obesity (BMI 30-39.9) (Chronic) Hospital Course and Treatment Imaging Results: 08/04/17 08:27 Echo Complete [ECHO] Routine Clinical Impression(s) from Imaging Studies Head MRA 08/02/17 10:47 IMPRESSION: Insufficient posterior circulation : Small caliber left vertebral artery, terminating as posterior inferior cerebellar artery. Thready flow in the distal right vertebral artery and questionable short segment occlusion at the proximal basilar artery. Mid and distal basilar artery is small in caliber and gives rise to a small caliber right posterior cerebral artery with decreased flow related signal when compared to the contralateral side. The left posterior cerebral artery is in origin and demonstrates normal flow related signal. at 1346 Reported and signed by: Gertrude Catalan MD N.B. : The above information has been verbally conveyed by Gerrtude Catalan MD to , Covering Physician, on 08/02/2017 13:51:33 (ET). Electronically Signed: Gertrude Catalan MD at 13:45 EDT Tel , Service support , N.B. : The above information has been verbally conveyed by Gertrude Catalan MD to , Covering Physician, on 08/02/2017 13:51:33 (ET). Operations: None Procedures: None Summary of Care Provided: The patient is a 72 year old F resents with slurred speech. Patient had an MRI of her brain that showed acute bilateral cerebellar infarcts. Patient slurred speech and dizziness resolved. Patient underwent remainder of her neurologic workup that showed insufficient posterior circulation: Small caliber left vertebral artery, thready flow in the distal right vertebral artery with questionable short segment occlusion of the proximal basilar artery. Patient underwent repeat echocardiogram that showed ejection fraction of 70% and no shunt. Patient was seen by neurology and to be on dual antiplatelet therapy with aspirin Plavix. Given concern for embolic phenomenon it is also recommended patient be started on anticoagulation but not at this time given the potential risk for hemorrhagic transformation with the acute stroke. Neurology also recommended an event monitor for her. Patient has appointment scheduled already with Grace Lacy on the . Patient will continue with that appointment but also get set up for an event monitor at the cardiology office. From neurology's perspective, it is unclear if the patient's strokes were operative or more recent but patient will continue the current workup as spelled out above. [] Discharge Diet: Low fat/ Low Cholesterol Discharge Activity: Return to Normal Activity Call your doctor if you observe: - - worsening speaking. slurred speach. dizziness. one-sided weakness. Home Medications: Medications to take at Discharge Atenolol [Tenormin] 25 mg PO DAILY 01/18/17 Cholecalciferol (VIT D3) [Vitamin D3] 2,000 unit PO DAILY 01/18/17 Cyanocobalamin (Vitamin B-12) [Vitamin B12] 1,000 mcg PO DAILY 01/18/17 Folic Acid 2 mg PO DAILY@0800 01/18/17 Multivitamins,Therapeutic [Multivitamin] 1 tab PO DAILY 01/18/17 Omeprazole Magnesium [Prilosec Otc] 20 mg PO DAILY 01/18/17 Psyllium [Metamucil] 1 packet PO DAILY PRN 01/18/17 Aspirin E.C. [Ecotrin] 81 mg PO QHS 07/06/17 Atorvastatin Calcium [Lipitor] 80 mg PO QHS 07/06/17 Ciprofloxacin [Cipro] 500 mg PO BID 08/02/17 Clopidogrel Bisulfate [Plavix] 75 mg PO DAILY tablet 08/04/17 Primary Care Physician: Bright Gupta MD [Primary Care Provider] - Within 2 Weeks Please Follow Up With: Grace Lacy NP-C When: Tomorrow Disposition: Home Minutes spent on discharge:: 40 Patient Condition:: Good Medical Necessity - Tobacco Use Smoking Status: Former smoker Tobacco Use: Non-smoker Meaningful Use Info Meaningful Use Diagnoses (Choose all that apply): Ischemic CVA - CVA Therapy Assessed for PT,OT and/or ST?: Yes - Ischemic Stroke Antithrombotic order at d/c?: No Reason antithrombotic not ordered: Medical Contraindication Dx of Atrial fib/flutter?: No Anticoagulant at discharge?: No Reason anticoagulant not ordered: Procedure not Indicated Statins at discharge?: Yes Primary Dx Acute Ischemic CVA?: Yes IV tPA ordered during stay?: No Reason IV t-PA not ordered: Procedure not Indicated Code Visit Inpatient E&M: 42282 Disch Hosp
== END 2017-08-04 17:05 | disposition home or self-care (01) | DRG 65 ==
LOC: ED 15:45 → ICU 15:54
PROVIDERS: Admitting Provider Internal Medicine; Emergency Provider Emergency Medicine; Family Provider Family Medicine; PCP Family Medicine
DX: I63.22 Cerebral infarction due to unspecified occlusion or stenosis of basilar artery (principal); N39.0 Urinary tract infection, site not specified; G45.0 Vertebro-basilar artery syndrome; R47.01 Aphasia; I10 Essential (primary) hypertension; I69.322 Dysarthria following cerebral infarction; Z87.891 Personal history of nicotine dependence; I25.10 Atherosclerotic heart disease of native coronary artery without angina pectoris; K21.9 Gastro-esophageal reflux disease without esophagitis; K22.5 Diverticulum of esophagus, acquired; I65.22 Occlusion and stenosis of left carotid artery; E78.5 Hyperlipidemia, unspecified; Z98.890 Other specified postprocedural states; F12.90 Cannabis use, unspecified, uncomplicated; E66.9 Obesity, unspecified; Z68.36 Body mass index [BMI] 36.0-36.9, adult; Z79.82 Long term (current) use of aspirin; Z79.899 Other long term (current) drug therapy; R42 Dizziness and giddiness; R53.83 Other fatigue; I69.892 Facial weakness following other cerebrovascular disease; I69.821 Dysphasia following other cerebrovascular disease; Z79.02 Long term (current) use of antithrombotics/antiplatelets
CPT/HCPCS: 70450; 70544; 70549; 70553; 71045; 80048; 80061; 80076; 81001; 83690; 83880; 84484; 85025; 87086; 87088; 87186; 87641; 92507; 92523; 93005; 93306; 96360; 97162; 97166; 97530; 97802; 99282; 99284; A9585; J7030; J7040; A4216

== ENCOUNTER → 2017-08-24 20:00 | Outpatient (CLI) | payer MEDICARE, OTHER, SELFPAY | PROVIDERS: Family Provider Family Medicine; PCP Family Medicine; Visit Provider Nurse Practitioner Acute Care | DX: G47.10 Hypersomnia, unspecified (principal); R06.83 Snoring | CPT/HCPCS: 95810 ==

== ENCOUNTER → 2017-09-28 21:44 | Outpatient (CLI) | payer MEDICARE, OTHER, SELFPAY | PROVIDERS: Family Provider Family Medicine; PCP Family Medicine; Visit Provider Psychiatry & Neurology Neurology | DX: G47.33 Obstructive sleep apnea (adult) (pediatric) (principal) | CPT/HCPCS: 95811 ==

== ENCOUNTER → 2018-07-12 09:57 | Outpatient (CLI) | payer MEDICARE, OTHER, SELFPAY ==
--- NOTE | 2018-07-12 10:00 | CDU_ITS ---
Reason For Study: STENOSIS Rt. Velocities/BP Lt. Velocities/BP Prox CCA 75/21 cm/sec. Prox CCA 76/24 cm/sec. Mid CCA 75/25 cm/sec. Mid CCA 60/19 cm/sec. Dist CCA 62/23 cm/sec. Dist CCA 70/28 cm/sec. Prox ICA 66/26 cm/sec. Prox ICA 92/34 cm/sec. Mid ICA 68/26 cm/sec. Mid ICA 90/38 cm/sec. Dist ICA 86/32 cm/sec. Dist ICA 102/41 cm/sec. Rt. ICA/CCA = 1.1. Lt. ICA/CCA = 1.7. Prox ECA 68/14 cm/sec. Prox ECA 93/21 cm/sec. Rt. Vert. 46/22 cm/sec. Lt. Vert. 36/15 cm/sec. Right Extracranial There is intimal thickening but no significant atherosclerotic plaque noted in the right common carotid artery. There is heterogeneous, irregular atherosclerotic plaque noted in the right internal carotid artery. The atherosclerotic plaque causes acoustic shadowing. There is heterogeneous, smooth atherosclerotic plaque noted in the right external carotid artery. Antegrade flow is noted in the right vertebral artery. Left Extracranial There is homogeneous, smooth atherosclerotic plaque noted in the left common carotid artery. There is heterogeneous, smooth atherosclerotic plaque noted in the left internal carotid artery. There is heterogeneous, irregular atherosclerotic plaque noted in the left external carotid artery. Antegrade flow is noted in the left vertebral artery. Procedure Carotid Duplex [id number]. Exam performed in department. 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
== END ==
PROVIDERS: Family Provider Family Medicine; PCP Family Medicine; Referring Provider Surgery; Visit Provider Surgery
DX: I65.23 Occlusion and stenosis of bilateral carotid arteries (principal)
CPT/HCPCS: 93880

== ENCOUNTER → 2018-10-17 | Outpatient (CLI) | payer MEDICARE, OTHER, SELFPAY | END | disposition home or self-care (01) | LOC: SL 13:28 | PROVIDERS: Family Provider Family Medicine; PCP Family Medicine; Visit Provider Clinical Nurse Specialist Acute Care | DX: G47.33 Obstructive sleep apnea (adult) (pediatric) (principal) | CPT/HCPCS: 98960; G0463 ==

== ENCOUNTER → 2023-12-01 | Outpatient (CLI) | payer MEDICARE, OTHER, SELFPAY ==
--- NOTE | 2023-12-01 15:03 | MRI_ITS ---
STUDY: MRI BRAIN WITHOUT CONTRAST REASON FOR EXAM: Female, 78 years old. TIA, VISION CHANGES TECHNIQUE: Standardized multiplanar fat and water weighted pulse sequences were obtained. COMPARISON: None. FINDINGS: There is severe cerebral atrophy with widening of the extra-axial spaces and ventricular dilatation. There are multiple confluent white matter hyperintensities, distributed throughout the deep white matter tracts of the cerebral hemispheres, consistent with severe chronic white matter ischemic changes. There is no evidence for recent intracranial ischemia or other cause of cytotoxic edema on diffusion weighted imaging (DWI). Normal T2* images of the brain without demonstrated susceptibility artifact. There is no demonstrated hemosiderin stain. Normal bilateral basal ganglia. Normal thalami. There is no extra-axial fluid accumulation. Normal flow voids within the major intracranial circulation suggesting patency by spin echo criteria. Normal sella turcica, pituitary gland, infundibular stalk, optic chiasm and hypothalamus. Normal tectal plate and pineal gland. Normal midbrain, christel and medulla. Normal cerebellum. Normal basal cisterns. Normal bilateral temporal bones. Normal bilateral internal auditory canals. No demonstrated orbital abnormality, within the constraints of a routine brain study. There is mucoperiosteal inflammatory disease of the paranasal sinuses consistent with mild chronic sinusitis. Normal calvarium and skull base. Normal visualized soft tissue structures. Normal visualized upper cervical spine. MRI/Brain without Contrast IMPRESSION: Involutional changes of the brain, as described above. No acute infarct. Electronically Signed: Brandan Kaplan MD at 14:22 EDT ,
== END | disposition home or self-care (01) ==
LOC: MRI 14:54
PROVIDERS: PCP Family Medicine; Referring Provider Family Medicine; Visit Provider Family Medicine
DX: G45.9 Transient cerebral ischemic attack, unspecified (principal); H53.9 Unspecified visual disturbance
CPT/HCPCS: 70551